=== PATIENT | female | born 1955 | race American Indian/Alaskan Native ===

== ENCOUNTER 2016-08-08 18:42 | Emergency (ER) | payer MEDICAID ==
[2016-08-08 19:21] VITALS: BP 149/98
[2016-08-08 19:35] LABS: Basophils % (Auto) 0.7 % (0.0-1.8); Eosinophils % (Auto) 3.5 % (0.0-4.3); Hemoglobin 13.9 gm/dl (10.1-14.3); Mean Corpuscular HGB Conc 32 % (30-34); Mean Corpuscular Hemoglobin 27 pg (28-32); Mean Corpuscular Volume 84 fl (79-97); Platelet Count 279 K/mm3 (140-440); Red Cell Distribution Width 13.8 % (13.2-15.2); White Blood Count 6.8 K/mm3 (4.5-11.0)
[2016-08-08 20:15] LABS: Anion Gap 17 mmol/L; BUN/Creatinine Ratio 24.28; Blood Urea Nitrogen 17 mg/dL (7-17); Calcium 9.6 mg/dL (8.4-10.2); Carbon Dioxide 27 mmol/L (22-30); Chloride 100.1 mmol/L (98-107); Glucose 93 mg/dL (65-100); Potassium 4.1 mmol/L (3.6-5.0); Sodium 140 mmol/L (137-145)
--- NOTE | 2016-08-09 09:02 | XRay Report ---
Chest 2 views: History: Shortness of breath. Findings: Normal cardiomediastinal silhouette. Trachea is midline. No consolidation, pneumothorax or pleural effusion. Impression: No acute cardiopulmonary findings.
== END 2016-08-08 21:30 | disposition left against medical advice (07) ==
LOC: ED 18:42
DX: J40 Bronchitis, not specified as acute or chronic (principal); J44.9 Chronic obstructive pulmonary disease, unspecified; R06.02 Shortness of breath; R05 Cough
CPT/HCPCS: 36415; 71020; 80048; 84484; 85025; 93005; 93010

== ENCOUNTER 2018-10-20 03:41 | Inpatient (IN) | payer MEDICAID ==
[2018-10-20] MEDS ORDERED: NACL 0.9% 1000 ML 1,000 ML IV ONE (03:45)
[2018-10-20] MEDS ORDERED: PROVENTIL IH ONE (03:45)
[2018-10-20] MEDS ORDERED: ATROVENT IH ONE (03:45)
[2018-10-20] MEDS ORDERED: MAGNESIUM SULFATE 2GM/50ML 2 GM/50 ML BAG IV ONE (03:45)
--- NOTE | 2018-10-20 03:48 | Emergency Department Report ---
ED Shortness of Breath HPI - General Chief Complaint: Dyspnea/Respdistress Stated Complaint: JERMAINE Time Seen by Provider: 10/20/18 03:44 Source: patient, EMS (ems notes not available at time of chart dictation), RN notes reviewed, old records reviewed Mode of arrival: Stretcher (verbal report received from EMS) Limitations: Physical Limitation - History of Present Illness Initial Comments: This is a 63-year-old female. I have evaluated this patient in the past. The patient has a past medical history of COPD, COPD exacerbation. The patient is brought to the hospital today by emergency medical services for presumed COPD exacerbation. The patient reports no DVT or pulmonary embolism risk factors. She describes painless cough, wheezing, shortness of breath, dry cough, no fevers or chills. She is not having pain. She was given steroids, magnesium, started on CPAP in the field. These interventions somewhat improve her symptoms, but they did not resolve them. She still having constant wheezing, cough and shortness of breath. It worsens with physical exertion, decreases with rest, and decreases with supportive care. MD Complaint: shortness of breath, cough -: Gradual Consistency: constant Improves With: oxygen, rest, bronchodilators, medication Worsens With: lying flat Known History Of: COPD - Related Data Home Medications Medication Instructions Recorded Confirmed Last Taken hydroCHLOROthiazide [HCTZ] 25 mg PO DAILY 04/12/15 05/11/15 Unknown Tiotropium [Spiriva] 18 mcg IH QDAY 05/11/15 05/11/15 Unknown Previous Rx's Medication Instructions Recorded Last Taken Type ALBUTEROL Inhaler (OR & NICU) 2 puff IH QID PRN #1 inhalation 03/24/15 Unknown Rx [ProAir HFA Inhaler] Fluticasone/Salmeterol [Advair 1 puff IH BID #1 disk.w.dev 03/24/15 Unknown Rx Diskus 250-50 mcg] Budesonide [Pulmicort Respules] 0.5 mg IH Q12HRT #60 nebu 05/14/15 Unknown Rx DOXYCYCLINE Hyclate [Vibramycin 100 mg PO BID #10 capsule 05/14/15 Unknown Rx CAP] Ipratropium/Albuterol Sulfate 1 ampul IH TIDRT #90 ampul.neb 05/14/15 Unknown Rx [DUONEB *Not for PRN Use*] Prednisone [predniSONE 10 mg 10 mg PO .TAPER #1 tab.ds.pk 05/14/15 Unknown Rx (6-Day Pack, 21 Tabs)] traMADol [Ultram 50 MG tab] 50 mg PO Q6HR PRN #20 tablet 05/14/15 Unknown Rx Ibuprofen [Motrin] 800 mg PO Q8HR PRN #20 tablet 08/12/15 Unknown Rx traMADol [Ultram 50 MG tab] 50 mg PO Q4HR PRN #20 tablet 08/12/15 Unknown Rx Allergies Allergy/AdvReac Type Severity Reaction Status Date / Time No Known Allergies Allergy Unverified 06/07/13 12:53 ED Review of Systems ROS: Stated complaint: JERMAINE Other details as noted in HPI Constitutional: malaise, weakness. denies: fever Eyes: denies: eye discharge ENT: congestion Respiratory: shortness of breath, wheezing Cardiovascular: denies: syncope Musculoskeletal: denies: back pain Skin: denies: lesions Neurological: weakness Psychiatric: anxiety ED Past Medical Hx - Past Medical History Hx Hypertension: Yes Hx Heart Attack/AMI: No Hx Congestive Heart Failure: No Hx Diabetes: No Hx Deep Vein Thrombosis: No Hx Pulmonary Embolism: No Hx Sickle Cell Disease: No Hx Asthma: Yes Hx COPD: Yes Hx Tuberculosis: No Hx HIV: No - Surgical History Hx Coronary Stent: No Hx Pacemaker: No Hx Internal Defibrillator: No - Social History Smoking Status: Current Every Day Smoker Substance Use Type: Alcohol - Medications Home Medications: Home Medications Medication Instructions Recorded Confirmed Last Taken Type ALBUTEROL Inhaler (OR & NICU) 2 puff IH QID PRN #1 inhalation 03/24/15 05/11/15 Unknown Rx [ProAir HFA Inhaler] Fluticasone/Salmeterol [Advair 1 puff IH BID #1 disk.w.dev 03/24/15 05/11/15 Unknown Rx Diskus 250-50 mcg] hydroCHLOROthiazide [HCTZ] 25 mg PO DAILY 04/12/15 05/11/15 Unknown History Tiotropium [Spiriva] 18 mcg IH QDAY 05/11/15 05/11/15 Unknown History Budesonide [Pulmicort Respules] 0.5 mg IH Q12HRT #60 nebu 05/14/15 Unknown Rx DOXYCYCLINE Hyclate [Vibramycin 100 mg PO BID #10 capsule 05/14/15 Unknown Rx CAP] Ipratropium/Albuterol Sulfate 1 ampul IH TIDRT #90 ampul.neb 05/14/15 Unknown Rx [DUONEB *Not for PRN Use*] Prednisone [predniSONE 10 mg 10 mg PO .TAPER #1 tab.ds.pk 05/14/15 Unknown Rx (6-Day Pack, 21 Tabs)] traMADol [Ultram 50 MG tab] 50 mg PO Q6HR PRN #20 tablet 05/14/15 Unknown Rx Ibuprofen [Motrin] 800 mg PO Q8HR PRN #20 tablet 08/12/15 Unknown Rx traMADol [Ultram 50 MG tab] 50 mg PO Q4HR PRN #20 tablet 08/12/15 Unknown Rx ED Physical Exam - General Limitations: No Limitations, Physical Limitation General appearance: alert, anxious, in distress - Head Head exam: Present: atraumatic, normocephalic - Eye Eye exam: Present: normal appearance, EOMI. Absent: nystagmus - ENT ENT exam: Present: normal exam, normal orophraynx, mucous membranes moist, normal external ear exam - Neck Neck exam: Present: normal inspection, full ROM. Absent: tenderness, meningismus - Respiratory Respiratory exam: Present: respiratory distress, wheezes, rhonchi - Cardiovascular Cardiovascular Exam: Present: regular rate, normal rhythm, normal heart sounds. Absent: bradycardia, tachycardia, irregular rhythm, systolic murmur, diastolic murmur, rubs, gallop - GI/Abdominal GI/Abdominal exam: Present: soft. Absent: distended, tenderness, guarding, rebound, rigid, pulsatile mass - Extremities Exam Extremities exam: Present: normal inspection, full ROM, other (2+ pulses noted in the bilateral upper, lower extremities. Compartments soft. No long bony tenderness. The pelvis is stable.). Absent: pedal edema, joint swelling, calf tenderness - Back Exam Back exam: Present: normal inspection, full ROM. Absent: tenderness, CVA tenderness (R), CVA tenderness (L), paraspinal tenderness, vertebral tenderness - Neurological Exam Neurological exam: Present: alert, other (Extraocular movements intact. Tongue midline. No facial droop. Facial sensation intact to light touch in the V1, V2, V3 distribution bilaterally. 5 and 5 strength in 4 extremities.. Sensation is intact to light touch in 4 extremities.). Absent: motor sensory deficit - Psychiatric Psychiatric exam: Present: anxious - Skin Skin exam: Present: warm, dry, intact, normal color. Absent: rash ED Course Vital Signs 10/20/18 10/20/18 10/20/18 03:42 03:46 03:57 Temperature 98.8 F Pulse Rate 110 H 111 H Respiratory 23 26 H Rate Blood Pressure Blood Pressure 161/113 [Left] O2 Sat by Pulse 95 99 99 Oximetry 10/20/18 10/20/18 10/20/18 03:58 04:00 04:09 Temperature Pulse Rate 112 H 111 H Respiratory 32 H 20 22 Rate Blood Pressure 161/113 Blood Pressure [Left] O2 Sat by Pulse 100 100 99 Oximetry 10/20/18 04:14 Temperature Pulse Rate 114 H Respiratory 20 Rate Blood Pressure Blood Pressure 152/96 [Left] O2 Sat by Pulse 100 Oximetry ED Medical Decision Making - Lab Data Result diagrams: 10/20/18 03:58 10/20/18 03:58 Vital Signs 10/20/18 10/20/18 10/20/18 03:42 03:46 03:57 Temperature 98.8 F Pulse Rate 110 H 111 H Pulse Rate [ Bilateral Throughout] Respiratory 23 26 H Rate Respiratory Rate [Bilateral Throughout] Blood Pressure Blood Pressure 161/113 [Left] O2 Sat by Pulse 95 99 99 Oximetry 10/20/18 10/20/18 10/20/18 03:58 04:00 04:09 Temperature Pulse Rate 112 H 111 H Pulse Rate [ Bilateral Throughout] Respiratory 32 H 20 22 Rate Respiratory Rate [Bilateral Throughout] Blood Pressure 161/113 Blood Pressure [Left] O2 Sat by Pulse 100 100 99 Oximetry 10/20/18 10/20/18 04:14 04:35 Temperature Pulse Rate 114 H Pulse Rate [ 106 H Bilateral Throughout] Respiratory 20 Rate Respiratory 24 Rate [Bilateral Throughout] Blood Pressure Blood Pressure 152/96 [Left] O2 Sat by Pulse 100 Oximetry Lab Results 10/20/18 10/20/18 10/20/18 Range/Units 03:58 03:58 03:58 WBC 9.3 (4.5-11.0) K/mm3 RBC 5.35 H (3.65-5.03) M/mm3 Hgb 14.9 H (10.1-14.3) gm/dl Hct 44.6 H (30.3-42.9) % MCV 83 (79-97) fl MCH 28 (28-32) pg MCHC 34 (30-34) % RDW 14.2 (13.2-15.2) % Plt Count 283 (140-440) K/mm3 Lymph % (Auto) 20.0 (13.4-35.0) % Lee % (Auto) 9.2 H (0.0-7.3) % Eos % (Auto) 1.0 (0.0-4.3) % Baso % (Auto) 0.5 (0.0-1.8) % Lymph # 1.9 (1.2-5.4) K/mm3 Lee # 0.9 H (0.0-0.8) K/mm3 Eos # 0.1 (0.0-0.4) K/mm3 Baso # 0.0 (0.0-0.1) K/mm3 Seg Neutrophils % 69.3 (40.0-70.0) % Seg Neutrophils # 6.4 (1.8-7.7) K/mm3 PT 11.9 L (12.2-14.9) Sec. INR 0.90 (0.87-1.13) Sodium 141 (137-145) mmol/L Potassium 3.7 (3.6-5.0) mmol/L Chloride 101.0 (98-107) mmol/L Carbon Dioxide 29 (22-30) mmol/L Anion Gap 15 mmol/L BUN 15 (7-17) mg/dL Creatinine 0.9 (0.7-1.2) mg/dL Estimated GFR > 60 ml/min BUN/Creatinine Ratio 17 % Glucose 142 H (65-100) mg/dL Calcium 9.0 (8.4-10.2) mg/dL Magnesium 3.70 H (1.7-2.3) mg/dL Total Creatine Kinase (30-135) units/L 10/20/ Range/Units 03:58 WBC (4.5-11.0) K/mm3 RBC (3.65-5.03) M/mm3 Hgb (10.1-14.3) gm/dl Hct (30.3-42.9) % MCV (79-97) fl MCH (28-32) pg MCHC (30-34) % RDW (13.2-15.2) % Plt Count (140-440) K/mm3 Lymph % (Auto) (13.4-35.0) % Lee % (Auto) (0.0-7.3) % Eos % (Auto) (0.0-4.3) % Baso % (Auto) (0.0-1.8) % Lymph # (1.2-5.4) K/mm3 Lee # (0.0-0.8) K/mm3 Eos # (0.0-0.4) K/mm3 Baso # (0.0-0.1) K/mm3 Seg Neutrophils % (40.0-70.0) % Seg Neutrophils # (1.8-7.7) K/mm3 PT (12.2-14.9) Sec. INR (0.87-1.13) Sodium (137-145) mmol/L Potassium (3.6-5.0) mmol/L Chloride (98-107) mmol/L Carbon Dioxide (22-30) mmol/L Anion Gap mmol/L BUN (7-17) mg/dL Creatinine (0.7-1.2) mg/dL Estimated GFR ml/min BUN/Creatinine Ratio % Glucose (65-100) mg/dL Calcium (8.4-10.2) mg/dL Magnesium (1.7-2.3) mg/dL Total Creatine Kinase 37 (30-135) units/L - EKG Data -: EKG Interpreted by Ga - EKG Data 10/20/18 04:39 Sinus tachycardia, 109 bpm, normal axis, QTC prolonged, atrial enlargement, left ventricular hypertrophy, motion artifact, abnormal EKG, normal endorsement of chest pain, not consistent with ST elevation myocardial infarction, unchanged from prior EKG from 08/08/2016. - Radiology Data Radiology results: report reviewed, image reviewed X-ray of the chest is negative for acute disease - Medical Decision Making Differential diagnosis, including but not limited to: Bronchitis, asthma, COPD exacerbation Assessment and plan: 63-year-old female with cough, wheezing, shortness of breath, endorses no pulmonary embolism or DVT risk factors, low risk by well's criteria, with probable COPD exacerbation, requiring BiPAP. She is clinically improved on BiPAP but still wheezing. Patient will be admitted to the medical service for supportive care for presumed COPD exacerbation. The Hospital physician, Dr. Billingsley has accepted the patient to the medical service. Critical Care Time: Yes Critical care time in (mins) excluding proc time.: 35 Critical care attestation.: If time is entered above; I have spent that time in minutes in the direct care of this critically ill patient, excluding procedure time. ED Disposition Clinical Impression: COPD exacerbation Disposition: OP ADMIT IP TO THIS HOSP Is pt being admited?: Yes Does the pt Need Aspirin: No Condition: Good Instructions: Chronic Bronchitis (ED)
[2018-10-20 04:19] LABS: Basophils % (Auto) 0.5 % (0.0-1.8); Eosinophils # (Auto) 0.1 K/mm3 (0.0-0.4); Hematocrit 44.6 % (30.3-42.9); Hemoglobin 14.9 gm/dl (10.1-14.3); Lymphocytes # (Auto) 1.9 K/mm3 (1.2-5.4); Mean Corpuscular HGB Conc 34 % (30-34); Mean Corpuscular Volume 83 fl (79-97); Monocytes # (Auto) 0.9 K/mm3 (0.0-0.8); Monocytes % (Auto) 9.2 % (0.0-7.3); Platelet Count 283 K/mm3 (140-440); Red Blood Count 5.35 M/mm3 (3.65-5.03); Red Cell Distribution Width 14.2 % (13.2-15.2)
--- NOTE | 2018-10-20 04:24 | XRay Report ---
CHEST 1 VIEW 10/20/2018 3:51 AM INDICATION / CLINICAL INFORMATION: Dyspnea. COMPARISON: None available. FINDINGS: SUPPORT DEVICES: None. HEART / MEDIASTINUM: No significant abnormality. LUNGS / PLEURA: No significant pulmonary or pleural abnormality. No pneumothorax. ADDITIONAL FINDINGS: No significant additional findings. IMPRESSION: No acute findings. Signer Name: Henri Lau MD Signed: 10/20/2018 4:19 AM Workstation Name: [id number]
[2018-10-20 04:29] LABS: INR 0.9 (0.87-1.13)
[2018-10-20 04:33] LABS: BUN/Creatinine Ratio 17; Blood Urea Nitrogen 15 mg/dL (7-17); Hemolysis Index 6
[2018-10-20] MEDS ORDERED: DOXYCYCLINE HYCLATE 100 MG in NACL 0.9% 250ML 250 ML IV ONE (04:35)
[2018-10-20] MEDS ORDERED: SODIUM CHLORIDE FLUSH SYRINGE 10 ML IV PRN (04:54)
[2018-10-20] MEDS ORDERED: ZOFRAN IV PRN (04:54)
--- NOTE | 2018-10-20 04:59 | History and Physical Report ---
History of Present Illness Date of examination: 10/20/18 History of present illness: 63-year-old woman with a history of hypertension, COPD comes emergency room with complaints of shortness of breath since Wednesday. She ran out of her nebulizer treatments. Also complaining of cough productive of yellow phlegm, no fever or chills. Patient given steroids, breathing treatment placed on BiPAP in the field Review of systems Constitutional: no weight loss, chills, fever Ears, eyes, nose, mouth and throat: no nasal congestion, no nasal discharge, no sinus pressure, no vision change, no red eye. Neck: No neck pain or rigidity. Cardiovascular: no palpitations, chest pain Respiratory:+cough, shortness of breath Gastrointestinal: no hematochezia, abdominal pain Genitourinary : no frequency , no hematuria Musculoskeletal: no joint swelling or muscle ache Integumentary: no rash, no pruritis Neurological: no parathesias, no focal weakness Endocrine: no cold or heat intolerance, no polyuria or polydipsia Hematologic/Lymphatic: no easy bruising, no easy bleeding, no gland swelling Allergic/Immunologic: no urticaria, no angioedema. PAST MEDICAL HISTORY:hypertension, COPD PAST SURGICAL HISTORY: None SOCIAL HISTORY: Denies alcohol, drugs, tobacco FAMILY HISTORY: Hypertension Medications and Allergies Allergies Allergy/AdvReac Type Severity Reaction Status Date / Time No Known Allergies Allergy Unverified 06/07/13 12:53 Home Medications Medication Instructions Recorded Confirmed Last Taken Type ALBUTEROL Inhaler (OR & NICU) 2 puff IH QID PRN #1 inhalation 03/24/15 05/11/15 Unknown Rx [ProAir HFA Inhaler] Fluticasone/Salmeterol [Advair 1 puff IH BID #1 disk.w.dev 03/24/15 05/11/15 Unknown Rx Diskus 250-50 mcg] hydroCHLOROthiazide [HCTZ] 25 mg PO DAILY 04/12/15 05/11/15 Unknown History Tiotropium [Spiriva] 18 mcg IH QDAY 05/11/15 05/11/15 Unknown History Budesonide [Pulmicort Respules] 0.5 mg IH Q12HRT #60 nebu 05/14/15 Unknown Rx DOXYCYCLINE Hyclate [Vibramycin 100 mg PO BID #10 capsule 05/14/15 Unknown Rx CAP] Ipratropium/Albuterol Sulfate 1 ampul IH TIDRT #90 ampul.neb 05/14/15 Unknown Rx [DUONEB *Not for PRN Use*] Prednisone [predniSONE 10 mg 10 mg PO .TAPER #1 tab.ds.pk 05/14/15 Unknown Rx (6-Day Pack, 21 Tabs)] traMADol [Ultram 50 MG tab] 50 mg PO Q6HR PRN #20 tablet 05/14/15 Unknown Rx Ibuprofen [Motrin] 800 mg PO Q8HR PRN #20 tablet 08/12/15 Unknown Rx traMADol [Ultram 50 MG tab] 50 mg PO Q4HR PRN #20 tablet 08/12/15 Unknown Rx Active Meds: Active Medications Acetaminophen (Tylenol) 650 mg PO Q4H PRN PRN Reason: Pain MILD(1-3)/Fever >100.5/MOTTA Albuterol/Ipratropium (Duoneb *Not For Prn Use*) 1 ampul IH Q6HRT KIMBERLY Enoxaparin Sodium (Lovenox) 30 mg SUB-Q QDAY KIMBERLY Doxycycline Hyclate 100 mg/ (Sodium Chloride) 250 mls @ 250 mls/hr IV ONCE ONE; Protocol Stop: 10/20/18 05:34 Last Admin: 10/20/18 04:00 Dose: 250 mls/hr Documented by: Methylprednisolone Sodium Succinate (Solu-Medrol) 125 mg IV Q6HR KIMBERLY Ondansetron HCl (Zofran) 4 mg IV Q8H PRN PRN Reason: Nausea And Vomiting Sodium Chloride (Sodium Chloride Flush Syringe 10 Ml) 10 ml IV BID KIMBERLY Sodium Chloride (Sodium Chloride Flush Syringe 10 Ml) 10 ml IV PRN PRN PRN Reason: LINE FLUSH Exam - Physical Exam Narrative exam: General Apperance: The patient lying in bed, breathing comfortable HEENT: Normocephalic, atraumatic. Pupils equally round and reactive to light, EOMI, no sclericterus or JVD or thyromegaly or nodule. , no carotid bruit, mucous membranes moist, no exudate or erythema Heart: S1-S2, regular is rhythm Lungs: Decreased air entry bilaterally, breathing comfortable Abdomen: Positive bowel sounds, soft, nontender, nondistended, no organomegaly Extremities: No edema cyanosis clubbing Skin: no rash, nodule, warm and dry Neuro: cranial nerves 2-12 intact, speech is fluent, motor/sensory intact - Constitutional Vitals: Temp Pulse Resp BP Pulse Ox 98.8 F 106 H 24 152/96 100 10/20/18 03:57 10/20/18 04:35 10/20/18 04:35 10/20/18 04:14 10/20/18 04:14 Results - Labs CBC & Chem 7: 10/20/18 03:58 10/20/18 03:58 Labs: Abnormal lab results 10/20/18 10/20/18 10/20/18 Range/Units 03:58 03:58 03:58 RBC 5.35 H (3.65-5.03) M/mm3 Hgb 14.9 H (10.1-14.3) gm/dl Hct 44.6 H (30.3-42.9) % Camp % (Auto) 9.2 H (0.0-7.3) % Camp # 0.9 H (0.0-0.8) K/mm3 PT 11.9 L (12.2-14.9) Sec. Glucose 142 H (65-100) mg/dL Magnesium 3.70 H (1.7-2.3) mg/dL - Imaging and Cardiology Chest x-ray: report reviewed Assessment and Plan Assessment Acute respiratory failure COPD exacerbation Hypertension Plan Admit to medicine Continue BiPAP Start high-dose steroids, breathing treatment, IV azithromycin Continue appropriate outpatient medications DVT prophylaxis
[2018-10-20] MEDS: SOLU-Medrol IV SCH ×4 (06:00→23:56)
[2018-10-20] MEDS ORDERED: SOLU-Medrol ONE (06:53)
[2018-10-20] MEDS ORDERED: DUONEB *Not for PRN Use IH ONE (08:28)
[2018-10-20] MEDS: DUONEB *Not for PRN Use IH SCH ×3 (08:29→20:25)
[2018-10-20] MEDS ORDERED: LOVENOX SUB-Q SCH (10:00)
[2018-10-20] MEDS ORDERED: PNEUMOVAX 23 IM ONE (10:02)
[2018-10-20] MEDS: LOVENOX SUB-Q SCH (10:07)
[2018-10-20] MEDS: ZITHROMAX 500 MG in NACL 0.9% 250ML 250 ML IV SCH (10:07)
[2018-10-20] MEDS: SODIUM CHLORIDE FLUSH SYRINGE 10 ML IV SCH ×2 (10:08→22:22)
--- NOTE | 2018-10-20 13:16 | Progress Note ---
Assessment and Plan Assessment and plan: Acute COPD exacerbation. Continue bronchodilators and nebulizer treatments. Acute hypoxemic respiratory failure. Continue O2 to maintain sats. Etiology secondary to above. BiPAP as clinically indicated. Hypertension. Continue antihypertensive medications. History Interval history: No new issues overnight. Hospitalist Physical - Constitutional Vitals: Temp Pulse Resp BP Pulse Ox 98.8 F 94 H 23 143/92 99 10/20/18 03:57 10/20/18 12:01 10/20/18 12:01 10/20/18 06:30 10/20/18 12:01 General appearance: Present: no acute distress, well-nourished - EENT Eyes: Present: PERRL, EOM intact ENT: hearing intact, clear oral mucosa, dentition normal - Neck Neck: Present: supple, normal ROM - Respiratory Respiratory effort: normal Respiratory: bilateral: CTA - Cardiovascular Rhythm: regular Heart Sounds: Present: S1 & S2. Absent: gallop, rub - Extremities Extremities: no ischemia, No edema, Full ROM - Abdominal General gastrointestinal: soft, non-tender, non-distended, normal bowel sounds - Integumentary Integumentary: Present: clear, warm, dry - Neurologic Neurologic: CNII-XII intact, moves all extremities Results - Labs CBC & Chem 7: 10/20/18 03:58 10/20/18 03:58 Labs: Laboratory Last Values WBC 9.3 K/mm3 (4.5-11.0) 10/20/18 03:58 RBC 5.35 M/mm3 (3.65-5.03) H 10/20/18 03:58 Hgb 14.9 gm/dl (10.1-14.3) H 10/20/18 03:58 Hct 44.6 % (30.3-42.9) H 10/20/18 03:58 MCV 83 fl (79-97) 10/20/18 03:58 MCH 28 pg (28-32) 10/20/18 03:58 MCHC 34 % (30-34) 10/20/18 03:58 RDW 14.2 % (13.2-15.2) 10/20/18 03:58 Plt Count 283 K/mm3 (140-440) 10/20/18 03:58 Lymph % (Auto) 20.0 % (13.4-35.0) 10/20/18 03:58 Irwin % (Auto) 9.2 % (0.0-7.3) H 10/20/18 03:58 Eos % (Auto) 1.0 % (0.0-4.3) 10/20/18 03:58 Baso % (Auto) 0.5 % (0.0-1.8) 10/20/18 03:58 Lymph # 1.9 K/mm3 (1.2-5.4) 10/20/18 03:58 Irwin # 0.9 K/mm3 (0.0-0.8) H 10/20/18 03:58 Eos # 0.1 K/mm3 (0.0-0.4) 10/20/18 03:58 Baso # 0.0 K/mm3 (0.0-0.1) 10/20/18 03:58 Seg Neutrophils % 69.3 % (40.0-70.0) 10/20/18 03:58 Seg Neutrophils # 6.4 K/mm3 (1.8-7.7) 10/20/18 03:58 PT 11.9 Sec. (12.2-14.9) L 10/20/18 03:58 INR 0.90 (0.87-1.13) 10/20/18 03:58 Sodium 141 mmol/L (137-145) 10/20/18 03:58 Potassium 3.7 mmol/L (3.6-5.0) 10/20/18 03:58 Chloride 101.0 mmol/L (98-107) 10/20/18 03:58 Carbon Dioxide 29 mmol/L (22-30) 10/20/18 03:58 15 mmol/L 10/20/18 03:58 BUN 15 mg/dL (7-17) 10/20/18 03:58 0.9 mg/dL (0.7-1.2) 10/20/18 03:58 Estimated GFR > 60 ml/min 10/20/18 03:58 17 % 10/20/18 03:58 Glucose 142 mg/dL (65-100) H 10/20/18 03:58 Calcium 9.0 mg/dL (8.4-10.2) 10/20/18 03:58 Magnesium 3.70 mg/dL (1.7-2.3) H 10/20/18 03:58 37 units/L (30-135) 10/20/18 03:58 Active Medications - Current Medications Current Medications: Generic Name Dose Route Start Last Admin Trade Name Freq PRN Reason Stop Dose Admin Acetaminophen 650 mg 10/20/18 04:54 Tylenol PO Q4H PRN Pain MILD(1-3)/Fever >100.5/MOTTA Albuterol/Ipratropium 1 ampul 10/20/18 08:00 10/20/18 08:29 Duoneb *Not For Prn Use* IH 1 ampul Q6HRT KIMBERLY Administration Enoxaparin Sodium 40 mg 10/20/18 10:00 10/20/18 10:07 Lovenox SUB-Q 40 mg QDAY@1000 KIMBERLY Administration Azithromycin 500 mg/ Sodium 250 mls @ 250 mls/hr 10/20/18 10:00 10/20/18 10:07 Chloride IV 250 mls/hr Q24HR KIMBERLY Administration Protocol Methylprednisolone Sodium Succinate 125 mg 10/20/18 06:00 10/20/18 11:50 Solu-Medrol IV 125 mg Q6HR KIMBERLY Administration Ondansetron HCl 4 mg 10/20/18 04:54 Zofran IV Q8H PRN Nausea And Vomiting Pneumococcal Polyvalent Vaccine 0.5 ml 10/21/18 12:00 Pneumovax 23 IM 10/21/18 12:01 .ONCE ONE Sodium Chloride 10 ml 10/20/18 10:00 10/20/18 10:08 Sodium Chloride Flush Syringe 10 Ml IV 10 ml BID KIMBERLY Administration Sodium Chloride 10 ml 10/20/18 04:54 Sodium Chloride Flush Syringe 10 Ml IV PRN PRN LINE FLUSH
[2018-10-20] MEDS: TYLENOL PO PRN ×2 (14:19→22:21)
[2018-10-20] MEDS: BROVANA NEBU IH SCH (20:25)
[2018-10-20] MEDS: PULMICORT IH SCH (20:25)
[2018-10-21] MEDS: DUONEB *Not for PRN Use IH SCH ×4 (02:21→20:21)
[2018-10-21] MEDS: SOLU-Medrol IV SCH ×3 (06:00→18:53)
[2018-10-21 06:38] LABS: Hematocrit 38.4 % (30.3-42.9); Hemoglobin 12.9 gm/dl (10.1-14.3); Mean Corpuscular HGB Conc 34 % (30-34); Mean Corpuscular Volume 84 fl (79-97); Platelet Count 231 K/mm3 (140-440); Red Blood Count 4.58 M/mm3 (3.65-5.03); Red Cell Distribution Width 13.8 % (13.2-15.2)
[2018-10-21 06:56] LABS: BUN/Creatinine Ratio 16; Blood Urea Nitrogen 11 mg/dL (7-17); Calcium 8.8 mg/dL (8.4-10.2); Hemolysis Index 14
[2018-10-21 08:32] LABS: Total Cells Counted 100
[2018-10-21 08:33] LABS: Basophils % (Manual) 0 % (0.0-1.8); Eosinophils % (Manual) 0 % (0.0-4.3)
[2018-10-21 08:34] LABS: Anisocytosis RARE
[2018-10-21 08:35] LABS: Platelet Estimate Consistent w Auto; Poikilocytosis Few
[2018-10-21] MEDS: BROVANA NEBU IH SCH ×2 (08:46→20:21)
[2018-10-21] MEDS: PULMICORT IH SCH ×2 (08:46→20:21)
[2018-10-21] MEDS: LOVENOX SUB-Q SCH (09:09)
[2018-10-21] MEDS: ZITHROMAX 500 MG in NACL 0.9% 250ML 250 ML IV SCH (09:10)
[2018-10-21] MEDS: SODIUM CHLORIDE FLUSH SYRINGE 10 ML IV SCH ×2 (09:10→22:04)
--- NOTE | 2018-10-21 11:43 | Progress Note ---
Assessment and Plan Assessment and plan: Acute COPD exacerbation. Continue bronchodilators and nebulizer treatments. Patient still exhibiting some conversational dyspnea. Acute hypoxemic respiratory failure. Continue O2 to maintain sats. Etiology secondary to above. BiPAP as clinically indicated. Hypertension. Continue antihypertensive medications. History Interval history: No new issues overnight. Hospitalist Physical - Constitutional Vitals: Temp Pulse Resp BP Pulse Ox 98.2 F 71 20 148/95 94 10/21/18 08:37 10/21/18 10:00 10/21/18 08:40 10/21/18 08:37 10/21/18 08:51 General appearance: Present: no acute distress, well-nourished - EENT Eyes: Present: PERRL, EOM intact ENT: hearing intact, clear oral mucosa, dentition normal - Neck Neck: Present: supple, normal ROM - Respiratory Respiratory effort: normal Respiratory: bilateral: CTA - Cardiovascular Rhythm: regular Heart Sounds: Present: S1 & S2. Absent: gallop, rub - Extremities Extremities: no ischemia, No edema, Full ROM - Abdominal General gastrointestinal: soft, non-tender, non-distended, normal bowel sounds - Integumentary Integumentary: Present: clear, warm, dry - Neurologic Neurologic: CNII-XII intact, moves all extremities Results - Labs CBC & Chem 7: 10/21/18 05:05 10/21/18 05:05 Labs: Laboratory Last Values WBC 10.5 K/mm3 (4.5-11.0) 10/21/18 05:05 RBC 4.58 M/mm3 (3.65-5.03) 10/21/18 05:05 Hgb 12.9 gm/dl (10.1-14.3) 10/21/18 05:05 Hct 38.4 % (30.3-42.9) D 10/21/18 05:05 MCV 84 fl (79-97) 10/21/18 05:05 MCH 28 pg (28-32) 10/21/18 05:05 MCHC 34 % (30-34) 10/21/18 05:05 RDW 13.8 % (13.2-15.2) 10/21/18 05:05 Plt Count 231 K/mm3 (140-440) 10/21/18 05:05 Lymph % (Auto) 20.0 % (13.4-35.0) 10/20/18 03:58 Churchill % (Auto) 9.2 % (0.0-7.3) H 10/20/18 03:58 Eos % (Auto) 1.0 % (0.0-4.3) 10/20/18 03:58 Baso % (Auto) 0.5 % (0.0-1.8) 10/20/18 03:58 Lymph # 1.9 K/mm3 (1.2-5.4) 10/20/18 03:58 Churchill # 0.9 K/mm3 (0.0-0.8) H 10/20/18 03:58 Eos # 0.1 K/mm3 (0.0-0.4) 10/20/18 03:58 Baso # 0.0 K/mm3 (0.0-0.1) 10/20/18 03:58 Add Manual Diff Complete 10/21/18 05:05 Total Counted 100 10/21/18 05:05 Seg Neutrophils % Ux Developer 10/21/18 05:05 Seg Neuts % (Manual) 88.0 % (40.0-70.0) H 10/21/18 05:05 0 % 10/21/18 05:05 9.0 % (13.4-35.0) L 10/21/18 05:05 Reactive Lymphs % (Man) 0 % 10/21/18 05:05 3.0 % (0.0-7.3) 10/21/18 05:05 0 % (0.0-4.3) 10/21/18 05:05 0 % (0.0-1.8) 10/21/18 05:05 0 % 10/21/18 05:05 0 % 10/21/18 05:05 0 % 10/21/18 05:05 0 % 10/21/18 05:05 Nucleated RBC % Not Reportable 10/21/18 05:05 Seg Neutrophils # 6.4 K/mm3 (1.8-7.7) 10/20/18 03:58 Seg Neutrophils # Man 9.2 K/mm3 (1.8-7.7) H 10/21/18 05:05 Band Neutrophils # 0.0 K/mm3 10/21/18 05:05 0.9 K/mm3 (1.2-5.4) L 10/21/18 05:05 Abs React Lymphs (Man) 0.0 K/mm3 10/21/18 05:05 0.3 K/mm3 (0.0-0.8) 10/21/18 05:05 0.0 K/mm3 (0.0-0.4) 10/21/18 05:05 0.0 K/mm3 (0.0-0.1) 10/21/18 05:05 0.0 K/mm3 10/21/18 05:05 0.0 K/mm3 10/21/18 05:05 0.0 K/mm3 10/21/18 05:05 Blast Cells # 0.0 K/mm3 10/21/18 05:05 WBC Morphology Not Reportable 10/21/18 05:05 Hypersegmented Neuts Not Reportable 10/21/18 05:05 Hyposegmented Neuts Not Reportable 10/21/18 05:05 Hypogranular Neuts Not Reportable 10/21/18 05:05 Not Reportable 10/21/18 05:05 Not Reportable 10/21/18 05:05 Not Reportable 10/21/18 05:05 Not Reportable 10/21/18 05:05 Not Reportable 10/21/18 05:05 Not Reportable 10/21/18 05:05 Consistent w auto 10/21/18 05:05 Not Reportable 10/21/18 05:05 Plt Clumps, EDTA Not Reportable 10/21/18 05:05 Not Reportable 10/21/18 05:05 Not Reportable 10/21/18 05:05 Not Reportable 10/21/18 05:05 Plt Morphology Comment Not Reportable 10/21/18 05:05 RBC Morphology Not Reportable 10/21/18 05:05 Dimorphic RBCs Not Reportable 10/21/18 05:05 Not Reportable 10/21/18 05:05 Not Reportable 10/21/18 05:05 Few 10/21/18 05:05 Rare 10/21/18 05:05 Not Reportable 10/21/18 05:05 Not Reportable 10/21/18 05:05 Not Reportable 10/21/18 05:05 Not Reportable 10/21/18 05:05 Not Reportable 10/21/18 05:05 Not Reportable 10/21/18 05:05 Not Reportable 10/21/18 05:05 Not Reportable 10/21/18 05:05 Not Reportable 10/21/18 05:05 Not Reportable 10/21/18 05:05 Not Reportable 10/21/18 05:05 Not Reportable 10/21/18 05:05 Not Reportable 10/21/18 05:05 Not Reportable 10/21/18 05:05 Not Reportable 10/21/18 05:05 Acanthocytes (Spur) Not Reportable 10/21/18 05:05 Rouleaux Not Reportable 10/21/18 05:05 Not Reportable 10/21/18 05:05 Not Reportable 10/21/18 05:05 Not Reportable 10/21/18 05:05 Not Reportable 10/21/18 05:05 Hem Pathologist Commnt No 10/21/18 05:05 PT 11.9 Sec. (12.2-14.9) L 10/20/18 03:58 INR 0.90 (0.87-1.13) 10/20/18 03:58 Sodium 143 mmol/L (137-145) 10/21/18 05:05 Potassium 4.0 mmol/L (3.6-5.0) 10/21/18 05:05 Chloride 107.8 mmol/L (98-107) H 10/21/18 05:05 Carbon Dioxide 26 mmol/L (22-30) 10/21/18 05:05 13 mmol/L 10/21/18 05:05 BUN 11 mg/dL (7-17) 10/21/18 05:05 0.7 mg/dL (0.7-1.2) 10/21/18 05:05 Estimated GFR > 60 ml/min 10/21/18 05:05 16 % 10/21/18 05:05 Glucose 193 mg/dL (65-100) H 10/21/18 05:05 Calcium 8.8 mg/dL (8.4-10.2) 10/21/18 05:05 Magnesium 3.70 mg/dL (1.7-2.3) H 10/20/18 03:58 37 units/L (30-135) 10/20/18 03:58 Active Medications - Current Medications Current Medications: Generic Name Dose Route Start Last Admin Trade Name Freq PRN Reason Stop Dose Admin Acetaminophen 650 mg 10/20/18 04:54 10/20/18 22:21 Tylenol PO 650 mg Q4H PRN Administration Pain MILD(1-3)/Fever >100.5/MOTTA Albuterol/Ipratropium 1 ampul 10/20/18 08:00 10/21/18 08:46 Duoneb *Not For Prn Use* IH 1 ampul Q6HRT KIMBERLY Administration Arformoterol Tartrate 15 mcg 10/20/18 20:00 10/21/18 08:46 Brovana Nebu IH 15 mcg Q12HRT KIMBERLY Administration Budesonide 0.5 mg 10/20/18 20:00 10/21/18 08:46 Pulmicort IH 0.5 mg Q12HRT KIMBERLY Administration Enoxaparin Sodium 40 mg 10/20/18 10:00 10/21/18 09:09 Lovenox SUB-Q 40 mg QDAY@1000 KIMBERLY Administration Azithromycin 500 mg/ Sodium 250 mls @ 250 mls/hr 10/20/18 10:00 10/21/18 10:45 Chloride IV 10/26/18 10:59 Infused Q24HR KIMBERLY Infusion Protocol Methylprednisolone Sodium Succinate 125 mg 10/20/18 06:00 10/21/18 11:29 Solu-Medrol IV 125 mg Q6HR KIMBERLY Administration Ondansetron HCl 4 mg 10/20/18 04:54 Zofran IV Q8H PRN Nausea And Vomiting Pneumococcal Polyvalent Vaccine 0.5 ml 10/21/18 12:00 10/21/18 11:29 Pneumovax 23 IM 10/21/18 12:01 0.5 ml .ONCE ONE Administration Sodium Chloride 10 ml 10/20/18 10:00 10/21/18 09:10 Sodium Chloride Flush Syringe 10 Ml IV 10 ml BID KIMBERLY Administration Sodium Chloride 10 ml 10/20/18 04:54 Sodium Chloride Flush Syringe 10 Ml IV PRN PRN LINE FLUSH
[2018-10-21] MEDS ORDERED: PNEUMOVAX 23 IM ONE (12:00)
[2018-10-22] MEDS ORDERED: APRESOLINE IV PRN
[2018-10-22] MEDS: SOLU-Medrol IV SCH ×2 (00:26→05:50)
[2018-10-22] MEDS: DUONEB *Not for PRN Use IH SCH ×3 (01:24→13:04)
[2018-10-22] MEDS: BROVANA NEBU IH SCH (07:33)
[2018-10-22] MEDS: PULMICORT IH SCH (07:33)
[2018-10-22] MEDS: ZITHROMAX 500 MG in NACL 0.9% 250ML 250 ML IV SCH (10:20)
[2018-10-22] MEDS: LOVENOX SUB-Q SCH (10:21)
[2018-10-22] MEDS: SODIUM CHLORIDE FLUSH SYRINGE 10 ML IV SCH (10:21)
--- NOTE | 2018-10-22 10:40 | Discharge Summary ---
Providers - Providers Date of Admission: 10/20/18 04:54 Date of discharge: 10/22/18 Attending physician: MISBAH BROWN Primary care physician: GURJIT ROJAS Hospitalization Reason for admission: copd exac Condition: Good Hospital course: 63-year-old woman with a history of hypertension, COPD comes emergency room with complaints of shortness of breath since Wednesday. She ran out of her nebulizer treatments. Also complaining of cough productive of yellow phlegm, no fever or chills. Patient given steroids, breathing treatment placed on BiPAP in the field. The patient was admitted with diagnosis of acute hypoxic respiratory failure secondary to COPD exacerbation. Patient received IV systemic steroids, bronchodilators and nebulizer treatments. Patient had slow but significant improvement throughout hospitalization and has returned back to her baseline respiratory status and will be discharged home. Dedicated discharge time 32 minutes. Disposition: DC-01 TO HOME OR SELFCARE Time spent for discharge: 32 - Discharge Diagnoses (1) Acute respiratory failure with hypoxia Status: Acute (2) COPD exacerbation Status: Acute (3) Hypertension Status: Chronic Qualifiers: Hypertension type: essential hypertension Qualified Code(s): I10 - Essential (primary) hypertension Core Measure Documentation - Palliative Care Palliative Care/ Comfort Measures: Not Applicable - Core Measures Any of the following diagnoses?: none Exam - Constitutional Vitals: Temp Pulse Resp BP Pulse Ox 98.2 F 89 18 160/75 96 10/22/18 07:30 10/22/18 07:33 10/22/18 07:33 10/22/18 07:30 10/22/18 07:33 General appearance: Present: no acute distress, well-nourished - EENT Eyes: Present: PERRL ENT: hearing intact, clear oral mucosa - Neck Neck: Present: supple, normal ROM - Respiratory Respiratory effort: normal Respiratory: bilateral: CTA - Cardiovascular Heart Sounds: Present: S1 & S2. Absent: rub, click - Extremities Extremities: pulses symmetrical, No edema Peripheral Pulses: within normal limits - Abdominal General gastrointestinal: Present: soft, non-tender, non-distended, normal bowel sounds Female genitourinary: Present: normal - Integumentary Integumentary: Present: clear, warm, dry - Musculoskeletal Musculoskeletal: gait normal, strength equal bilaterally - Psychiatric Psychiatric: appropriate mood/affect, intact judgment & insight - Neurologic Neurologic: CNII-XII intact, moves all extremities Plan Activity: advance as tolerated Weight Bearing Status: Weight Bear as Tolerated Diet: regular Follow up with: CAROLANN HERCULES MD [Referring] - 3-5 Days Prescriptions: Fluticasone/Salmeterol [Advair Diskus 250-50 mcg] 1 puff IH BID #1 disk.w.dev Ipratropium/Albuterol Sulfate [DUONEB *Not for PRN Use*] 1 ampul IH TIDRT #90 ampul.neb hydroCHLOROthiazide [HCTZ] 25 mg PO DAILY #30 capsule Prednisone [predniSONE 10 mg (6-Day Pack, 21 Tabs)] 10 mg PO .TAPER #1 tab.ds.pk ALBUTEROL Inhaler (OR & NICU) [ProAir HFA Inhaler] 2 puff IH QID PRN #1 inhalation PRN Reason: Shortness Of Breath Budesonide [Pulmicort Respules] 0.5 mg IH Q12HRT #60 nebu Tiotropium [Spiriva] 18 mcg IH QDAY #30 cap
[2018-10-22 11:35] VITALS: BP 193/103
== END 2018-10-22 14:05 | disposition home or self-care (01) | DRG 189 ==
LOC: ED 03:41 → 4A 04:54
PROVIDERS: ADMIT Internal Medicine; ATTEND Hospitalist
PROC: 5A09357 Assistance with Respiratory Ventilation, Less than 24 Consecutive Hours, Continuous Positive Airway Pressure (ICD-10-PCS; principal; 2018-10-20)
PROC: 3E0234Z Introduction of Serum, Toxoid and Vaccine into Muscle, Percutaneous Approach (ICD-10-PCS; 2018-10-20)
DX: J96.01 Acute respiratory failure with hypoxia (principal); J44.1 Chronic obstructive pulmonary disease with (acute) exacerbation; I10 Essential (primary) hypertension; F41.9 Anxiety disorder, unspecified; F17.200 Nicotine dependence, unspecified, uncomplicated; Z23 Encounter for immunization; Z82.49 Family history of ischemic heart disease and other diseases of the circulatory system; Z79.899 Other long term (current) drug therapy; Z72.89 Other problems related to lifestyle
CPT/HCPCS: 36415; 71045; 80048; 82550; 83735; 85007; 85025; 85610; 90732; 93005; 93010; 94640; 94644; 94760; 96365; 96366; 96368; 99406; G0378; J0360; J0456; J1650; J2930; J3475; J7030; J7050

== ENCOUNTER 2020-07-01 21:09 | Emergency (ER) | payer MEDICAID ==
[2020-07-01] MEDS ORDERED: MAGNESIUM SULFATE 2 GM/50 ML BAG IV ONE (21:58)
--- NOTE | 2020-07-01 21:58 | Emergency Department Report ---
HPI - General Time Seen by Provider: 07/01/20 21:40 - HPI HPI: This is a 64-year-old female presents to the emergency department via EMS from home with complaint of shortness of breath, coughing, wheezing. Overall this has been going on for the past 3 weeks but has progressively worsened over the past 4 to 5 days. The patient says that she went to [facility] for the same symptoms last , 5 days ago, but was not admitted at that time. She has a history of COPD for which she is oxygen dependent at home on 3 L via nasal cannula. The patient had a oxygen saturation of 91% on EMS arrival. She was given DuoNeb breathing treatments and a dose of Solu-Medrol which increased her oxygen saturation. The patient is a tobacco smoker. She denies any chest pain, fever, nausea, vomiting, lower extremity swelling. She follows with a Dr. Curry for primary care. No recent travel or sick contacts at home. ED Past Medical Hx - Past Medical History Hx Hypertension: Yes Hx CVA: No Hx Heart Attack/AMI: No Hx Congestive Heart Failure: No Hx Diabetes: No Hx Deep Vein Thrombosis: No Hx Pulmonary Embolism: No Hx GERD: No Hx Liver Disease: No Hx Renal Disease: No Hx Sickle Cell Disease: No Hx Arthritis: No Hx Headaches / Migraines: No Hx Seizures: No Hx Kidney Stones: No Hx Psychiatric Treatment: No Hx Asthma: Yes Hx COPD: Yes Hx Tuberculosis: No Hx Dementia: No Hx HIV: No - Surgical History Hx Coronary Stent: No Hx Open Heart Surgery: No Hx Pacemaker: No Hx Internal Defibrillator: No Hx Cholecystectomy: No Hx Appendectomy: No Hx Breast Surgery: No - Social History Smoking Status: Current Some Day Smoker - Medications Home Medications: Home Medications Medication Instructions Recorded Confirmed Last Taken Type Budesonide [Pulmicort Respules] 0.5 mg IH Q12HRT #60 nebu 10/22/18 03/23/19 Unknown Rx Tiotropium [Spiriva] 18 mcg IH QDAY #30 cap 10/22/18 03/23/19 Unknown Rx Loratadine 10 mg PO DAILY 03/23/19 03/23/19 Unknown History Montelukast Sodium 10 mg PO DAILY 03/23/19 03/23/19 Unknown History Pantoprazole 40 mg PO HS 03/23/19 03/23/19 Unknown History Potassium Chloride 10 meq PO DAILY 03/23/19 03/23/19 Unknown History hydroCHLOROthiazide [HCTZ] 12.5 mg PO DAILY 03/23/19 03/23/19 Unknown History Prednisone [predniSONE 10 mg 10 mg PO .TAPER #1 tab.ds.pk 03/28/19 Unknown Rx (6-Day Pack, 21 Tabs)] ALBUTEROL NEB's [Proventil 0.083% 2.5 mg IH TID PRN #1 box 07/02/20 Unknown Rx NEBS] Albuterol Mdi (or & Nicu Only) 2 puff IH QID PRN #1 inhalation 07/02/20 Unknown Rx [ProAir HFA Inhaler] ED Review of Systems ROS: Stated complaint: DIFF BREATHING Other details as noted in HPI Comment: All other systems reviewed and negative Constitutional: denies: chills, fever Eyes: denies: eye pain, vision change ENT: denies: ear pain, throat pain Respiratory: cough, shortness of breath, wheezing Cardiovascular: denies: palpitations, edema Gastrointestinal: denies: abdominal pain, vomiting Genitourinary: denies: dysuria, discharge Musculoskeletal: denies: back pain, arthralgia Skin: denies: rash, lesions Neurological: denies: headache, weakness Physical Exam - Physical Exam Physical Exam: GENERAL: The patient is well-developed well-nourished. HENT: Normocephalic. Atraumatic. Patient has moist mucous membranes. EYES: Extraocular motions are intact. NECK: Supple. Trachea is midline. CHEST/LUNGS: Mild to moderate wheezing throughout the chest. There is some tachypnea. No cough heard during examination. HEART/CARDIOVASCULAR: Regular. There is mild tachycardia. There is no murmur. ABDOMEN: Abdomen is soft, nontender. Patient has normal bowel sounds. SKIN: Skin is warm and dry. NEURO: The patient is awake, alert, and oriented. The patient is cooperative. The patient has no focal neurologic deficits. Normal speech. MUSCULOSKELETAL: There is no tenderness or deformity. There is no limitation range of motion. ED Medical Decision Making - Lab Data Result diagrams: 07/01/20 21:52 07/01/20 21:52 Lab Results 07/01/20 07/01/20 07/01/20 Range/Units 21:52 21:52 21:52 WBC 11.3 H (4.5-11.0) K/mm3 RBC 5.00 (3.65-5.03) M/mm3 Hgb 14.3 (10.1-14.3) gm/dl Hct 43.3 H (30.3-42.9) % MCV 87 (79-97) fl MCH 29 (28-32) pg MCHC 33 (30-34) % RDW 15.3 H (13.2-15.2) % Plt Count 296 (140-440) K/mm3 Lymph % (Auto) 13.8 (13.4-35.0) % [place] % (Auto) 6.4 (0.0-7.3) % Eos % (Auto) 1.7 (0.0-4.3) % Baso % (Auto) 0.5 (0.0-1.8) % Lymph # (Auto) 1.6 (1.2-5.4) K/mm3 [place] # (Auto) 0.7 (0.0-0.8) K/mm3 Eos # (Auto) 0.2 (0.0-0.4) K/mm3 Baso # (Auto) 0.1 (0.0-0.1) K/mm3 Seg Neutrophils % 77.6 H (40.0-70.0) % Seg Neutrophils # 8.8 H (1.8-7.7) K/mm3 PT 12.4 (12.2-14.9) Sec. INR 0.94 (0.87-1.13) APTT 24.3 (24.2-36.6) Sec. D-Dimer 484.57 H (0-234) ng/mlDDU Sodium 140 (137-145) mmol/L Potassium 3.8 (3.6-5.0) mmol/L Chloride 102.0 (98-107) mmol/L Carbon Dioxide 26 (22-30) mmol/L Anion Gap 16 mmol/L BUN 14 (7-17) mg/dL Creatinine 0.8 (0.6-1.2) mg/dL Estimated GFR > 60 ml/min BUN/Creatinine Ratio 18 % Glucose 126 H (65-100) mg/dL Calcium 9.7 (8.4-10.2) mg/dL Total Bilirubin 0.40 (0.1-1.2) mg/dL AST 38 (5-40) units/L ALT 19 (7-56) units/L Alkaline Phosphatase 99 (35-129) units/L Troponin T < 0.010 (0.00-0.029) ng/mL Total Protein 6.9 (6.3-8.2) g/dL Albumin 4.5 (3.9-5) g/dL Albumin/Globulin Ratio 1.9 % - EKG Data -: EKG Interpreted by Me EKG shows normal: sinus rhythm, axis, intervals, QRS complexes, ST-T waves ( Nonspecific ST-T waves) Rate: tachycardia (113 bpm) - EKG Data When compared to previous EKG there are: no significant change Interpretation: unchanged when compared t (03/18/19) - Radiology Data Radiology results: report reviewed, image reviewed interpreted by me: Chest x-ray shows hyperinflation of the lungs with flattening of the diaphragms. No pneumonia or pleural effusion seen. No widening to the mediastinum. No obvious osseous abnormalities. CTA CHEST WITH CONTRAST INDICATION / CLINICAL INFORMATION: SOB, elevated dimer. TECHNIQUE: Axial CT images were obtained through the chest after injection of 100 cc of Omnipaque 300 IV contrast. 3 plane MIP and/or 3D reconstructions were produced. All CT scans at this location are performed using CT dose reduction for ALARA by means of automated exposure control. COMPARISON: None available. FINDINGS: PULMONARY ARTERIES: No pulmonary emboli. THORACIC AORTA: Mild ath erosclerotic calcification without acute abnormality. HEART: No significant abnormality. CORONARY ARTERY CALCIFICATION: None. MEDIASTINUM / JONO: No significant abnormality. PLEURA: No pleural effusion. No pneumothorax. LUNGS: There is a 6 mm nodule in the right lung apex. There is mild bronchiectasis in the lower lobes. There is mild bullous disease in the upper lung zones. ADDITIONAL FINDINGS: None. UPPER ABDOMEN: No acute findings. SKELETAL STRUCTURES: No significant osseous abnormality. IMPRESSION: 1. No CT evidence for pulmonary embolism. 2. Single incidental pulmonary nodule(s) in the right upper lobe measuring 6 mm with solid characteristics. Recommendation according to Fleischner Society 2017 Guidelines: Low Risk Patient: CT at 6-12 months, then consider CT at 18-24 months; High Risk Patient: CT at 6-12 months, then CT at 18-24 months - Medical Decision Making This patient presents to the emergency department with some shortness of breath, wheezing, coughing that has been going on overall for about 3 weeks but has worsened over the past 4 to 5 days. On examination she has moderate bronchospasm with some tachypnea. Patient already received Solu-Medrol in route. She was given a extended breathing treatment with both albuterol and i pratropium, as well as IV magnesium. Upon reevaluation the patient is feeling improved and appears clinically improved. She no longer appears tachypneic. There is some tachycardia most likely secondary to the beta agonists. No hypoxia. Chest x-ray appears consistent with COPD/emphysema with hyper ventilation of the lungs, flattening of the diaphragms, but no obvious pneumonia, pleural effusio ns, no pneumothorax. The patient's labs were mostly unremarkable including CBC, metabolic panel and a negative troponin, but the patient did have an elevated endocervical D-dimer level. For this reason the patient had a CT angiography of the chest that did not show any pulmonary embolism, dissection, or any other acute process and shows an incidental finding of a single pulmonary nodule. Patient was reevaluated multiple times over multiple hours and is improved. She will be discharged home to follow-up with her primary care physician. She has enough steroids at home and will be given a prescription refill of her albuterol inhaler and nebulizer treatments. She will return to the emergency department with any worsening of her symptoms or with any acute distress. Critical Care Time: No Critical care attestation.: If time is entered above; I have spent that time in minutes in the direct care of this critically ill patient, excluding procedure time. ED Disposition Clinical Impression: COPD exacerbation, Pulmonary nodule Hypertension Qualifiers: Hypertension type: essential hypertension Qualified Code(s): I10 - Essential (primary) hypertension Disposition: - TO HOME OR SELFCARE Is pt being admited?: No Condition: Stable Instructions: Chronic Obstructive Pulmonary Disease Exacerbation, Hypertension, Adult, Chronic Obstructive Pulmonary Disease (ED), Hypertension (ED) Additional Instructions: Please follow-up with your primary care physician in the next few days. Try to stay away from foods that are high in salt and caffeinated products. Keep a blood pressure log. Take all medications as prescribed. Return to the emergency department with any worsening of your symptoms, new or concerning symptoms not addressed during this current emergency department visit, or with any acute distress. Please try and quit smoking. Prescriptions: Albuterol Mdi (or & Nicu Only) [ProAir HFA Inhaler] 2 puff IH QID PRN #1 inhalation PRN Reason: Shortness Of Breath ALBUTEROL NEB's [Proventil 0.083% NEBS] 2.5 mg IH TID PRN #1 box PRN Reason: Wheezing Referrals: PRIMARY CARE, [Primary Care Provider] - 2-3 Days Time of Disposition: 01:01
[2020-07-01] MEDS ORDERED: ALBUTEROL 2.5 MG/3 ML NEBU IH ONE ×2 (21:59→22:07)
[2020-07-01] MEDS ORDERED: IPRATROPIUM 0.02% NEBU 2.5 ML IH ONE ×2 (21:59→22:07)
--- NOTE | 2020-07-01 22:20 | XRay Report ---
CHEST 1 VIEW 07/01/2020 9:43 PM INDICATION / CLINICAL INFORMATION: SOB. COMPARISON: 03/23/2019. FINDINGS: SUPPORT DEVICES: None. HEART / MEDIASTINUM: Stable. LUNGS / PLEURA: No significant pulmonary or pleural abnormality. No pneumothorax. ADDITIONAL FINDINGS: No significant additional findings. IMPRESSION: No acute cardiopulmonary abnormality. No significant change from 03/23/2019. Signer Name: Eddie Webster MD Signed: 07/01/2020 10:16 PM Workstation Name: [id number]
[2020-07-01 22:22] LABS: Basophils # (Auto) 0.1 K/mm3 (0.0-0.1); Basophils % (Auto) 0.5 % (0.0-1.8); Eosinophils # (Auto) 0.2 K/mm3 (0.0-0.4); Eosinophils % (Auto) 1.7 % (0.0-4.3); Hematocrit 43.3 % (30.3-42.9); Hemoglobin 14.3 gm/dl (10.1-14.3); Lymphocytes # (Auto) 1.6 K/mm3 (1.2-5.4); Lymphocytes % (Auto) 13.8 % (13.4-35.0); Mean Corpuscular HGB Conc 33 % (30-34); Mean Corpuscular Volume 87 fl (79-97); Monocytes # (Auto) 0.7 K/mm3 (0.0-0.8); Monocytes % (Auto) 6.4 % (0.0-7.3); Platelet Count 296 K/mm3 (140-440); Red Cell Distribution Width 15.3 % (13.2-15.2)
[2020-07-01 22:26] LABS: Alanine Aminotransferase 19 units/L (7-56); Albumin 4.5 g/dL (3.9-5); BUN/Creatinine Ratio 18; Blood Urea Nitrogen 14 mg/dL (7-17); Calcium 9.7 mg/dL (8.4-10.2); Hemolysis Index 2
[2020-07-01 22:39] LABS: INR 0.94 (0.87-1.13)
[2020-07-01 22:40] LABS: Partial Thromboplastin Time 24.3 Sec. (24.2-36.6)
[2020-07-01] MEDS ORDERED: hydrALAZINE 20 MG/1 ML INJ IV ONE (22:42)
--- NOTE | 2020-07-02 00:23 | Cat Scan Report ---
CTA CHEST WITH CONTRAST INDICATION / CLINICAL INFORMATION: SOB, elevated dimer. TECHNIQUE: Axial CT images were obtained through the chest after injection of 100 cc of Omnipaque 300 IV contrast. 3 plane MIP and/or 3D reconstructions were produced. All CT scans at this location are performed using CT dose reduction for ALARA by means of automated exposure control. COMPARISON: None available. FINDINGS: PULMONARY ARTERIES: No pulmonary emboli. THORACIC AORTA: Mild atherosclerotic calcification without acute abnormality. HEART: No significant abnormality. CORONARY ARTERY CALCIFICATION: None. MEDIASTINUM / JONO: No significant abnormality. PLEURA: No pleural effusion. No pneumothorax. LUNGS: There is a 6 mm nodule in the right lung apex. There is mild bronchiectasis in the lower lobes . There is mild bullous disease in the upper lung zones. ADDITIONAL FINDINGS: None. UPPER ABDOMEN: No acute findings. SKELETAL STRUCTURES: No significant osseous abnormality. IMPRESSION: 1. No CT evidence for pulmonary embolism. 2. Single incidental pulmonary nodule(s) in the right upper lobe measuring 6 mm with solid characteri stics. Recommendation according to Fleischner Society 2017 Guidelines: Low Risk Patient: CT at 6-12 m [facility], then consider CT at 18-24 months; High Risk Patient: CT at 6-12 months, then CT at 18-24 month s Signer Name: Michele Parisi MD Signed: 07/02/2020 12:19 AM Workstation Name: [id number]
[2020-07-02] MEDS ORDERED: SODIUM CHLORIDE 0.9% 500 ML 500 ML IV ONE (00:36)
[2020-07-02 01:38] VITALS: BP 128/98
--- NOTE | 2020-07-02 10:38 | Electrocardiograph Report ---
[facility] Test Date: 2020-07-02 Test Time: 01:06:18 Pat Name: NASIR HOLDEN Department: Room: Gender: F Pocket Stitcher: CORTNEY : 1955 Requested By: COURTNEY TORRES Order Number: [id number] Reading MD: Wayne Foster Measurements Intervals Irwin Rate: 113 P: 86 MA: 141 QRS: 16 QRSD: 73 T: 75 QT: 364 QTc: 499 Interpretive Statements Sinus tachycardia Biatrial enlargement Minimal ST depression, diffuse leads No previous ECG available for comparison Electronically Signed On 07-02-2020 10:38:14 EDT by Wayne Foster
== END 2020-07-02 02:04 | disposition home or self-care (01) ==
LOC: ED 21:09
DX: J44.1 Chronic obstructive pulmonary disease with (acute) exacerbation (principal); R91.1 Solitary pulmonary nodule; I10 Essential (primary) hypertension; F17.200 Nicotine dependence, unspecified, uncomplicated; Z79.899 Other long term (current) drug therapy
CPT/HCPCS: 36415; 71045; 71275; 80053; 84484; 85025; 85379; 85610; 85730; 93005; 94640; 96365; 99285; J0360; J3475; J7040; Q9967; 94644

== ENCOUNTER 2020-07-04 18:57 | Inpatient (IN) | payer MEDICAID ==
[2020-07-04] MEDS ORDERED: ALBUTEROL 2.5 MG/3 ML NEBU IH ONE (19:43)
[2020-07-04] MEDS ORDERED: IPRATROPIUM 0.02% NEBU 2.5 ML IH ONE (19:43)
[2020-07-04] MEDS ORDERED: MAGNESIUM SULFATE 2 GM/50 ML BAG IV ONE (19:43)
[2020-07-04] MEDS ORDERED: ACETAMINOPHEN 325 MG TAB PO ONE (19:44)
[2020-07-04] MEDS ORDERED: amLODIPine 5 MG TAB PO ONE (19:44)
--- NOTE | 2020-07-04 19:45 | Emergency Department Report ---
ED General Adult HPI - General Chief complaint: Dyspnea/Respdistress Stated complaint: DIFFICULT BREATHING PUI?: No Time Seen by Provider: 07/04/20 19:29 Source: patient, EMS ( EMS documentation not available at time of chart dictation ), RN notes reviewed, old records reviewed Mode of arrival: Stretcher Limitations: Physical Limitation - History of Present Illness Initial comments: The patient was evaluated in the emergency department for symptoms described in the history of present illness. He/she was evaluated in the context of the global COVID-19 pandemic, which necessitated consideration that the patient might be at risk for infection with the virus that causes COVID-19. Institutional protocols and algorithms that pertain to the evaluation of patients at risk for COVID-19 are in a state of rapid change based on information released by regulatory bodies including the CDC and federal and state organizations. These policies and algorithms were followed during the patient's care in the emergency department. Please note that these policies, procedures and recommendations changed on a rapid basis. This is a 64-year-old female. Her past medical history includes COPD, chronic respiratory failure on home oxygen. She also has a history of hypertension. 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 She does not currently have a engineering illustrator, and she is waiting on her primary care doctor to refer her to a new engineering illustrator. She was seen in this department a few days ago for presumed COPD exacerbation. She was treated aggressively, had a CT scan of the chest which was negative for acute findings. She was discharged. The patient comes back today with a complaint of persistent shortness of breath, cough, wheezing and chest tightness. This is similar to prior COPD exacerbations. EMS gave nebulizer in the field, as well as steroids. Patient reports that she feels very dyspneic. She has a mild headache. She has not had any head trauma. She denies loss of taste or smell. She denies abdominal pain. She states she is not taking any blood pressure medication at this time, "because my primary care doctor took me off of it." The patient denies posterior leg pain or leg swelling -: Gradual, days(s) Location: head, chest Radiation: non-radiation Quality: aching Consistency: constant Improves with: medication, rest Worsens with: movement - Related Data Home Medications Medication Instructions Recorded Confirmed Last Taken Loratadine 10 mg PO DAILY 03/23/19 03/23/19 Unknown Montelukast Sodium 10 mg PO DAILY 03/23/19 03/23/19 Unknown Pantoprazole 40 mg PO HS 03/23/19 03/23/19 Unknown Potassium Chloride 10 meq PO DAILY 03/23/19 03/23/19 Unknown hydroCHLOROthiazide [HCTZ] 12.5 mg PO DAILY 03/23/19 03/23/19 Unknown Previous Rx's Medication Instructions Recorded Last Taken Type Budesonide [Pulmicort Respules] 0.5 mg IH Q12HRT #60 nebu 10/22/18 Unknown Rx Tiotropium [Spiriva] 18 mcg IH QDAY #30 cap 10/22/18 Unknown Rx Prednisone [predniSONE 10 mg 10 mg PO .TAPER #1 tab.ds.pk 03/28/19 Unknown Rx (6-Day Pack, 21 Tabs)] ALBUTEROL NEB's [Proventil 0.083% 2.5 mg IH TID PRN #1 box 07/02/20 Unknown Rx NEBS] Albuterol Mdi (or & Nicu Only) 2 puff IH QID PRN #1 inhalation 07/02/20 Unknown Rx [ProAir HFA Inhaler] Allergies Allergy/AdvReac Type Severity Reaction Status Date / Time No Known Allergies Allergy Unverified 06/07/13 12:53 ED Review of Systems ROS: Stated complaint: DIFFICULT BREATHING Other details as noted in HPI Constitutional: malaise, weakness. denies: fever Eyes: denies: eye discharge Respiratory: cough, shortness of breath, SOB with exertion, SOB at rest, wheezing Cardiovascular: chest pain Gastrointestinal: denies: abdominal pain Genitourinary: denies: dysuria Musculoskeletal: denies: back pain Neurological: weakness Psychiatric: anxiety Hematological/Lymphatic: denies: easy bleeding ED Past Medical Hx - Past Medical History Hx Hypertension: Yes Hx CVA: No Hx Heart Attack/AMI: No Hx Congestive Heart Failure: No Hx Diabetes: No Hx Deep Vein Thrombosis: No Hx Pulmonary Embolism: No Hx GERD: No Hx Liver Disease: No Hx Renal Disease: No Hx Sickle Cell Disease: No Hx Arthritis: No Hx Headaches / Migraines: No Hx Seizures: No Hx Kidney Stones: No Hx Psychiatric Treatment: No Hx Asthma: Yes Hx COPD: Yes Hx Tuberculosis: No Hx Dementia: No Hx HIV: No - Surgical History Hx Coronary Stent: No Hx Open Heart Surgery: No Hx Pacemaker: No Hx Internal Defibrillator: No Hx Cholecystectomy: No Hx Appendectomy: No Hx Breast Surgery: No - Social History Smoking Status: Former Smoker - Medications Home Medications: Home Medications Medication Instructions Recorded Confirmed Last Taken Type Budesonide [Pulmicort Respules] 0.5 mg IH Q12HRT #60 nebu 10/22/18 03/23/19 Unknown Rx Tiotropium [Spiriva] 18 mcg IH QDAY #30 cap 10/22/18 03/23/19 Unknown Rx Loratadine 10 mg PO DAILY 03/23/19 03/23/19 Unknown History Montelukast Sodium 10 mg PO DAILY 03/23/19 03/23/19 Unknown History Pantoprazole 40 mg PO HS 03/23/19 03/23/19 Unknown History Potassium Chloride 10 meq PO DAILY 03/23/19 03/23/19 Unknown History hydroCHLOROthiazide [HCTZ] 12.5 mg PO DAILY 03/23/19 03/23/19 Unknown History Prednisone [predniSONE 10 mg 10 mg PO .TAPER #1 tab.ds.pk 03/28/19 Unknown Rx (6-Day Pack, 21 Tabs)] ALBUTEROL NEB's [Proventil 0.083% 2.5 mg IH TID PRN #1 box 07/02/20 Unknown Rx NEBS] Albuterol Mdi (or & Nicu Only) 2 puff IH QID PRN #1 inhalation 07/02/20 Unknown Rx [ProAir HFA Inhaler] ED Physical Exam - General Limitations: Physical Limitation General appearance: alert, anxious, in distress - Head Head exam: Present: atraumatic, normocephalic - Eye Eye exam: Present: normal appearance, EOMI. Absent: nystagmus - ENT ENT exam: Present: normal exam, normal orophraynx, mucous membranes moist, normal external ear exam - Neck Neck exam: Present: normal inspection, full ROM. Absent: tenderness, meningismus - Respiratory Respiratory exam: Present: respiratory distress, accessory muscle use. Absent: wheezes, rhonchi, stridor - Cardiovascular Cardiovascular Exam: Present: normal rhythm, tachycardia, normal heart sounds. Absent: bradycardia, irregular rhythm, systolic murmur, diastolic murmur, rubs, gallop - GI/Abdominal GI/Abdominal exam: Present: soft. Absent: distended, tenderness, guarding, rebound, rigid, pulsatile mass - Extremities Exam Extremities exam: Present: normal inspection, full ROM, other (2+ pulses noted in the bilateral upper and lower extremities. There is no palpable cord. negative Homans sign. Muscular compartments are soft. The pelvis is stable.). Absent: pedal edema, calf tenderness - Back Exam Back exam: Present: normal inspection. Absent: tenderness, CVA tenderness (R), CVA tenderness (L), paraspinal tenderness, vertebral tenderness - Neurological Exam Neurological exam: Present: alert, other (No facial droop. Tongue midline. Extraocular movements intact bilaterally. Facial sensation intact to light touch in V1, V2, V3 distribution bilaterally. 5 and a 5 strength in 4 extremities. Sensation intact to light touch in 4 extremities.). Absent: motor sensory deficit - Psychiatric Psychiatric exam: Present: anxious - Skin Skin exam: Present: warm, dry, intact, normal color. Absent: rash ED Course Vital Signs 07/04/20 07/04/20 07/04/20 19:23 19:44 20:00 Temperature 97.9 F Pulse Rate 115 H 120 H Pulse Rate [ Bilateral] Respiratory 24 24 20 Rate Respiratory Rate [Bilateral ] Blood Pressure 230/115 O2 Sat by Pulse 95 94 Oximetry 07/04/20 07/04/20 07/04/20 20:28 20:30 21:00 Temperature Pulse Rate 106 H 107 H Pulse Rate [ 102 H Bilateral] Respiratory 23 22 Rate Respiratory 24 Rate [Bilateral ] Blood Pressure 171/118 171/118 O2 Sat by Pulse 99 99 Oximetry 07/04/20 07/04/20 07/04/20 21:10 21:20 21:30 Temperature Pulse Rate 111 H 119 H 122 H Pulse Rate [ Bilateral] Respiratory 25 H 30 H 31 H Rate Respiratory Rate [Bilateral ] Blood Pressure 171/118 171/118 171/118 O2 Sat by Pulse 99 99 99 Oximetry 07/04/20 07/04/20 07/04/20 21:40 21:50 22:00 Temperature Pulse Rate 123 H 123 H 120 H Pulse Rate [ Bilateral] Respiratory 26 H 27 H 23 Rate Respiratory Rate [Bilateral ] Blood Pressure 171/118 171/118 171/118 O2 Sat by Pulse 98 99 98 Oximetry 07/04/20 07/04/20 07/04/20 22:10 22:20 22:30 Temperature Pulse Rate 125 H 128 H 135 H Pulse Rate [ Bilateral] Respiratory 24 30 H 36 H Rate Respiratory Rate [Bilateral ] Blood Pressure 171/118 158/98 158/98 O2 Sat by Pulse 99 99 93 Oximetry 07/04/20 07/04/20 07/04/20 22:40 22:50 23:00 Temperature Pulse Rate 135 H 135 H 132 H Pulse Rate [ Bilateral] Respiratory 24 22 21 Rate Respiratory Rate [Bilateral ] Blood Pressure 162/108 174/117 174/117 O2 Sat by Pulse 91 91 94 Oximetry 07/04/20 07/04/20 23:10 23:20 Temperature Pulse Rate 128 H 125 H Pulse Rate [ Bilateral] Respiratory 20 23 Rate Respiratory Rate [Bilateral ] Blood Pressure 157/104 168/100 O2 Sat by Pulse 96 97 Oximetry - Reevaluation(s) Reevaluation #1: 07/04/20 21:08 Differential diagnosis, including but not limited to: Pneumonia, acute coronary syndrome, COPD exacerbation Assessment and plan: 64-year-old female, who is tachypneic, tachycardic, in moderate respiratory distress, requiring albuterol, Atrovent, already given steroids, receiving magnesium, arterial blood gas demonstrates acute on chronic hypoxemic respiratory failure. Patient was recently ruled out for pulmonary embolism. Patient has failed outpatient therapy, she endorses compliance with outpatient therapy. Meets criteria for admission and hospitalization. Has chronic hypertension, we will administer antihypertensive therapy. Patient requesting to be admitted, and she meets criteria for hospitalization and admission. We will discuss with the hospital physician to arrange admission. Reevaluation #2: 07/04/20 21:10 Blood pressure is improved Reevaluation #3: 07/04/20 21:20 Dr Presley to admit to [facility] ED Medical Decision Making - Lab Data Result diagrams: 07/04/20 19:47 07/04/20 19:47 Vital Signs 07/04/20 07/04/20 07/04/20 19:23 19:44 20:28 Temperature 97.9 F Pulse Rate 115 H Pulse Rate [ 102 H Bilateral] Respiratory 24 24 Rate Respiratory 24 Rate [Bilateral ] Blood Pressure 230/115 O2 Sat by Pulse 95 Oximetry Lab Results 07/04/20 07/04/20 07/04/20 Range/Units 19:47 19:47 19:47 WBC 14.5 H (4.5-11.0) K/mm3 RBC 4.95 (3.65-5.03) M/mm3 Hgb 14.3 (10.1-14.3) gm/dl Hct 42.5 (30.3-42.9) % MCV 86 (79-97) fl MCH 29 (28-32) pg MCHC 34 (30-34) % RDW 15.1 (13.2-15.2) % Plt Count 286 (140-440) K/mm3 Lymph % (Auto) 7.4 L (13.4-35.0) % [place] % (Auto) 2.9 (0.0-7.3) % Eos % (Auto) 1.5 (0.0-4.3) % Baso % (Auto) 0.2 (0.0-1.8) % Lymph # (Auto) 1.1 L (1.2-5.4) K/mm3 [place] # (Auto) 0.4 (0.0-0.8) K/mm3 Eos # (Auto) 0.2 (0.0-0.4) K/mm3 Baso # (Auto) 0.0 (0.0-0.1) K/mm3 Seg Neutrophils % 88.0 H (40.0-70.0) % Seg Neutrophils # 12.8 H (1.8-7.7) K/mm3 PT 12.2 (12.2-14.9) Sec. INR 0.92 (0.87-1.13) ABG pH (7.350-7.450) pH Units ABG pCO2 mm Hg ABG pO2 (80.0-90.0) mm Hg ABG HCO3 (20.0-26.0) mmol/L ABG O2 Saturation (95.0-99.0) % ABG O2 Content (0.0-44) ABG Base Excess (-2.0-3.0) mmol/L ABG Hemoglobin (12.0-16.0) gm/dl ABG Carboxyhemoglobin (0.0-5.0) % ABG Methemoglobin (0.0-1.5) % Oxyhemoglobin (95.0-99.0) % FiO2 % Sodium 139 (137-145) mmol/L Potassium 4.0 (3.6-5.0) mmol/L Chloride 104.8 (98-107) mmol/L Carbon Dioxide 22 (22-30) mmol/L Anion Gap 16 mmol/L BUN 13 (7-17) mg/dL Creatinine 0.8 (0.6-1.2) mg/dL Estimated GFR > 60 ml/min BUN/Creatinine Ratio 16 % Glucose 108 H (65-100) mg/dL Calcium 8.9 (8.4-10.2) mg/dL Magnesium (1.7-2.3) mg/dL Total Creatine Kinase (30-135) units/L Troponin T 0.017 (0.00-0.029) ng/mL 07/04/20 07/04/20 Range/Units 19:47 20:20 WBC (4.5-11.0) K/mm3 RBC (3.65-5.03) M/mm3 Hgb (10.1-14.3) gm/dl Hct (30.3-42.9) % MCV (79-97) fl MCH (28-32) pg MCHC (30-34) % RDW (13.2-15.2) % Plt Count (140-440) K/mm3 Lymph % (Auto) (13.4-35.0) % [place] % (Auto) (0.0-7.3) % Eos % (Auto) (0.0-4.3) % Baso % (Auto) (0.0-1.8) % Lymph # (Auto) (1.2-5.4) K/mm3 [place] # (Auto) (0.0-0.8) K/mm3 Eos # (Auto) (0.0-0.4) K/mm3 Baso # (Auto) (0.0-0.1) K/mm3 Seg Neutrophils % (40.0-70.0) % Seg Neutrophils # (1.8-7.7) K/mm3 PT (12.2-14.9) Sec. INR (0.87-1.13) ABG pH 7.384 (7.350-7.450) pH Units ABG pCO2 40.9 mm Hg ABG pO2 61.2 L (80.0-90.0) mm Hg ABG HCO3 23.9 (20.0-26.0) mmol/L ABG O2 Saturation 93.2 L (95.0-99.0) % ABG O2 Content 19.1 (0.0-44) ABG Base Excess -1.1 (-2.0-3.0) mmol/L ABG Hemoglobin 14.0 (12.0-16.0) gm/dl ABG Carboxyhemoglobin 1.2 (0.0-5.0) % ABG Methemoglobin 0.4 (0.0-1.5) % Oxyhemoglobin 91.7 L (95.0-99.0) % FiO2 32 % Sodium (137-145) mmol/L Potassium (3.6-5.0) mmol/L Chloride (98-107) mmol/L Carbon Dioxide (22-30) mmol/L Anion Gap mmol/L BUN (7-17) mg/dL Creatinine (0.6-1.2) mg/dL Estimated GFR ml/min BUN/Creatinine Ratio % Glucose (65-100) mg/dL Calcium (8.4-10.2) mg/dL Magnesium 2.20 (1.7-2.3) mg/dL Total Creatine Kinase 21 L (30-135) units/L Troponin T (0.00-0.029) ng/mL - EKG Data -: EKG Interpreted by Ok EKG shows normal: sinus rhythm Rate: tachycardia - EKG Data When compared to previous EKG there are: no significant change 07/04/20 21:05 EKG interpreted at 19: 55 Is unchanged from prior EKG from July 02, 2020 Sinus rhythm, tachycardia, 115 bpm. Normal axis, QTC is prolonged, motion artifact, atrial enlargement. This EKG is not a STEMI. This EKG is abnormal. - Radiology Data Radiology results: report reviewed, image reviewed CHEST 1 VIEW 07/04/2020 6:58 PM INDICATION / CLINICAL INFORMATION: Dyspnea. COMPARISON: 07/01/2020 FINDINGS: SUPPORT DEVICES: None. HEART / MEDIASTINUM: No significant abnormality. LUNGS / PLEURA: Chronic interstitial changes noted. No pneumothorax. ADDITIONAL FINDINGS: No significant additional findings. IMPRESSION: 1. No acute findings. Signer Name: Kolton Mckeon MD Signed: 07/04/2020 7:11 PM Workstation Name: [id number] CTA CHEST WITH CONTRAST INDICATION / CLINICAL INFORMATION: SOB, elevated dimer. TECHNIQUE: Axial CT images were obtained through the chest after injection of 100 cc of Omnipaque 300 IV contrast. 3 plane MIP and/or 3D reconstructions were produced. All CT scans at this location are performed using CT dose reduction for ALARA by means of automated exposure control. COMPARISON: None available. FINDINGS: PULMONARY ARTERIES: No pulmonary emboli. THORACIC AORTA: Mild atherosclerotic calcification without acute abnormality. HEART: No significant abnormality. CORONARY ARTERY CALCIFICATION: None. MEDIASTINUM / JONO: No significant abnormality. PLEURA: No pleural effusion. No pneumothorax. LUNGS: There is a 6 mm nodule in the right lung apex. There is mild bronchiectasis in the lower lobes. There is mild bullous disease in the upper lung zones. ADDITIONAL FINDINGS: None. UPPER ABDOMEN: No acute findings. SKELETAL STRUCTURES: No significant osseous abnormality. IMPRESSION: 1. No CT evidence for pulmonary embolism. 2. Single incidental pulmonary nodule(s) in the right upper lobe measuring 6 mm with solid characteristics. Recommendation according to Fleischner Society 2017 Guidelines: Low Risk Patient: CT at 6-12 months, then consider CT at 18-24 months; High Risk Patient: CT at 6-12 months, then CT at 18-24 months Signer Name: Michele Parisi MD Signed: 07/01/2020 11:19 PM Workstation Name: [id number] Critical Care Time: Yes Critical care time in (mins) excluding proc time.: 35 Critical care attestation.: If time is entered above; I have spent that time in minutes in the direct care of this critically ill patient, excluding procedure time. ED Disposition Clinical Impression: COPD exacerbation, Acute respiratory failure with hypoxia, Hypertension, Acute chest pain Disposition: OP ADMIT IP TO THIS HOSP Is pt being admited?: Yes Does the pt Need Aspirin: Yes Condition: Fair Heart Score - HEART Score History: Slightly suspicious EKG: Non-specific Age: 45-65 Risk factors: 1-2 risk factors Troponin: < normal limit HEART Score: 3 - EKG Read Time Time EKG Completed: 19:55 EKG Read Time: 19:55 - Critical Actions Critical Actions: 0-3 pts:0.9-1.7%risk of adverse cardiac event.Candidate for discharge
[2020-07-04 19:58] LABS: Basophils % (Auto) 0.2 % (0.0-1.8); Eosinophils # (Auto) 0.2 K/mm3 (0.0-0.4); Eosinophils % (Auto) 1.5 % (0.0-4.3); Hematocrit 42.5 % (30.3-42.9); Hemoglobin 14.3 gm/dl (10.1-14.3); Lymphocytes # (Auto) 1.1 K/mm3 (1.2-5.4); Lymphocytes % (Auto) 7.4 % (13.4-35.0); Mean Corpuscular HGB Conc 34 % (30-34); Mean Corpuscular Volume 86 fl (79-97); Monocytes # (Auto) 0.4 K/mm3 (0.0-0.8); Monocytes % (Auto) 2.9 % (0.0-7.3); Platelet Count 286 K/mm3 (140-440); Red Blood Count 4.95 M/mm3 (3.65-5.03); Red Cell Distribution Width 15.1 % (13.2-15.2)
[2020-07-04 20:08] LABS: INR 0.92 (0.87-1.13)
--- NOTE | 2020-07-04 20:15 | XRay Report ---
CHEST 1 VIEW 07/04/2020 6:58 PM INDICATION / CLINICAL INFORMATION: Dyspnea. COMPARISON: 07/01/2020 FINDINGS: SUPPORT DEVICES: None. HEART / MEDIASTINUM: No significant abnormality. LUNGS / PLEURA: Chronic interstitial changes noted. No pneumothorax. ADDITIONAL FINDINGS: No significant additional findings. IMPRESSION: 1. No acute findings. Signer Name: Kolton Mckeon MD Signed: 07/04/2020 8:11 PM Workstation Name: [id number]
[2020-07-04 20:19] LABS: BUN/Creatinine Ratio 16; Blood Urea Nitrogen 13 mg/dL (7-17); Calcium 8.9 mg/dL (8.4-10.2); Hemolysis Index 13
[2020-07-04 20:43] LABS: ABG Base Excess -1.1 mmol/L (-2.0-3.0); ABG HCO3 23.9 mmol/L (20.0-26.0); ABG PCO2 40.9 mm Hg; ABG PH 7.384 pH Units (7.350-7.450); ABG PO2 61.2 mm Hg (80.0-90.0)
[2020-07-04 20:46] LABS: ABG Methemoglobin 0.4 % (0.0-1.5); ABG Oxygen Saturation 93.2 % (95.0-99.0)
[2020-07-04] MEDS ORDERED: ASPIRIN 81 MG TAB CHEW PO ONE (21:10)
[2020-07-04] MEDS ORDERED: ALBUTEROL 8.5 GM MDI INHALATION IH PRN (21:31)
[2020-07-04] MEDS ORDERED: ALBUTEROL 2.5 MG/3 ML NEBU IH PRN ×2 (21:31→21:41)
--- NOTE | 2020-07-04 21:40 | History and Physical Report ---
History of Present Illness Date of examination: 07/04/20 Date of admission: 07/04/20 Chief complaint: Shortness of breath Respiratory distress History of present illness: 65 years old female with history of hypertension, COPD, chronic respiratory failure on home oxygen was brought to the emergency room because of shortness of breath at home and wheezing and chest tightness. Patient feels dyspneic. patient was given nebulizer in the field as well as steroid. Still patient complain of shortness of breath and coughing. Patient denies any pain fever chills or abdominal pain In the ER patient is found to have acute respiratory failure/COPD exacerbation. ABG shows pH is 7.384 PCO2 40.9 PO2 61.2 bicarb 23.9 O2 sat 93.2 She states she is not taking any blood pressure medication at this time, "because my primary care doctor took me off of it." Past History Past Medical History: COPD, hypertension Medications and Allergies Allergies Allergy/AdvReac Type Severity Reaction Status Date / Time No Known Allergies Allergy Unverified 06/07/13 12:53 Home Medications Medication Instructions Recorded Confirmed Last Taken Type Budesonide [Pulmicort Respules] 0.5 mg IH Q12HRT #60 nebu 10/22/18 03/23/19 Unknown Rx Tiotropium [Spiriva] 18 mcg IH QDAY #30 cap 10/22/18 03/23/19 Unknown Rx Loratadine 10 mg PO DAILY 03/23/19 03/23/19 Unknown History Montelukast Sodium 10 mg PO DAILY 03/23/19 03/23/19 Unknown History Pantoprazole 40 mg PO HS 03/23/19 03/23/19 Unknown History Potassium Chloride 10 meq PO DAILY 03/23/19 03/23/19 Unknown History hydroCHLOROthiazide [HCTZ] 12.5 mg PO DAILY 03/23/19 03/23/19 Unknown History Prednisone [predniSONE 10 mg 10 mg PO .TAPER #1 tab.ds.pk 03/28/19 Unknown Rx (6-Day Pack, 21 Tabs)] ALBUTEROL NEB's [Proventil 0.083% 2.5 mg IH TID PRN #1 box 07/02/20 Unknown Rx NEBS] Albuterol Mdi (or & Nicu Only) 2 puff IH QID PRN #1 inhalation 07/02/20 Unknown Rx [ProAir HFA Inhaler] Active Meds: Active Medications Albuterol (Albuterol 8.5 Gm Mdi Inhalation) 2 puff IH QID PRN PRN Reason: Shortness Of Breath Albuterol (Albuterol 2.5 Mg/3 Ml Nebu) 2.5 mg IH TID PRN PRN Reason: Wheezing Albuterol/Ipratropium (Ipratropium/Albuterol Sulfate 3 Ml Ampul.Neb) 1 ampul [facility] Q6HRT [facility] Azithromycin (Azithromycin 250 Mg Tab) 250 mg PO QDAY [facility]; Protocol Budesonide (Budesonide 0.5 Mg/2 Ml Nebu) 0.5 mg IH Q12HRT [facility] Hydrochlorothiazide (Hydrochlorothiazide 12.5 Mg Cap) 12.5 mg PO DAILY [facility] Levofloxacin/Dextrose (Levaquin 500mg/100ml) 500 mg in 100 mls @ 100 mls/hr IV ONCE ONE; Protocol Stop: 07/04/20 22:00 Last Admin: 07/04/20 21:31 Dose: 100 mls/hr Documented by: Methylprednisolone Sodium Succinate (Methylprednisolone Sod Succinate 40 Mg/1 Ml Inj) 40 mg IV Q6HR [facility] Miscellaneous Medication (Montelukast Sodium) 10 mg PO DAILY [facility] Miscellaneous Medication (Pantoprazole) 40 mg PO HS [facility] Tiotropium [place] (Tiotropium 18 Mcg Cap Inhalation) puff IH QDAY [facility] Review of Systems Respiratory: cough, cough with sputum, shortness of breath, dyspnea on exertion, wheezing Exam - Constitutional Vitals: Temp Pulse Resp BP Pulse Ox 97.9 F 107 H 22 171/118 99 07/04/20 19:23 07/04/20 21:00 07/04/20 21:00 07/04/20 21:00 07/04/20 21:00 General appearance: Present: no acute distress, well-nourished - EENT Eyes: Present: PERRL ENT: hearing intact, clear oral mucosa - Neck Neck: Present: supple, normal ROM - Respiratory Respiratory effort: labored Respiratory: bilateral: wheezing - Cardiovascular Heart Sounds: Present: S1 & S2. Absent: rub, click - Extremities Extremities: pulses symmetrical, No edema Peripheral Pulses: within normal limits - Abdominal General gastrointestinal: Present: soft, non-tender, non-distended, normal bowel sounds Female genitourinary: Present: normal - Integumentary Integumentary: Present: clear, warm, dry - Musculoskeletal Musculoskeletal: gait normal, strength equal bilaterally - Psychiatric Psychiatric: appropriate mood/affect, intact judgment & insight - Neurologic Neurologic: CNII-XII intact, moves all extremities HEART Score - HEART Score EKG: Non-specific Age: 45-65 Risk factors: 1-2 risk factors Troponin: Troponin T 0.017 ng/mL (0.00-0.029) 07/04/20 19:47 Troponin: < normal limit - Critical Actions Critical Actions: 0-3 pts:0.9-1.7%risk of adverse cardiac event.Candidate for discharge Results - Labs CBC & Chem 7: 07/04/20 19:47 07/04/20 19:47 Labs: Laboratory Last Values WBC 14.5 K/mm3 (4.5-11.0) H 07/04/20 19:47 RBC 4.95 M/mm3 (3.65-5.03) 07/04/20 19:47 Hgb 14.3 gm/dl (10.1-14.3) 07/04/20 19:47 Hct 42.5 % (30.3-42.9) 07/04/20 19:47 MCV 86 fl (79-97) 07/04/20 19:47 MCH 29 pg (28-32) 07/04/20 19:47 MCHC 34 % (30-34) 07/04/20 19:47 RDW 15.1 % (13.2-15.2) 07/04/20 19:47 Plt Count 286 K/mm3 (140-440) 07/04/20 19:47 Lymph % (Auto) 7.4 % (13.4-35.0) L 07/04/20 19:47 [place] % (Auto) 2.9 % (0.0-7.3) 07/04/20 19:47 Eos % (Auto) 1.5 % (0.0-4.3) 07/04/20 19:47 Baso % (Auto) 0.2 % (0.0-1.8) 07/04/20 19:47 Lymph # (Auto) 1.1 K/mm3 (1.2-5.4) L 07/04/20 19:47 [place] # (Auto) 0.4 K/mm3 (0.0-0.8) 07/04/20 19:47 Eos # (Auto) 0.2 K/mm3 (0.0-0.4) 07/04/20 19:47 Baso # (Auto) 0.0 K/mm3 (0.0-0.1) 07/04/20 19:47 Seg Neutrophils % 88.0 % (40.0-70.0) H 07/04/20 19:47 Seg Neutrophils # 12.8 K/mm3 (1.8-7.7) H 07/04/20 19:47 PT 12.2 Sec. (12.2-14.9) 07/04/20 19:47 INR 0.92 (0.87-1.13) 07/04/20 19:47 ABG pH 7.384 pH Units (7.350-7.450) 07/04/20 20:20 ABG pCO2 40.9 mm Hg 07/04/20 20:20 ABG pO2 61.2 mm Hg (80.0-90.0) L 07/04/20 20:20 ABG HCO3 23.9 mmol/L (20.0-26.0) 07/04/20 20:20 ABG O2 Saturation 93.2 % (95.0-99.0) L 07/04/20 20:20 ABG O2 Content 19.1 (0.0-44) 07/04/20 20:20 ABG Base Excess -1.1 mmol/L (-2.0-3.0) 07/04/20 20:20 ABG Hemoglobin 14.0 gm/dl (12.0-16.0) 07/04/20 20:20 ABG Carboxyhemoglobin 1.2 % (0.0-5.0) 07/04/20 20:20 ABG Methemoglobin 0.4 % (0.0-1.5) 07/04/20 20:20 Oxyhemoglobin 91.7 % (95.0-99.0) L 07/04/20 20:20 FiO2 32 % 07/04/20 20:20 Sodium 139 mmol/L (137-145) 07/04/20 19:47 Potassium 4.0 mmol/L (3.6-5.0) 07/04/20 19:47 Chloride 104.8 mmol/L (98-107) 07/04/20 19:47 Carbon Dioxide 22 mmol/L (22-30) 07/04/20 19:47 Anion Gap 16 mmol/L 07/04/20 19:47 BUN 13 mg/dL (7-17) 07/04/20 19:47 Creatinine 0.8 mg/dL (0.6-1.2) 07/04/20 19:47 Estimated GFR > 60 ml/min 07/04/20 19:47 BUN/Creatinine Ratio 16 % 07/04/20 19:47 Glucose 108 mg/dL (65-100) H 07/04/20 19:47 Calcium 8.9 mg/dL (8.4-10.2) 07/04/20 19:47 Magnesium 2.20 mg/dL (1.7-2.3) 07/04/20 19:47 Total Creatine Kinase 21 units/L (30-135) L 07/04/20 19:47 Troponin T 0.017 ng/mL (0.00-0.029) 07/04/20 19:47 - Imaging and Cardiology Chest x-ray: image reviewed Assessment and Plan VTE prophylaxis?: Chemical Plan of care discussed with patient/family: Yes - Patient Problems (1) Acute respiratory failure with hypoxia Current Visit: Yes Status: Acute Plan to address problem: Admit the patient to the medical telemetry. Oxygen per nasal cannula 3 L/min. DuoNeb by nebulizer every 4 hours as needed. Solu-Medrol 40 mg IV every 6 hours as needed. Singular 10 mg p.o. daily. We do the blood cultures sputum culture Please consult pulmonary if needed. Recheck CBC BMP in the morning. (2) COPD exacerbation Current Visit: Yes Status: Acute Plan to address problem: Oxygen per nasal cannula 3 L/min. DuoNeb by nebulizer every 4 hours as ne eded. Solu-Medrol 40 mg IV every 6 hours as needed. Singular 10 mg p.o. daily. We do the blood cultures sputum culture Please consult pulmonary if needed. Recheck CBC BMP in the morning. (3) Hypertension Current Visit: Yes Status: Chronic Qualifiers: Plan to address problem: Hydrochlorothiazide 12.5 mg p.o. daily. Amlodipine 5 mg p.o. daily. We also put the patient on hydralazine 10 mg IV every 6 hours as needed. We will monitor the blood pressure closely (4) DVT prophylaxis Current Visit: No Status: Acute Plan to address problem: Heparin 5000 subcu every 8 hours for DVT prophylaxis. Protonix 40 mg p.o. daily for GI prophylaxis. Patient is a full code
[2020-07-04] MEDS ORDERED: hydrALAZINE 20 MG/1 ML INJ IV PRN (21:45)
[2020-07-04] MEDS ORDERED: PANTOPRAZOLE 40 MG TAB PO SCH (22:00)
[2020-07-04] MEDS ORDERED: NON-FORMULARY EACH (Pantoprazole 40 MG) PO SCH (22:00)
[2020-07-04] MEDS: HEPARIN 5,000 UNIT/1 ML VIAL SUB-Q SCH (23:09)
[2020-07-05] MEDS: methylPREDNISolone Sod Succinate 40 MG/1 ML INJ IV SCH ×4 (00:37→19:17)
[2020-07-05] MEDS: IPRATROPIUM/ALBUTEROL SULFATE 3 ML AMPUL.NEB IH SCH ×4 (02:07→19:12)
[2020-07-05] MEDS: HEPARIN 5,000 UNIT/1 ML VIAL SUB-Q SCH ×3 (05:24→21:27)
[2020-07-05] MEDS: BUDESONIDE 0.5 MG/2 ML NEBU IH SCH ×2 (07:35→19:12)
[2020-07-05] MEDS ORDERED: NON-FORMULARY EACH (Montelukast Sodium 10 MG) PO SCH (10:00)
[2020-07-05] MEDS ORDERED: TIOTROPIUM 18 MCG CAP INHALATION IH SCH (10:00)
[2020-07-05] MEDS: PANTOPRAZOLE 40 MG TAB PO SCH (11:07)
--- NOTE | 2020-07-05 11:31 | Electrocardiograph Report ---
[facility] Test Date: 2020-07-04 Test Time: 19:55:29 Pat Name: NASIR HOLDEN Department: Room: A374 1 Gender: F Guest Experience Manager: : 1955 Requested By: ZARA DANIELSON Order Number: [id number] Reading MD: Ashish Anne Measurements Intervals Filer Rate: 115 P: 83 NV: 157 QRS: 57 QRSD: 75 T: 67 QT: 345 QTc: 478 Interpretive Statements Sinus tachycardia Biatrial enlargement Left ventricular hypertrophy ST depression, consider ischemia, lateral lds Compared to ECG 07/02/2020 01:06:18 Left ventricular hypertrophy now present Possible ischemia now present ST (T wave) deviation still present Electronically Signed On 07-05-2020 11:31:08 EDT by Ashish Anne
[2020-07-05] MEDS: AZITHROMYCIN 250 MG TAB PO SCH (11:52)
[2020-07-05] MEDS: MONTELUKAST 10 MG TAB PO SCH (11:52)
[2020-07-05] MEDS: hydroCHLOROthiazide 12.5 MG CAP PO SCH (11:53)
--- NOTE | 2020-07-05 17:17 | Progress Note ---
Assessment and Plan Assessment and plan: Assessement: 64yo female who presents with COPD exacerbation (1) Acute respiratory failure with hypoxia Current Visit: Yes Status: Acute Plan to address problem: Supplemental O2, 3L home breathing treatments PRN (2) COPD exacerbation Current Visit: Yes Status: Acute Plan to address problem: Oxygen per nasal cannula 3 L/min. DuoNeb by nebulizer every 4 hours as needed. Solu-Medrol 40 mg IV every 6 hours as needed. Singular 10 mg p.o. daily. Azithromycin (3) Hypertension Current Visit: Yes Status: Chronic Qualifiers: Plan to address problem: Hydrochlorothiazide 12.5 mg p.o. daily. Amlodipine 5 mg p.o. daily. hydralazine 10 mg IV every 6 hours as needed. (4) DVT prophylaxis Current Visit: No Status: Acute Plan to address problem: Heparin 5000 subcu every 8 hours for DVT prophylaxis. Protonix 40 mg p.o. daily for GI prophylaxis. Patient is a full code DISPOSITION: continue treatment for COPD exacerbation. Working with CM to make sure pt has oxygen at home, plan for DC on Wednesday History Interval history: 07/05: pt with SOB, pt needs oxygen at home. no n/v Hospitalist Physical - Physical exam Narrative exam: General appearance: Present: thin, no acute distress, well-nourished EENT: PERRL, EOM intact, hearing intact, clear oral mucosa, dentition poor Neck: Present: supple, normal ROM Respiratory: bilateral: NC O2, CTA, negative: rales, rhonchi, wheezing Cardiovascular: Rhythm: regular Heart Sounds: Present: S1 & S2. Absent: gallop, rub Extremities: no ischemia, No edema, normal temperature, normal color, Full ROM Abdominal: soft, non-tender, non-distended, normal bowel sounds Integumentary: Present: clear, warm, dry Psychiatric: appropriate mood/affect, intact judgment & insight Neurologic: CNII-XII intact, moves all extremities - Constitutional Vitals: Temp Pulse Resp BP Pulse Ox 98.9 F 101 H 18 126/83 96 07/05/20 05:06 07/05/20 13:18 07/05/20 13:18 07/05/20 05:06 07/05/20 07:35 General appearance: Present: no acute distress, well-nourished HEART Score - HEART Score EKG: Non-specific Age: 45-65 Risk factors: 1-2 risk factors Troponin: Troponin T 0.014 ng/mL (0.00-0.029) 07/04/20 21:19 Troponin: < normal limit - Critical Actions Critical Actions: 0-3 pts:0.9-1.7%risk of adverse cardiac event.Candidate for discharge Results - Labs CBC & Chem 7: 07/04/20 19:47 07/04/20 19:47 Labs: Laboratory Last Values WBC 14.5 K/mm3 (4.5-11.0) H 07/04/20 19:47 RBC 4.95 M/mm3 (3.65-5.03) 07/04/20 19:47 Hgb 14.3 gm/dl (10.1-14.3) 07/04/20 19:47 Hct 42.5 % (30.3-42.9) 07/04/20 19:47 MCV 86 fl (79-97) 07/04/20 19:47 MCH 29 pg (28-32) 07/04/20 19:47 MCHC 34 % (30-34) 07/04/20 19:47 RDW 15.1 % (13.2-15.2) 07/04/20 19:47 Plt Count 286 K/mm3 (140-440) 07/04/20 19:47 Lymph % (Auto) 7.4 % (13.4-35.0) L 07/04/20 19:47 [place] % (Auto) 2.9 % (0.0-7.3) 07/04/20 19:47 Eos % (Auto) 1.5 % (0.0-4.3) 07/04/20 19:47 Baso % (Auto) 0.2 % (0.0-1.8) 07/04/20 19:47 Lymph # (Auto) 1.1 K/mm3 (1.2-5.4) L 07/04/20 19:47 [place] # (Auto) 0.4 K/mm3 (0.0-0.8) 07/04/20 19:47 Eos # (Auto) 0.2 K/mm3 (0.0-0.4) 07/04/20 19:47 Baso # (Auto) 0.0 K/mm3 (0.0-0.1) 07/04/20 19:47 Seg Neutrophils % 88.0 % (40.0-70.0) H 07/04/20 19:47 Seg Neutrophils # 12.8 K/mm3 (1.8-7.7) H 07/04/20 19:47 PT 12.2 Sec. (12.2-14.9) 07/04/20 19:47 INR 0.92 (0.87-1.13) 07/04/20 19:47 ABG pH 7.384 pH Units (7.350-7.450) 07/04/20 20:20 ABG pCO2 40.9 mm Hg 07/04/20 20:20 ABG pO2 61.2 mm Hg (80.0-90.0) L 07/04/20 20:20 ABG HCO3 23.9 mmol/L (20.0-26.0) 07/04/20 20:20 ABG O2 Saturation 93.2 % (95.0-99.0) L 07/04/20 20:20 ABG O2 Content 19.1 (0.0-44) 07/04/20 20:20 ABG Base Excess -1.1 mmol/L (-2.0-3.0) 07/04/20 20:20 ABG Hemoglobin 14.0 gm/dl (12.0-16.0) 07/04/20 20:20 ABG Carboxyhemoglobin 1.2 % (0.0-5.0) 07/04/20 20:20 ABG Methemoglobin 0.4 % (0.0-1.5) 07/04/20 20:20 Oxyhemoglobin 91.7 % (95.0-99.0) L 07/04/20 20:20 FiO2 32 % 07/04/20 20:20 Sodium 139 mmol/L (137-145) 07/04/20 19:47 Potassium 4.0 mmol/L (3.6-5.0) 07/04/20 19:47 Chloride 104.8 mmol/L (98-107) 07/04/20 19:47 Carbon Dioxide 22 mmol/L (22-30) 07/04/20 19:47 Anion Gap 16 mmol/L 07/04/20 19:47 BUN 13 mg/dL (7-17) 07/04/20 19:47 Creatinine 0.8 mg/dL (0.6-1.2) 07/04/20 19:47 Estimated GFR > 60 ml/min 07/04/20 19:47 BUN/Creatinine Ratio 16 % 07/04/20 19:47 Glucose 108 mg/dL (65-100) H 07/04/20 19:47 Lactic Acid 0.70 mmol/L (0.7-2.0) 07/04/20 21:19 Calcium 8.9 mg/dL (8.4-10.2) 07/04/20 19:47 Magnesium 2.20 mg/dL (1.7-2.3) 07/04/20 19:47 Total Creatine Kinase 21 units/L (30-135) L 07/04/20 19:47 Troponin T 0.014 ng/mL (0.00-0.029) 07/04/20 21:19 Microbiology: Microbiology 07/05/20 Unknown Peripheral/Venous Blood Culture - Preliminary Culture in Progress 07/05/20 Unknown Peripheral/Venous Blood Culture - Preliminary Culture in Progress Hoyt/IV: Voiding Method Incontinent Active Medications - Current Medications Current Medications: Generic Name Dose Route Start Last Admin Trade Name Freq PRN Reason Stop Dose Admin Albuterol 2.5 mg 07/04/20 21:41 Albuterol 2.5 Mg/3 Ml Nebu IH Q4HRT PRN Shortness Of Breath Albuterol/Ipratropium 1 ampul 07/05/20 02:00 07/05/20 13:18 Ipratropium/Albuterol Sulfate 3 Ml Ampul.Neb IH 1 ampul Q6HRT KIMBERLY Administration Azithromycin 250 mg 07/05/20 10:00 07/05/20 11:52 Azithromycin 250 Mg Tab PO 07/09/20 10:01 250 mg QDAY KIMBERLY Administration Protocol Budesonide 0.5 mg 07/05/20 08:00 07/05/20 07:35 Budesonide 0.5 Mg/2 Ml Nebu IH 0.5 mg Q12HRT KIMBERLY Administration Heparin Sodium (Porcine) 5,000 unit 07/04/20 22:00 07/05/20 16:19 Heparin 5,000 Unit/1 Ml Vial SUB-Q 5,000 unit Q8HR KIMBERLY Administration Hydralazine HCl 10 mg 07/04/20 21:45 07/05/20 00:38 Hydralazine 20 Mg/1 Ml Inj IV 10 mg Q6H PRN Administration htn Hydrochlorothiazide 12.5 mg 07/05/20 10:00 07/05/20 11:53 Hydrochlorothiazide 12.5 Mg Cap PO 12.5 mg DAILY KIMBERLY Administration Methylprednisolone Sodium Succinate 40 mg 07/05/20 00:00 07/05/20 11:52 Methylprednisolone Sod Succinate 40 Mg/1 Ml Inj IV 40 mg Q6HR KIMBERLY Administration Montelukast Sodium 10 mg 07/05/20 10:00 07/05/20 11:52 Montelukast 10 Mg Tab PO 10 mg DAILY KIMBERLY Administration Pantoprazole Sodium 40 mg 07/05/20 07:30 07/05/20 11:07 Pantoprazole 40 Mg Tab PO 40 mg QDAC KIMBERLY Administration Nutrition/Malnutrition Assess - Dietary Evaluation Nutrition/Malnutrition Findings: Nutrition Notes Start: 07/05/20 10:29 Freq: Status: Active Protocol: Document 07/05/20 10:29 (Rec: 07/05/20 10:36 [email or web address]) Nutrition Notes Need for Assessment generated from: Low BMI Initial or Follow up Assessment Current Diagnosis COPD,Hypertension,Respiratory Failure Current Diet No diet Labs/Tests Reviewed Pertinent Medications Reviewed Height 5 ft 1 in Weight 42.2 kg [place] Body Weight (kg) 47.72 BMI 17.6 Intake Prior to Admission Fair Weight Status Underweight Subjective/Other Information Screen for low BMI. Pt reports wt loss some time ago but unsure how much. She says it is very hard for her to gain weight. She states she eats a lot of food but it doesn't help. Pt open to ONS but scared it will cause diarrhea- will follow. Pt has no teeth and would like cynthia bañuelos MD verbally okay'ed to order. RN brought pt meal tray. GI Symptoms None Difficulty In Chewing Minimum of two criteria Yes Body Fat Depletion Mild depletion (non-severe) Muscle Mass Mild Depletion (non-severe) #1 Nutrition Diagnosis Malnutrition Etiology chronic disease As Evidenced by Signs and Symptoms pt with muscle and fat loss Is patient on ventilator? No Is Patient Ambulatory and/or Out of Bed No REE-([facility]-confined to bed) 1108.692 Kcal/Kg value to use for calculation 34 Approximate Energy Requirements Using 1435 kcal/Kg Calculation Used for Recommendations Kcal/kg Additional Notes Protein: 51-63g (1.2-1.5 g/kg) Fluid: 1 ml/kcal Nutrition Intervention Change Diet Order: Mechanical soft when able Add Supplement/Snack (indicate name/kcal Ensure [place] BID /protein ) Provides kCal: 700 Provides Protein (gm) 40 Goal #1 Meet at least 75% of protein and energy needs via PO and ONS intakes Anticipated Discharge Needs: [facility] soft Follow-Up By: 07/09/20 Additional Comments FU for intakes and ONS tolerance
[2020-07-05] MEDS: ACETAMINOPHEN 325 MG TAB PO PRN (22:41)
[2020-07-06] MEDS: methylPREDNISolone Sod Succinate 40 MG/1 ML INJ IV SCH ×2 (01:17→05:19)
[2020-07-06] MEDS: IPRATROPIUM/ALBUTEROL SULFATE 3 ML AMPUL.NEB IH SCH ×4 (02:19→19:03)
[2020-07-06 05:09] LABS: Hematocrit 37.7 % (30.3-42.9); Hemoglobin 12.4 gm/dl (10.1-14.3); Mean Corpuscular HGB Conc 33 % (30-34); Mean Corpuscular Volume 87 fl (79-97); Platelet Count 306 K/mm3 (140-440); Red Blood Count 4.36 M/mm3 (3.65-5.03); Red Cell Distribution Width 15.1 % (13.2-15.2)
[2020-07-06] MEDS: HEPARIN 5,000 UNIT/1 ML VIAL SUB-Q SCH ×3 (05:21→22:07)
[2020-07-06] MEDS: BUDESONIDE 0.5 MG/2 ML NEBU IH SCH ×2 (08:12→19:03)
[2020-07-06] MEDS: PANTOPRAZOLE 40 MG TAB PO SCH (08:19)
[2020-07-06] MEDS: AZITHROMYCIN 250 MG TAB PO SCH (09:54)
[2020-07-06] MEDS: predniSONE 20 MG TAB PO SCH ×2 (09:54→22:10)
[2020-07-06] MEDS: hydroCHLOROthiazide 12.5 MG CAP PO SCH (09:54)
[2020-07-06] MEDS: MONTELUKAST 10 MG TAB PO SCH (09:54)
--- NOTE | 2020-07-06 12:35 | Progress Note ---
Assessment and Plan Assessment and plan: Assessement: 64yo female who presents with COPD exacerbation (1) Acute respiratory failure with hypoxia Current Visit: Yes Status: Acute Plan to address problem: Supplemental O2, 3L home breathing treatments PRN CM working on getting O2 for patient (2) COPD exacerbation Current Visit: Yes Status: Acute Plan to address problem: Oxygen per nasal cannula 3 L/min. DuoNeb by nebulizer every 4 hours as needed. Singular 10 mg p.o. daily. Prednisone 40 mg BID daily Azithromycin ABX (3) Hypertension Current Visit: Yes Status: Chronic Qualifiers: Plan to address problem: Hydrochlorothiazide 12.5 mg p.o. daily. Amlodipine 5 mg p.o. daily. hydralazine 10 mg IV every 6 hours as needed. (4) DVT prophylaxis Current Visit: No Status: Acute Plan to address problem: Heparin 5000 subcu every 8 hours for DVT prophylaxis. Protonix 40 mg p.o. daily for GI prophylaxis. Patient is a full code DISPOSITION: continue treatment for COPD exacerbation. Working with CM to make sure pt has oxygen at home, plan for DC on Wednesday History Interval history: 07/05: pt with SOB, pt needs oxygen at home. no n/v 07/06 pt w/o complaint, breathing improving, no cp Hospitalist Physical - Physical exam Narrative exam: General appearance: Present: thin, no acute distress, well-nourished EENT: PERRL, EOM intact, hearing intact, clear oral mucosa, dentition poor Neck: Present: supple, normal ROM Respiratory: bilateral: NC O2, CTA, negative: rales, rhonchi, wheezing Cardiovascular: Rhythm: regular Heart Sounds: Present: S1 & S2. Absent: gallop, rub Extremities: no ischemia, No edema, normal temperature, normal color, Full ROM Abdominal: soft, non-tender, non-distended, normal bowel sounds Integumentary: Present: clear, warm, dry Psychiatric: appropriate mood/affect, intact judgment & insight Neurologic: CNII-XII intact, moves all extremities - Constitutional Vitals: Temp Pulse Resp BP Pulse Ox 98.6 F 105 H 20 117/75 97 07/05/20 20:35 07/06/20 08:39 07/06/20 08:39 07/05/20 20:37 07/06/20 08:40 General appearance: Present: no acute distress, well-nourished HEART Score - HEART Score EKG: Non-specific Age: 45-65 Risk factors: 1-2 risk factors Troponin: Troponin T 0.014 ng/mL (0.00-0.029) 07/04/20 21:19 Troponin: < normal limit - Critical Actions Critical Actions: 0-3 pts:0.9-1.7%risk of adverse cardiac event.Candidate for discharge Results - Labs CBC & Chem 7: 07/06/20 04:22 07/04/20 19:47 Labs: Laboratory Last Values WBC 12.0 K/mm3 (4.5-11.0) H 07/06/20 04:22 RBC 4.36 M/mm3 (3.65-5.03) 07/06/20 04:22 Hgb 12.4 gm/dl (10.1-14.3) 07/06/20 04:22 Hct 37.7 % (30.3-42.9) 07/06/20 04:22 MCV 87 fl (79-97) 07/06/20 04:22 MCH 29 pg (28-32) 07/06/20 04:22 MCHC 33 % (30-34) 07/06/20 04:22 RDW 15.1 % (13.2-15.2) 07/06/20 04:22 Plt Count 306 K/mm3 (140-440) 07/06/20 04:22 Lymph % (Auto) 7.4 % (13.4-35.0) L 07/04/20 19:47 [place] % (Auto) 2.9 % (0.0-7.3) 07/04/20 19:47 Eos % (Auto) 1.5 % (0.0-4.3) 07/04/20 19:47 Baso % (Auto) 0.2 % (0.0-1.8) 07/04/20 19:47 Lymph # (Auto) 1.1 K/mm3 (1.2-5.4) L 07/04/20 19:47 [place] # (Auto) 0.4 K/mm3 (0.0-0.8) 07/04/20 19:47 Eos # (Auto) 0.2 K/mm3 (0.0-0.4) 07/04/20 19:47 Baso # (Auto) 0.0 K/mm3 (0.0-0.1) 07/04/20 19:47 Seg Neutrophils % 88.0 % (40.0-70.0) H 07/04/20 19:47 Seg Neutrophils # 12.8 K/mm3 (1.8-7.7) H 07/04/20 19:47 PT 12.2 Sec. (12.2-14.9) 07/04/20 19:47 INR 0.92 (0.87-1.13) 07/04/20 19:47 ABG pH 7.384 pH Units (7.350-7.450) 07/04/20 20:20 ABG pCO2 40.9 mm Hg 07/04/20 20:20 ABG pO2 61.2 mm Hg (80.0-90.0) L 07/04/20 20:20 ABG HCO3 23.9 mmol/L (20.0-26.0) 07/04/20 20:20 ABG O2 Saturation 93.2 % (95.0-99.0) L 07/04/20 20:20 ABG O2 Content 19.1 (0.0-44) 07/04/20 20:20 ABG Base Excess -1.1 mmol/L (-2.0-3.0) 07/04/20 20:20 ABG Hemoglobin 14.0 gm/dl (12.0-16.0) 07/04/20 20:20 ABG Carboxyhemoglobin 1.2 % (0.0-5.0) 07/04/20 20:20 ABG Methemoglobin 0.4 % (0.0-1.5) 07/04/20 20:20 Oxyhemoglobin 91.7 % (95.0-99.0) L 07/04/20 20:20 FiO2 32 % 07/04/20 20:20 Sodium 139 mmol/L (137-145) 07/04/20 19:47 Potassium 4.0 mmol/L (3.6-5.0) 07/04/20 19:47 Chloride 104.8 mmol/L (98-107) 07/04/20 19:47 Carbon Dioxide 22 mmol/L (22-30) 07/04/20 19:47 Anion Gap 16 mmol/L 07/04/20 19:47 BUN 13 mg/dL (7-17) 07/04/20 19:47 Creatinine 0.8 mg/dL (0.6-1.2) 07/04/20 19:47 Estimated GFR > 60 ml/min 07/04/20 19:47 BUN/Creatinine Ratio 16 % 07/04/20 19:47 Glucose 108 mg/dL (65-100) H 07/04/20 19:47 Lactic Acid 0.70 mmol/L (0.7-2.0) 07/04/20 21:19 Calcium 8.9 mg/dL (8.4-10.2) 07/04/20 19:47 Magnesium 2.20 mg/dL (1.7-2.3) 07/04/20 19:47 Total Creatine Kinase 21 units/L (30-135) L 07/04/20 19:47 Troponin T 0.014 ng/mL (0.00-0.029) 07/04/20 21:19 Microbiology: Microbiology 07/05/20 Unknown Peripheral/Venous Blood Culture - Preliminary NO GROWTH AFTER 24 HOURS 07/05/20 Unknown Peripheral/Venous Blood Culture - Preliminary NO GROWTH AFTER 24 HOURS Hoyt/IV: Voiding Method Toilet Active Medications - Current Medications Current Medications: Generic Name Dose Route Start Last Admin Trade Name Freq PRN Reason Stop Dose Admin Acetaminophen 650 mg 07/05/20 22:23 07/05/20 22:41 Acetaminophen 325 Mg Tab PO 650 mg Q4H PRN Administration Pain, Mild (1-3) Albuterol 2.5 mg 07/04/20 21:41 Albuterol 2.5 Mg/3 Ml Nebu IH Q4HRT PRN Shortness Of Breath Albuterol/Ipratropium 1 ampul 07/05/20 02:00 07/06/20 08:12 Ipratropium/Albuterol Sulfate 3 Ml Ampul.Neb IH 1 ampul Q6HRT KIMBERLY Administration Azithromycin 250 mg 07/05/20 10:00 07/06/20 09:54 Azithromycin 250 Mg Tab PO 07/09/20 10:01 250 mg QDAY KIMBERLY Administration Protocol Budesonide 0.5 mg 07/05/20 08:00 07/06/20 08:12 Budesonide 0.5 Mg/2 Ml Nebu IH 0.5 mg Q12HRT KIMBERLY Administration Heparin Sodium (Porcine) 5,000 unit 07/04/20 22:00 07/06/20 05:21 Heparin 5,000 Unit/1 Ml Vial SUB-Q 5,000 unit Q8HR KIMBERLY Administration Hydralazine HCl 10 mg 07/04/20 21:45 07/05/20 00:38 Hydralazine 20 Mg/1 Ml Inj IV 10 mg Q6H PRN Administration htn Hydrochlorothiazide 12.5 mg 07/05/20 10:00 07/06/20 09:54 Hydrochlorothiazide 12.5 Mg Cap PO 12.5 mg DAILY KIMBERLY Administration Montelukast Sodium 10 mg 07/05/20 10:00 07/06/20 09:54 Montelukast 10 Mg Tab PO 10 mg DAILY KIMBERLY Administration Pantoprazole Sodium 40 mg 07/05/20 07:30 07/06/20 08:19 Pantoprazole 40 Mg Tab PO 40 mg QDAC KIMBERLY Administration Prednisone 40 mg 07/06/20 10:00 07/06/20 09:54 Prednisone 20 Mg Tab PO 40 mg BID KIMBERLY Administration Nutrition/Malnutrition Assess - Dietary Evaluation Nutrition/Malnutrition Findings: Nutrition Notes Start: 07/05/20 10:29 Freq: Status: Active Protocol: Document 07/05/20 10:29 (Rec: 07/05/20 10:36 [email or web address]) Nutrition Notes Need for Assessment generated from: Low BMI Initial or Follow up Assessment Current Diagnosis COPD,Hypertension,Respiratory Failure Current Diet No diet Labs/Tests Reviewed Pertinent Medications Reviewed Height 5 ft 1 in Weight 42.2 kg [place] Body Weight (kg) 47.72 BMI 17.6 Intake Prior to Admission Fair Weight Status Underweight Subjective/Other Information Screen for low BMI. Pt reports wt loss some time ago but unsure how much. She says it is very hard for her to gain weight. She states she eats a lot of food but it doesn't help. Pt open to ONS but scared it will cause diarrhea- will follow. Pt has no teeth and would like cynthia bañuelos MD verbally okay'ed to order. RN brought pt meal tray. GI Symptoms None Difficulty In Chewing Minimum of two criteria Yes Body Fat Depletion Mild depletion (non-severe) Muscle Mass Mild Depletion (non-severe) #1 Nutrition Diagnosis Malnutrition Etiology chronic disease As Evidenced by Signs and Symptoms pt with muscle and fat loss Is patient on ventilator? No Is Patient Ambulatory and/or Out of Bed No REE-([facility]-confined to bed) 1108.692 Kcal/Kg value to use for calculation 34 Approximate Energy Requirements Using 1435 kcal/Kg Calculation Used for Recommendations Kcal/kg Additional Notes Protein: 51-63g (1.2-1.5 g/kg) Fluid: 1 ml/kcal Nutrition Intervention Change Diet Order: Mechanical soft when able Add Supplement/Snack (indicate name/kcal Ensure [place] BID /protein ) Provides kCal: 700 Provides Protein (gm) 40 Goal #1 Meet at least 75% of protein and energy needs via PO and ONS intakes Anticipated Discharge Needs: [facility] soft Follow-Up By: 07/09/20 Additional Comments FU for intakes and ONS tolerance
[2020-07-06] MEDS: ACETAMINOPHEN 325 MG TAB PO PRN (20:32)
[2020-07-07] MEDS: IPRATROPIUM/ALBUTEROL SULFATE 3 ML AMPUL.NEB IH SCH ×4 (01:35→19:17)
[2020-07-07] MEDS: HEPARIN 5,000 UNIT/1 ML VIAL SUB-Q SCH ×3 (06:08→21:36)
[2020-07-07] MEDS: BUDESONIDE 0.5 MG/2 ML NEBU IH SCH ×2 (08:24→19:18)
[2020-07-07] MEDS: predniSONE 20 MG TAB PO SCH ×2 (11:06→21:36)
[2020-07-07] MEDS: hydroCHLOROthiazide 12.5 MG CAP PO SCH (11:06)
[2020-07-07] MEDS: MONTELUKAST 10 MG TAB PO SCH (11:07)
[2020-07-07] MEDS: PANTOPRAZOLE 40 MG TAB PO SCH (11:07)
[2020-07-07] MEDS: AZITHROMYCIN 250 MG TAB PO SCH (11:07)
--- NOTE | 2020-07-07 15:04 | Progress Note ---
Assessment and Plan Assessment and plan: Assessement: 64yo female who presents with COPD exacerbation (1) Acute respiratory failure with hypoxia Current Visit: Yes Status: Acute Plan to address problem: Supplemental O2, 3L home breathing treatments PRN CM working on getting O2 for patient (2) COPD exacerbation Current Visit: Yes Status: Acute Plan to address problem: Oxygen per nasal cannula 3 L/min. DuoNeb by nebulizer every 4 hours as needed. Singular 10 mg p.o. daily. Prednisone 40 mg BID daily Azithromycin ABX (3) Hypertension Current Visit: Yes Status: Chronic Qualifiers: Plan to address problem: Hydrochlorothiazide 12.5 mg p.o. daily. Amlodipine 5 mg p.o. daily. hydralazine 10 mg IV every 6 hours as needed. (4) DVT prophylaxis Current Visit: No Status: Acute Plan to address problem: Heparin 5000 subcu every 8 hours for DVT prophylaxis. Protonix 40 mg p.o. daily for GI prophylaxis. Patient is a full code DISPOSITION: continue treatment for COPD exacerbation. Working with CM to make sure pt has oxygen at home, plan for DC on Wednesday History Interval history: 07/05: pt with SOB, pt needs oxygen at home. no n/v 07/06 pt w/o complaint, breathing improving, no cp 07/07 no complaints, breathing improved, needs home O2 Hospitalist Physical - Physical exam Narrative exam: General appearance: Present: thin, no acute distress, well-nourished EENT: PERRL, EOM intact, hearing intact, clear oral mucosa, dentition poor Neck: Present: supple, normal ROM Respiratory: bilateral: NC O2, CTA, negative: rales, rhonchi, wheezing Cardiovascular: Rhythm: regular Heart Sounds: Present: S1 & S2. Absent: gallop, rub Extremities: no ischemia, No edema, normal temperature, normal color, Full ROM Abdominal: soft, non-tender, non-distended, normal bowel sounds Integumentary: Present: clear, warm, dry Psychiatric: appropriate mood/affect, intact judgment & insight Neurologic: CNII-XII intact, moves all extremities - Constitutional Vitals: Temp Pulse Resp BP Pulse Ox 97.5 F L 91 H 20 121/78 96 07/07/20 04:46 07/07/20 14:18 07/07/20 14:18 07/07/20 04:46 07/07/20 08:24 General appearance: Present: no acute distress, well-nourished HEART Score - HEART Score EKG: Non-specific Age: 45-65 Risk factors: 1-2 risk factors Troponin: Troponin T 0.014 ng/mL (0.00-0.029) 07/04/20 21:19 Troponin: < normal limit - Critical Actions Critical Actions: 0-3 pts:0.9-1.7%risk of adverse cardiac event.Candidate for discharge Results - Labs CBC & Chem 7: 07/06/20 04:22 07/04/20 19:47 Labs: Laboratory Last Values WBC 12.0 K/mm3 (4.5-11.0) H 07/06/20 04:22 RBC 4.36 M/mm3 (3.65-5.03) 07/06/20 04:22 Hgb 12.4 gm/dl (10.1-14.3) 07/06/20 04:22 Hct 37.7 % (30.3-42.9) 07/06/20 04:22 MCV 87 fl (79-97) 07/06/20 04:22 MCH 29 pg (28-32) 07/06/20 04:22 MCHC 33 % (30-34) 07/06/20 04:22 RDW 15.1 % (13.2-15.2) 07/06/20 04:22 Plt Count 306 K/mm3 (140-440) 07/06/20 04:22 Lymph % (Auto) 7.4 % (13.4-35.0) L 07/04/20 19:47 [place] % (Auto) 2.9 % (0.0-7.3) 07/04/20 19:47 Eos % (Auto) 1.5 % (0.0-4.3) 07/04/20 19:47 Baso % (Auto) 0.2 % (0.0-1.8) 07/04/20 19:47 Lymph # (Auto) 1.1 K/mm3 (1.2-5.4) L 07/04/20 19:47 [place] # (Auto) 0.4 K/mm3 (0.0-0.8) 07/04/20 19:47 Eos # (Auto) 0.2 K/mm3 (0.0-0.4) 07/04/20 19:47 Baso # (Auto) 0.0 K/mm3 (0.0-0.1) 07/04/20 19:47 Seg Neutrophils % 88.0 % (40.0-70.0) H 07/04/20 19:47 Seg Neutrophils # 12.8 K/mm3 (1.8-7.7) H 07/04/20 19:47 PT 12.2 Sec. (12.2-14.9) 07/04/20 19:47 INR 0.92 (0.87-1.13) 07/04/20 19:47 ABG pH 7.384 pH Units (7.350-7.450) 07/04/20 20:20 ABG pCO2 40.9 mm Hg 07/04/20 20:20 ABG pO2 61.2 mm Hg (80.0-90.0) L 07/04/20 20:20 ABG HCO3 23.9 mmol/L (20.0-26.0) 07/04/20 20:20 ABG O2 Saturation 93.2 % (95.0-99.0) L 07/04/20 20:20 ABG O2 Content 19.1 (0.0-44) 07/04/20 20:20 ABG Base Excess -1.1 mmol/L (-2.0-3.0) 07/04/20 20:20 ABG Hemoglobin 14.0 gm/dl (12.0-16.0) 07/04/20 20:20 ABG Carboxyhemoglobin 1.2 % (0.0-5.0) 07/04/20 20:20 ABG Methemoglobin 0.4 % (0.0-1.5) 07/04/20 20:20 Oxyhemoglobin 91.7 % (95.0-99.0) L 07/04/20 20:20 FiO2 32 % 07/04/20 20:20 Sodium 139 mmol/L (137-145) 07/04/20 19:47 Potassium 4.0 mmol/L (3.6-5.0) 07/04/20 19:47 Chloride 104.8 mmol/L (98-107) 07/04/20 19:47 Carbon Dioxide 22 mmol/L (22-30) 07/04/20 19:47 Anion Gap 16 mmol/L 07/04/20 19:47 BUN 13 mg/dL (7-17) 07/04/20 19:47 Creatinine 0.8 mg/dL (0.6-1.2) 07/04/20 19:47 Estimated GFR > 60 ml/min 07/04/20 19:47 BUN/Creatinine Ratio 16 % 07/04/20 19:47 Glucose 108 mg/dL (65-100) H 07/04/20 19:47 Lactic Acid 0.70 mmol/L (0.7-2.0) 07/04/20 21:19 Calcium 8.9 mg/dL (8.4-10.2) 07/04/20 19:47 Magnesium 2.20 mg/dL (1.7-2.3) 07/04/20 19:47 Total Creatine Kinase 21 units/L (30-135) L 07/04/20 19:47 Troponin T 0.014 ng/mL (0.00-0.029) 07/04/20 21:19 Microbiology: Microbiology 07/05/20 Unknown Peripheral/Venous Blood Culture - Preliminary NO GROWTH AFTER 48 HOURS 07/05/20 Unknown Peripheral/Venous Blood Culture - Preliminary NO GROWTH AFTER 48 HOURS Hoyt/IV: Voiding Method Toilet Active Medications - Current Medications Current Medications: Generic Name Dose Route Start Last Admin Trade Name Freq PRN Reason Stop Dose Admin Acetaminophen 650 mg 07/05/20 22:23 07/06/20 20:32 Acetaminophen 325 Mg Tab PO 650 mg Q4H PRN Administration Pain, Mild (1-3) Albuterol 2.5 mg 07/04/20 21:41 Albuterol 2.5 Mg/3 Ml Nebu IH Q4HRT PRN Shortness Of Breath Albuterol/Ipratropium 1 ampul 07/05/20 02:00 07/07/20 14:07 Ipratropium/Albuterol Sulfate 3 Ml Ampul.Neb IH 1 ampul Q6HRT KIMBERLY Administration Azithromycin 250 mg 07/05/20 10:00 07/07/20 11:07 Azithromycin 250 Mg Tab PO 07/09/20 10:01 250 mg QDAY KIMBERLY Administration Protocol Budesonide 0.5 mg 07/05/20 08:00 07/07/20 08:24 Budesonide 0.5 Mg/2 Ml Nebu IH 0.5 mg Q12HRT KIMBERLY Administration Heparin Sodium (Porcine) 5,000 unit 07/04/20 22:00 07/07/20 14:33 Heparin 5,000 Unit/1 Ml Vial SUB-Q 5,000 unit Q8HR KIMBERLY Administration Hydralazine HCl 10 mg 07/04/20 21:45 07/05/20 00:38 Hydralazine 20 Mg/1 Ml Inj IV 10 mg Q6H PRN Administration htn Hydrochlorothiazide 12.5 mg 07/05/20 10:00 07/07/20 11:06 Hydrochlorothiazide 12.5 Mg Cap PO 12.5 mg DAILY KIMBERLY Administration Montelukast Sodium 10 mg 07/05/20 10:00 07/07/20 11:07 Montelukast 10 Mg Tab PO 10 mg DAILY KIMBERLY Administration Pantoprazole Sodium 40 mg 07/05/20 07:30 07/07/20 11:07 Pantoprazole 40 Mg Tab PO 40 mg QDAC KIMBERLY Administration Prednisone 40 mg 07/06/20 10:00 07/07/20 11:06 Prednisone 20 Mg Tab PO 40 mg BID KIMBERLY Administration Nutrition/Malnutrition Assess - Dietary Evaluation Nutrition/Malnutrition Findings: Nutrition Notes Start: 07/05/20 10:29 Freq: Status: Active Protocol: Document 07/05/20 10:29 (Rec: 07/05/20 10:36 [id number]) Nutrition Notes Need for Assessment generated from: Low BMI Initial or Follow up Assessment Current Diagnosis COPD,Hypertension,Respiratory Failure Current Diet No diet Labs/Tests Reviewed Pertinent Medications Reviewed Height 5 ft 1 in Weight 42.2 kg [place] Body Weight (kg) 47.72 BMI 17.6 Intake Prior to Admission Fair Weight Status Underweight Subjective/Other Information Screen for low BMI. Pt reports wt loss some time ago but unsure how much. She says it is very hard for her to gain weight. She states she eats a lot of food but it doesn't help. Pt open to ONS but scared it will cause diarrhea- will follow. Pt has no teeth and would like cynthia bañuelos MD verbally okay'ed to order. RN brought pt meal tray. GI Symptoms None Difficulty In Chewing Minimum of two criteria Yes Body Fat Depletion Mild depletion (non-severe) Muscle Mass Mild Depletion (non-severe) #1 Nutrition Diagnosis Malnutrition Etiology chronic disease As Evidenced by Signs and Symptoms pt with muscle and fat loss Is patient on ventilator? No Is Patient Ambulatory and/or Out of Bed No REE-([facility]-confined to bed) 1108.692 Kcal/Kg value to use for calculation 34 Approximate Energy Requirements Using 1435 kcal/Kg Calculation Used for Recommendations Kcal/kg Additional Notes Protein: 51-63g (1.2-1.5 g/kg) Fluid: 1 ml/kcal Nutrition Intervention Change Diet Order: Mechanical soft when able Add Supplement/Snack (indicate name/kcal Ensure [place] BID /protein ) Provides kCal: 700 Provides Protein (gm) 40 Goal #1 Meet at least 75% of protein and energy needs via PO and ONS intakes Anticipated Discharge Needs: [facility] edda Follow-Up By: 07/09/20 Additional Comments FU for intakes and ONS tolerance
[2020-07-08] MEDS: IPRATROPIUM/ALBUTEROL SULFATE 3 ML AMPUL.NEB IH SCH ×2 (03:28→07:37)
[2020-07-08] MEDS: HEPARIN 5,000 UNIT/1 ML VIAL SUB-Q SCH ×2 (06:29→13:19)
[2020-07-08] MEDS: BUDESONIDE 0.5 MG/2 ML NEBU IH SCH (07:37)
--- NOTE | 2020-07-08 10:45 | Discharge Summary ---
Providers - Providers Date of Admission: 07/05/20 16:23 Date of discharge: 07/08/20 Attending physician: PAWEL DUBON MD Primary care physician: [employer] Hospitalization Reason for admission: COPD exacerbation Condition: Stable Hospital course: Assessment and plan: Assessement: 64yo female who presents with COPD exacerbation (1) Acute respiratory failure with hypoxia Current Visit: Yes Status: Acute Plan to address problem: Supplemental O2, 3L home breathing treatments PRN CM working on getting O2 for patient (2) COPD exacerbation Current Visit: Yes Status: Acute Plan to address problem: Oxygen per nasal cannula 3 L/min. DuoNeb by nebulizer every 4 hours as needed. Singular 10 mg p.o. daily. Continue prednisone 40mg daily with taper Continue azithromycin (3) Hypertension Current Visit: Yes Status: Chronic Qualifiers: Plan to address problem: Hydrochlorothiazide 12.5 mg p.o. daily. Amlodipine 5 mg p.o. daily. hydralazine 10 mg IV every 6 hours as needed. 07/05: pt with SOB, pt needs oxygen at home. no n/v 07/06 pt w/o complaint, breathing improving, no cp 07/07 no complaints, breathing improved, needs home O2 07/08 pt stable for DC. CM working with O2 company to make sure pt has O2 at home Disposition: DC-01 TO HOME OR SELFCARE Final Discharge Diagnosis (Prints w/discharge instructions): Acute respiratory failure with hypoxia. COPD exacerbation. Hypertension Time spent for discharge: >35 min Core Measure Documentation - Palliative Care Palliative Care/ Comfort Measures: Not Applicable - Core Measures Any of the following diagnoses?: none, history only Exam - Physical Exam Narrative exam: General appearance: Present: thin, no acute distress, well-nourished EENT: PERRL, EOM intact, hearing intact, clear oral mucosa, dentition poor Neck: Present: supple, normal ROM Respiratory: bilateral: NC O2, CTA, negative: rales, rhonchi, wheezing Cardiovascular: Rhythm: regular Heart Sounds: Present: S1 & S2. Absent: gallop, rub Extremities: no ischemia, No edema, normal temperature, normal color, Full ROM Abdominal: soft, non-tender, non-distended, normal bowel sounds Integumentary: Present: clear, warm, dry Psychiatric: appropriate mood/affect, intact judgment & insight Neurologic: CNII-XII intact, moves all extremities - Constitutional Vitals: Temp Pulse Resp BP Pulse Ox 98.8 F 91 H 18 123/88 99 07/08/20 06:23 07/08/20 07:37 07/08/20 07:37 07/08/20 06:23 07/08/20 07:36 Plan Activity: no restrictions Diet: low salt Durable Medical Equipment Needed Upon Discharge: Oxygen Follow up with: PRIMARY CARE, [Primary Care Provider] - 3-5 Days Prescriptions: predniSONE [Deltasone] 40 mg PO QDAY 3 Days #6 tab predniSONE [Deltasone] 20 mg PO QDAY 3 Days #3 tab predniSONE 10 mg PO QDAY 3 Days #3 tab Azithromycin [Zithromax TAB] 250 mg PO QDAY 7 Days #7 tablet
[2020-07-08] MEDS: MONTELUKAST 10 MG TAB PO SCH (11:46)
[2020-07-08] MEDS: predniSONE 20 MG TAB PO SCH (11:46)
[2020-07-08] MEDS: PANTOPRAZOLE 40 MG TAB PO SCH (11:46)
[2020-07-08] MEDS: AZITHROMYCIN 250 MG TAB PO SCH (11:46)
[2020-07-08] MEDS: hydroCHLOROthiazide 12.5 MG CAP PO SCH (11:46)
[2020-07-08 13:12] VITALS: BP 127/79
== END 2020-07-08 14:01 | disposition home or self-care (01) | DRG 189 ==
LOC: ED 18:57 → 3A 21:20 → OBSVTOIN 07-05 16:23
PROVIDERS: ADMIT Hospitalist; ATTEND Family Medicine
PROC: 5A09357 Assistance with Respiratory Ventilation, Less than 24 Consecutive Hours, Continuous Positive Airway Pressure (ICD-10-PCS; principal; 2020-07-05)
DX: J96.21 Acute and chronic respiratory failure with hypoxia (principal); J44.1 Chronic obstructive pulmonary disease with (acute) exacerbation; I10 Essential (primary) hypertension; Z79.899 Other long term (current) drug therapy; Z79.52 Long term (current) use of systemic steroids; Z87.891 Personal history of nicotine dependence
CPT/HCPCS: 36415; 71045; 71275; 80048; 80053; 82140; 82550; 82803; 83735; 84484; 85025; 85027; 85379; 85610; 85730; 87040; 93005; 94640; 94644; 94660; 96365; 96375; G0378; J0360; J1644; J1956; J2920; J3475; J7040; J7512; Q9967

== ENCOUNTER 2020-08-10 22:22 | Inpatient (IN) | payer MEDICAID ==
[2020-08-10] MEDS ORDERED: IPRATROPIUM 0.02% NEBU 2.5 ML IH ONE (22:27)
[2020-08-10] MEDS ORDERED: ALBUTEROL 2.5 MG/3 ML NEBU IH ONE (22:27)
--- NOTE | 2020-08-10 22:33 | Emergency Department Report ---
ED Shortness of Breath HPI - General Stated Complaint: JERMAINE Time Seen by Provider: 08/10/20 22:27 Source: patient, EMS - History of Present Illness Initial Comments: Patient is 64 years old female with history of COPD and hypertension. Patient brought to the emergency room via EMS from home for evaluation of shortness of breath for the last 2 days associated with wheezing. Patient stated that she has been using her albuterol with no improvement. Patient is on oxygen at home 3 L/min. Patient received albuterol, Atrovent, Solu-Medrol and magnesium sulfate by EMS with some improvement. Patient denied any fever or chills. No chest pain. MD Complaint: shortness of breath, cough -: days(s) Consistency: constant Known History Of: COPD Context: recent URI Associated Symptoms: denies other symptoms, cough - Related Data Home Medications Medication Instructions Recorded Confirmed Last Taken Loratadine 10 mg PO DAILY 03/23/19 03/23/19 Unknown Montelukast Sodium 10 mg PO DAILY 03/23/19 03/23/19 Unknown Pantoprazole 40 mg PO HS 03/23/19 03/23/19 Unknown Potassium Chloride 10 meq PO DAILY 03/23/19 03/23/19 Unknown hydroCHLOROthiazide [HCTZ] 12.5 mg PO DAILY 03/23/19 03/23/19 Unknown Previous Rx's Medication Instructions Recorded Last Taken Type Budesonide [Pulmicort Respules] 0.5 mg IH Q12HRT #60 nebu 10/22/18 Unknown Rx Tiotropium [Spiriva] 18 mcg IH QDAY #30 cap 10/22/18 Unknown Rx ALBUTEROL NEB's [Proventil 0.083% 2.5 mg IH TID PRN #1 box 07/02/20 Unknown Rx NEBS] Albuterol Mdi (or & Nicu Only) 2 puff IH QID PRN #1 inhalation 07/02/20 Unknown Rx [ProAir HFA Inhaler] Azithromycin [Zithromax TAB] 250 mg PO QDAY 7 Days #7 tablet 07/08/20 Unknown Rx predniSONE 10 mg PO QDAY 3 Days #3 tab 07/08/20 Unknown Rx predniSONE [Deltasone] 20 mg PO QDAY 3 Days #3 tab 07/08/20 Unknown Rx predniSONE [Deltasone] 40 mg PO QDAY 3 Days #6 tab 07/08/20 Unknown Rx Allergies Allergy/AdvReac Type Severity Reaction Status Date / Time No Known Allergies Allergy Unverified 06/07/13 12:53 ED Review of Systems ROS: Stated complaint: JERMAINE Other details as noted in HPI Comment: All other systems reviewed and negative Constitutional: denies: chills, fever Respiratory: cough, shortness of breath, SOB with exertion, wheezing Cardiovascular: denies: chest pain, palpitations Gastrointestinal: denies: abdominal pain, nausea, vomiting Musculoskeletal: denies: back pain Neurological: denies: headache, weakness ED Past Medical Hx - Past Medical History Hx Hypertension: Yes Hx CVA: No Hx Heart Attack/AMI: No Hx Congestive Heart Failure: No Hx Diabetes: No Hx Deep Vein Thrombosis: No Hx Pulmonary Embolism: No Hx GERD: No Hx Liver Disease: No Hx Renal Disease: No Hx Sickle Cell Disease: No Hx Arthritis: No Hx Headaches / Migraines: No Hx Seizures: No Hx Kidney Stones: No Hx Psychiatric Treatment: No Hx Asthma: Yes Hx COPD: Yes Hx Tuberculosis: No Hx Dementia: No Hx HIV: No - Surgical History Hx Coronary Stent: No Hx Open Heart Surgery: No Hx Pacemaker: No Hx Internal Defibrillator: No Hx Cholecystectomy: No Hx Appendectomy: No Hx Breast Surgery: No - Social History Smoking Status: Former Smoker - Medications Home Medications: Home Medications Medication Instructions Recorded Confirmed Last Taken Type Budesonide [Pulmicort Respules] 0.5 mg IH Q12HRT #60 nebu 10/22/18 03/23/19 Unknown Rx Tiotropium [Spiriva] 18 mcg IH QDAY #30 cap 10/22/18 03/23/19 Unknown Rx Loratadine 10 mg PO DAILY 03/23/19 03/23/19 Unknown History Montelukast Sodium 10 mg PO DAILY 03/23/19 03/23/19 Unknown History Pantoprazole 40 mg PO HS 03/23/19 03/23/19 Unknown History Potassium Chloride 10 meq PO DAILY 03/23/19 03/23/19 Unknown History hydroCHLOROthiazide [HCTZ] 12.5 mg PO DAILY 03/23/19 03/23/19 Unknown History ALBUTEROL NEB's [Proventil 0.083% 2.5 mg IH TID PRN #1 box 07/02/20 Unknown Rx NEBS] Albuterol Mdi (or & Nicu Only) 2 puff IH QID PRN #1 inhalation 07/02/20 Unknown Rx [ProAir HFA Inhaler] Azithromycin [Zithromax TAB] 250 mg PO QDAY 7 Days #7 tablet 07/08/20 Unknown Rx predniSONE 10 mg PO QDAY 3 Days #3 tab 07/08/20 Unknown Rx predniSONE [Deltasone] 20 mg PO QDAY 3 Days #3 tab 07/08/20 Unknown Rx predniSONE [Deltasone] 40 mg PO QDAY 3 Days #6 tab 07/08/20 Unknown Rx ED Physical Exam - General General appearance: alert, in distress - Head Head exam: Present: atraumatic, normocephalic, normal inspection - Eye Eye exam: Present: normal appearance, PERRL - ENT ENT exam: Present: normal exam, normal orophraynx, mucous membranes moist - Neck Neck exam: Present: normal inspection, full ROM. Absent: tenderness, meningismus - Respiratory Respiratory exam: Present: respiratory distress, wheezes, rales, rhonchi, decreased breath sounds, prolonged expiratory. Absent: stridor, accessory muscle use - Cardiovascular Cardiovascular Exam: Present: regular rate, normal rhythm, normal heart sounds - GI/Abdominal GI/Abdominal exam: Present: soft, normal bowel sounds. Absent: distended, tenderness, guarding, rebound, rigid, organomegaly, mass, bruit, pulsatile mass, hernia - Extremities Exam Extremities exam: Present: normal inspection, normal capillary refill. Absent: full ROM, calf tenderness - Back Exam Back exam: Present: normal inspection, full ROM. Absent: CVA tenderness (R), CVA tenderness (L) - Neurological Exam Neurological exam: Present: alert, oriented X3, CN II-XII intact - Psychiatric Psychiatric exam: Present: normal mood - Skin Skin exam: Present: warm, intact, normal color ED Course Vital Signs 08/10/20 08/10/20 08/10/20 22:35 22:42 22:44 Temperature 97.6 F Pulse Rate 111 H 112 H 115 H Pulse Rate [ Bilateral Throughout] Respiratory 28 H 30 H 28 H Rate Respiratory Rate [Bilateral Throughout] Blood Pressure Blood Pressure 180/113 [Left] O2 Sat by Pulse 100 100 100 Oximetry 08/10/20 08/10/20 08/10/20 22:45 23:00 23:18 Temperature Pulse Rate 112 H 105 H 100 H Pulse Rate [ Bilateral Throughout] Respiratory 29 H 22 20 Rate Respiratory Rate [Bilateral Throughout] Blood Pressure Blood Pressure 167/102 [Left] O2 Sat by Pulse 99 100 100 Oximetry 08/10/20 08/10/20 08/10/20 23:30 23:45 23:48 Temperature Pulse Rate 104 H 102 H Pulse Rate [ 110 H Bilateral Throughout] Respiratory 20 Rate Respiratory 24 Rate [Bilateral Throughout] Blood Pressure 134/102 Blood Pressure [Left] O2 Sat by Pulse 100 100 Oximetry ED Medical Decision Making - Lab Data Result diagrams: 08/10/20 22:47 08/10/20 22:47 - EKG Data -: EKG Interpreted by Nv EKG shows normal: sinus rhythm Rate: tachycardia - EKG Data Interpretation: no acute changes - Radiology Data Radiology results: report reviewed - Medical Decision Making Patient is 64 years old female with history of COPD and hypertension. Patient brought to the emergency room via EMS from home for evaluation of shortness of breath for the last 2 days associated with wheezing. Patient stated that she has been using her albuterol with no improvement. Patient is on oxygen at home 3 L/min. Patient received albuterol, Atrovent, Solu-Medrol and magnesium sulfate by EMS with some improvement. Patient denied any fever or chills. No chest pain. Patient received albuterol and Atrovent in the ER. Patient started on BiPAP. Chest x-ray is unremarkable. Labs are unremarkable. Discussed patient with Dr. Platt, he agreed to admit the patient to medical service for further management. Critical Care Time: Yes Critical care time in (mins) excluding proc time.: 30 Critical care attestation.: If time is entered above; I have spent that time in minutes in the direct care of this critically ill patient, excluding procedure time. ED Disposition Clinical Impression: Acute and chronic respiratory failure, Acute exacerbation of COPD with asthma Disposition: OP ADMIT IP TO THIS HOSP Is pt being admited?: Yes Condition: Stable Instructions: Asthma (ED)
--- NOTE | 2020-08-10 23:14 | XRay Report ---
CHEST 1 VIEW 08/10/2020 10:47 PM INDICATION / CLINICAL INFORMATION: Dyspnea. COMPARISON: One view of the chest from 07/04/2020. FINDINGS: SUPPORT DEVICES: None. HEART / MEDIASTINUM: No significant abnormality. LUNGS / PLEURA: No acute pulmonary abnormality. Chronic parenchymal changes are again noted bilateral ly. No significant pleural effusion. No pneumothorax. ADDITIONAL FINDINGS: No significant additional findings. IMPRESSION: 1. No acute abnormality of the chest. Signer Name: Henri Lau MD Signed: 08/10/2020 11:09 PM Workstation Name: [id number]
[2020-08-11 00:02] LABS: Basophils % (Auto) 0.3 % (0.0-1.8); Eosinophils # (Auto) 0.2 K/mm3 (0.0-0.4); Eosinophils % (Auto) 2.7 % (0.0-4.3); Hematocrit 43.5 % (30.3-42.9); Hemoglobin 14.3 gm/dl (10.1-14.3); Lymphocytes # (Auto) 2.3 K/mm3 (1.2-5.4); Lymphocytes % (Auto) 27.2 % (13.4-35.0); Mean Corpuscular HGB Conc 33 % (30-34); Mean Corpuscular Volume 87 fl (79-97); Monocytes # (Auto) 0.6 K/mm3 (0.0-0.8); Monocytes % (Auto) 6.9 % (0.0-7.3); Platelet Count 271 K/mm3 (140-440); Red Cell Distribution Width 13.8 % (13.2-15.2)
[2020-08-11 00:11] LABS: INR 0.95 (0.87-1.13)
[2020-08-11 00:21] LABS: BUN/Creatinine Ratio 19; Blood Urea Nitrogen 15 mg/dL (7-17); Calcium 9.2 mg/dL (8.4-10.2); Hemolysis Index 31
[2020-08-11 00:25] LABS: Alanine Aminotransferase 17 units/L (7-56); Albumin 4.5 g/dL (3.9-5); Bilirubin,Direct < 0.2 mg/dL (0-0.2)
[2020-08-11] MEDS ORDERED: ACETAMINOPHEN 325 MG TAB PO PRN (02:31)
[2020-08-11] MEDS ORDERED: MAGNESIUM HYDROXIDE (MOM) ORAL LIQD UDC PO PRN (02:31)
[2020-08-11] MEDS ORDERED: MORPHINE 2 MG/1 ML INJ IV PRN (02:31)
[2020-08-11] MEDS ORDERED: ONDANSETRON 4 MG/2 ML INJ IV PRN (02:31)
--- NOTE | 2020-08-11 02:43 | History and Physical Report ---
History of Present Illness Date of examination: 08/11/20 Date of admission: 08/11/20 00:27 Chief complaint: Shortness of breath History of present illness: 64-year-old female with known history of COPD and hypertension brought into the emergency room today for evaluation of shortness of breath which has been ongoing for the past 2 days. Patient has been using her nebulizer treatment without any significant improvement and she also indicates she has been wheezin g. Patient is on oxygen at home 3 L. She received nebulizing treatment with DuoNeb, magnesium sulfate and Solu-Medrol via EMS with some improvement. She denies any fever or chills, no chest pain, no nausea vomiting, no abdominal pain, no headache or dizziness, no diaphoresis. She has had some mild cough which is nonproductive. Patient denies any sick contacts and no recent travel. Denies any contact with anyone with COVID-19. Upon arrival in the emergency room she was quite tachycardic, tachypneic and hypoxic and subsequently placed on BiPAP. Work-up in the emergency room today chest x-ray did not reveal any acute abnormality. Patient admitted with COPD exacerbation. Past History Past Medical History: COPD Past Surgical History: No surgical history Social history: smoking (Current daily smoker) Family history: no significant family history Medications and Allergies Allergies Allergy/AdvReac Type Severity Reaction Status Date / Time No Known Allergies Allergy Unverified 06/07/13 12:53 Home Medications Medication Instructions Recorded Confirmed Last Taken Type Budesonide [Pulmicort Respules] 0.5 mg IH Q12HRT #60 nebu 10/22/18 03/23/19 Unknown Rx Tiotropium [Spiriva] 18 mcg IH QDAY #30 cap 10/22/18 03/23/19 Unknown Rx Loratadine 10 mg PO DAILY 03/23/19 03/23/19 Unknown History Montelukast Sodium 10 mg PO DAILY 03/23/19 03/23/19 Unknown History Pantoprazole 40 mg PO HS 03/23/19 03/23/19 Unknown History Potassium Chloride 10 meq PO DAILY 03/23/19 03/23/19 Unknown History hydroCHLOROthiazide [HCTZ] 12.5 mg PO DAILY 03/23/19 03/23/19 Unknown History ALBUTEROL NEB's [Proventil 0.083% 2.5 mg IH TID PRN #1 box 04/06/21 Unknown Rx NEBS] Albuterol Mdi (or & Nicu Only) 2 puff IH QID PRN #1 inhalation 07/02/20 Unknown Rx [ProAir HFA Inhaler] Azithromycin [Zithromax TAB] 250 mg PO QDAY 7 Days #7 tablet 07/08/20 Unknown Rx predniSONE 10 mg PO QDAY 3 Days #3 tab 07/08/20 Unknown Rx predniSONE [Deltasone] 20 mg PO QDAY 3 Days #3 tab 07/08/20 Unknown Rx predniSONE [Deltasone] 40 mg PO QDAY 3 Days #6 tab 07/08/20 Unknown Rx Active Meds: Active Medications Acetaminophen (Acetaminophen 325 Mg Tab) 650 mg PO Q4H PRN PRN Reason: Pain MILD(1-3)/Fever >100.5/MOTTA Albuterol/Ipratropium (Ipratropium/Albuterol Sulfate 3 Ml Ampul.Neb) 1 ampul IH Q4HRT [facility] Magnesium Hydroxide (Magnesium Hydroxide (Mom) Oral Liqd Udc) 30 ml PO Q4H PRN PRN Reason: Constipation Methylprednisolone Sodium Succinate (Methylprednisolone Sod Succinate 40 Mg/1 Ml Inj) 40 mg IV Q8HR [facility] Morphine Sulfate (Morphine 2 Mg/1 Ml Inj) 2 mg IV Q4H PRN PRN Reason: Pain, Moderate (4-6) Ondansetron HCl (Ondansetron 4 Mg/2 Ml Inj) 4 mg IV Q8H PRN PRN Reason: Nausea And Vomiting Sodium Chloride (Sodium Chloride 0.9% 10 Ml Flush Syringe) 10 ml IV BID [facility] Sodium Chloride (Sodium Chloride 0.9% 10 Ml Flush Syringe) 10 ml IV PRN PRN PRN Reason: LINE FLUSH Review of Systems Constitutional: no fever, no chills Ears, nose, mouth and throat: no nasal congestion, no sore throat Cardiovascular: no chest pain, no orthopnea, no palpitations Respiratory: cough, shortness of breath, wheezing, no cough with sputum Gastrointestinal: no abdominal pain, no nausea, no vomiting, no diarrhea, no constipation Genitourinary Female: no pelvic pain, no flank pain, no dysuria, no hematuria Musculoskeletal: no neck pain, no low back pain Integumentary: no rash, no pruritis Neurological: no headaches, no confusion Psychiatric: no anxiety, no depression Endocrine: no polyphagia, no excessive thirst, no polyuria, no nocturia Exam - Constitutional Vitals: Temp Pulse Resp BP Pulse Ox 97.6 F 115 H 21 141/91 100 08/10/20 22:35 08/11/20 01:00 08/11/20 02:14 08/11/20 01:00 08/11/20 02:14 General appearance: Present: mild distress, well-nourished - EENT Eyes: Present: PERRL, EOM intact. Absent: scleral icterus ENT: hearing intact, clear oral mucosa, dentition normal - Neck Neck: Present: supple, normal ROM - Respiratory Respiratory effort: normal Respiratory: bilateral: wheezing - Cardiovascular Rhythm: regular Heart Sounds: Present: S1 & S2. Absent: gallop, systolic murmur, diastolic murmur, rub, click - Extremities Extremities: no ischemia, pulses intact, pulses symmetrical, No edema, normal temperature, normal color, Full ROM Peripheral Pulses: within normal limits - Abdominal General gastrointestinal: Present: soft, non-tender, non-distended, normal bowel sounds. Absent: mass - Integumentary Integumentary: Present: clear, warm, dry, normal turgor. Absent: rash - Musculoskeletal Musculoskeletal: strength equal bilaterally - Psychiatric Psychiatric: appropriate mood/affect, intact judgment & insight, memory intact, cooperative - Neurologic Neurologic: CNII-XII intact, moves all extremities HEART Score - HEART Score Troponin: Troponin T < 0.010 ng/mL (0.00-0.029) 08/10/20 22:47 Results - Labs CBC & Chem 7: 08/10/20 22:47 08/10/20 22:47 Labs: Abnormal lab results 08/10/20 08/10/20 Range/Units 22:47 22:47 Hct 43.5 H (30.3-42.9) % Glucose 102 H (65-100) mg/dL Assessment and Plan - Patient Problems (1) COPD exacerbation Current Visit: No Status: Acute Plan to address problem: Patient placed on nebulizing treatments and IV steroid. Consult placed to seed potato arranger for further evaluation and recommendation. (2) Acute respiratory failure with hypoxia Current Visit: No Status: Acute Plan to address problem: Possibly secondary to the COPD exacerbation. Currently on BiPAP. We will keep O2 saturation greater or equal to 94%. (3) DVT prophylaxis Current Visit: No Status: Acute Plan to address problem: Patient placed on subcutaneous heparin. (4) Full code status Current Visit: Yes Status: Acute Plan to address problem: Patient is a full code.
[2020-08-11] MEDS: IPRATROPIUM/ALBUTEROL SULFATE 3 ML AMPUL.NEB IH SCH ×3 (04:48→13:10)
[2020-08-11] MEDS: methylPREDNISolone Sod Succinate 40 MG/1 ML INJ IV SCH ×3 (05:11→21:21)
--- NOTE | 2020-08-11 10:53 | Event Note ---
Date: 08/11/20 Patient seen and examined today continues on BiPAP still with increased work of breathing. If no improvement in the next few hours may need to move to the IMCU for closer monitoring. She is able to carry out full conversation despite the BiPAP.
[2020-08-11] MEDS: HEPARIN 5,000 UNIT/1 ML VIAL SUB-Q SCH ×2 (13:56→21:21)
--- NOTE | 2020-08-11 15:53 | Consultation ---
History of Present Illness Consult date: 08/11/20 Requesting physician: JEFF CHENG Reason for consult: COPD History of present illness: PULMONARY/CCM CONSULT NOTE (Full dictation # [id number]) Please see dictated notes for full details Past History Past Medical History: COPD Past Surgical History: No surgical history Social history: smoking (Current daily smoker) Family history: no significant family history Medications and Allergies Allergies Allergy/AdvReac Type Severity Reaction Status Date / Time No Known Allergies Allergy Unverified 06/07/13 12:53 Home Medications Medication Instructions Recorded Confirmed Last Taken Type Budesonide [Pulmicort Respules] 0.5 mg IH Q12HRT #60 nebu 10/22/18 03/23/19 Unknown Rx Tiotropium [Spiriva] 18 mcg IH QDAY #30 cap 10/22/18 03/23/19 Unknown Rx Loratadine 10 mg PO DAILY 03/23/19 03/23/19 Unknown History Montelukast Sodium 10 mg PO DAILY 03/23/19 03/23/19 Unknown History Pantoprazole 40 mg PO HS 03/23/19 03/23/19 Unknown History Potassium Chloride 10 meq PO DAILY 03/23/19 03/23/19 Unknown History hydroCHLOROthiazide [HCTZ] 12.5 mg PO DAILY 03/23/19 03/23/19 Unknown History ALBUTEROL NEB's [Proventil 0.083% 2.5 mg IH TID PRN #1 box 07/02/20 Unknown Rx NEBS] Albuterol Mdi (or & Nicu Only) 2 puff IH QID PRN #1 inhalation 07/02/20 Unknown Rx [ProAir HFA Inhaler] Azithromycin [Zithromax TAB] 250 mg PO QDAY 7 Days #7 tablet 07/08/20 Unknown Rx predniSONE 10 mg PO QDAY 3 Days #3 tab 07/08/20 Unknown Rx predniSONE [Deltasone] 20 mg PO QDAY 3 Days #3 tab 07/08/20 Unknown Rx predniSONE [Deltasone] 40 mg PO QDAY 3 Days #6 tab 07/08/20 Unknown Rx Active Meds: Active Medications Acetaminophen (Acetaminophen 325 Mg Tab) 650 mg PO Q4H PRN PRN Reason: Pain MILD(1-3)/Fever >100.5/MOTTA Albuterol/Ipratropium (Ipratropium/Albuterol Sulfate 3 Ml Ampul.Neb) 1 ampul IH Q4HRT [facility] Last Admin: 08/11/20 13:10 Dose: 1 ampul Documented by: Heparin Sodium (Porcine) (Heparin 5,000 Unit/1 Ml Vial) 5,000 unit SUB-Q Q8HR [facility] Last Admin: 08/11/20 13:56 Dose: 5,000 unit Documented by: Magnesium Hydroxide (Magnesium Hydroxide (Mom) Oral Liqd Udc) 30 ml PO Q4H PRN PRN Reason: Constipation Methylprednisolone Sodium Succinate (Methylprednisolone Sod Succinate 40 Mg/1 Ml Inj) 40 mg IV Q8HR [facility] Last Admin: 08/11/20 13:58 Dose: 40 mg Documented by: Morphine Sulfate (Morphine 2 Mg/1 Ml Inj) 2 mg IV Q4H PRN PRN Reason: Pain, Moderate (4-6) Ondansetron HCl (Ondansetron 4 Mg/2 Ml Inj) 4 mg IV Q8H PRN PRN Reason: Nausea And Vomiting Sodium Chloride (Sodium Chloride 0.9% 10 Ml Flush Syringe) 10 ml IV BID [facility] Last Admin: 08/11/20 09:19 Dose: 10 ml Documented by: Sodium Chloride (Sodium Chloride 0.9% 10 Ml Flush Syringe) 10 ml IV PRN PRN PRN Reason: LINE FLUSH Physical Examination Vital signs: Vital Signs Temp Pulse Resp BP Pulse Ox 97.6 F 111 H 28 H 180/113 100 08/10/20 22:35 08/10/20 22:35 08/10/20 22:35 08/10/20 22:35 08/10/20 22:35 Results - Laboratory Findings CBC and BMP: 08/10/20 22:47 08/10/20 22:47 PT/INR, D-dimer PT 12.6 Sec. (12.2-14.9) 08/10/20 22:47 INR 0.95 (0.87-1.13) 08/10/20 22:47 Abnormal lab findings: Abnormal Labs 08/10/20 08/10/20 22:47 22:47 Hct 43.5 H Glucose 102 H
[2020-08-11] MEDS ORDERED: IPRATROPIUM/ALBUTEROL SULFATE 3 ML AMPUL.NEB IH PRN (15:54)
[2020-08-11] MEDS: ARFORMOTEROL 15 MCG/2 ML NEBU IH SCH (20:57)
[2020-08-11] MEDS: BUDESONIDE 0.5 MG/2 ML NEBU IH SCH (20:57)
[2020-08-11] MEDS: FAMOTIDINE 20 MG TAB PO SCH (21:21)
--- NOTE | 2020-08-12 00:21 | Consultation ---
DATE OF CONSULTATION: 08/11/2020 CONSULTING PHYSICIAN: Dr. Rene. REASON FOR CONSULTATION: Acute COPD exacerbation. CHIEF HISTORY OF PRESENT ILLNESS: As follows. HISTORY OF PRESENT ILLNESS: The patient is a 64-year-old female with a known history of home oxygen dependent COPD, according to her, she is on 3 liters nasal cannula at home. She was brought into the emergency room yesterday for evaluation of shortness of breath, has been going on for about a couple of days. She did have MDI at home, she was using without any improvement. However, she admits to running out of her other medications for COPD, which included long-acting bronchodilators as well as inhaled corticosteroids. En route she received treatment to the ER with DuoNeb, magnesium sulfate, Solu-Medrol. She had some improvement; however, in the emergency room, she was still in significant respiratory distress and was placed on bilevel positive airway pressure ventilation therapy with improvement in her symptoms. We are asked to see her. When I stopped by to see her, she was sitting up in bed and telling me she felt so much better, remained on supplemental oxygen. She denied any chest pain. She denied any cough or expectoration in particular denied any hemoptysis prior to coming. She denies any new-onset leg pain or swelling, either unilaterally or bilaterally or any suggestion of deep venous thrombosis. She also denied any chest pains or palpitations prior to coming here. She admits to about a 20+ pack year tobacco smoking history, still smokes about a third pack to half a pack per day; however, denies illicit drug use or abuse. She denied any sick contacts and in particular denied contact with anyone with known COVID-19 infection. She lives as much of the history of presentation as I have. PAST MEDICAL HISTORY: Home oxygen dependent. PAST SURGICAL HISTORY: Denies. MEDICATIONS: She was on at the time I stopped by to see her, according to the medication administration record included the following: Tylenol 650 mg p.o. q.4 hours p.r.n. mild pain or fevers, DuoNeb nebulizer treatments nebulized q.4h., heparin 5000 units subQ q.8 hours, Solu-Medrol 40 mg IV q. 8 hours, morphine sulfate 2 mg IV q.4 hours p.r.n. moderate pain, Zofran 4 mg IV q.8 hours p.r.n. nausea and vomiting. ALLERGIES: No known drug allergies. DIET: Cachectic lady, denies acute weight loss or gain in the preceding few weeks to months. SOCIAL HISTORY: Lives in the community. A 20+ pack year tobacco smoking history. Denies alcohol or illicit drug use or abuse. FAMILY HISTORY: Otherwise, noncontributory. REVIEW OF SYSTEMS: No loss of consciousness. No new onset seizures. No new onset focal weakness. Denies gross hematochezia or melena. Denies gross hematuria or dysuria. No hematemesis, no hemoptysis. A complete 13-system review of system was obtained. Again, denies polydipsia, polyuria. Denies heat or cold intolerance. Pertinent positives and/or negatives as in body of history above, otherwise they are noncontributory. PHYSICAL EXAMINATION: VITAL SIGNS: At presentation in the emergency room; afebrile, temperature 97.6 degrees Fahrenheit, pulse of 111, respiratory rate of 28, blood pressure 180/113, O2 sats 100% inspired oxygen concentration at that time was not recorded. When I stopped by to see her O2 sats were 97% that was on, I believe 4 liters nasal cannula. GENERAL: She is an elderly looking, chronically ill looking female. Normocephalic, atraumatic, talking to me in mostly full sentences, but with mildly increased respiratory effort at rest. HEENT: Anicteric, No conjunctival erythema. Oropharynx is moist. Partially edentulous. Mallampati 2. Oropharynx; no gross jugular venous distention, no thyromegaly. Grossly, there were no palpable lymph nodes in the supraclavicular or submandibular lymph node chains. LUNGS: Auscultation of both lung cortes significant for diminished bilateral air movement, prolonged expiratory phase, faint right lower lobe inspiratory crackles. No wheezing. HEART: Sounds 1 and 2 are heard at the time of my evaluation, regular rate and rhythm without overt rubs or murmurs. ABDOMEN: Soft, full, bowel sounds are positive, nontender, no palpable hepatosplenomegaly. EXTREMITIES: Without overt digital clubbing or cyanosis. No pedal edema. Pedal pulses are 2+ bilaterally. NEUROLOGIC: Pupils are equal, round, about 4 mm, reactive to light. Extraocular muscle movements are intact. She moves all 4 extremities spontaneously. Mood was Normal. Affect was appropriate. She had intact judgment and insight. SKIN: Poor turgor; however, without overt cellulitis or rash in the areas examined. Please see the wound care nurses' notes for full description of her skin. LABORATORY DATA: White count 8300, hemoglobin 14.3, hematocrit 43.5, platelet count 271. No manual differential. INR within normal limits. Serum sodium 143, potassium 3.9, chloride 102, bicarbonate 29, BUN 15, creatinine 0.8, glucose 102. Lactic acid within normal limits. Liver function test within normal limits. Troponin within normal limits. No blood cultures for my review. Chest x-ray has been reviewed and adjusted essentially shows evidence of hyperinflation without any acute abnormality. ASSESSMENT: 1. Acute on chronic hypoxemic respiratory failure. 2. Acute chronic obstructive pulmonary disease exacerbation. 3. Tobacco use disorder. 4. Adult failure to thrive. PLAN: I do agree with current therapies. I will add long acting bronchodilators as well as inhaled corticosteroids and changing the short-acting treatments to p.r.n. essentially. Oxygen will be weaned to keep sats greater than or equal to about 90%. I will follow her clinically off antibiotic therapy. I do feel that noncompliance/running out of her medications as the cause of his decompensation. I will taper the systemic steroids to q.12h. at the same dose 40 mg IV. No significant clinical suspicion for venous thromboembolic disorder in this lady. I have encouraged her to quit tobacco. I have again offered assistance with adjuncts to help her to cease smoking. She is not ready to discuss that at this time, but she promises to consider it. Thank you very much for the consult. We will follow along and make further recommendations as picture progresses/becomes clearer. TID: [id number] RECEIPT: [id number] BOSSMAN DUNCAN
[2020-08-12] MEDS: ALBUTEROL 2.5 MG/3 ML NEBU IH PRN ×2 (01:20→15:30)
[2020-08-12] MEDS: methylPREDNISolone Sod Succinate 40 MG/1 ML INJ IV SCH ×3 (06:18→21:59)
[2020-08-12 06:19] LABS: Basophils % (Auto) 0.1 % (0.0-1.8); Hematocrit 34.4 % (30.3-42.9); Hemoglobin 11.4 gm/dl (10.1-14.3); Lymphocytes # (Auto) 0.8 K/mm3 (1.2-5.4); Lymphocytes % (Auto) 12.2 % (13.4-35.0); Mean Corpuscular HGB Conc 33 % (30-34); Mean Corpuscular Volume 86 fl (79-97); Monocytes # (Auto) 0.5 K/mm3 (0.0-0.8); Monocytes % (Auto) 7.1 % (0.0-7.3); Platelet Count 243 K/mm3 (140-440); Red Blood Count 4.02 M/mm3 (3.65-5.03); Red Cell Distribution Width 13.7 % (13.2-15.2)
[2020-08-12] MEDS: HEPARIN 5,000 UNIT/1 ML VIAL SUB-Q SCH ×3 (06:19→21:59)
[2020-08-12 06:29] LABS: INR 1.02 (0.87-1.13)
[2020-08-12 06:38] LABS: BUN/Creatinine Ratio 27; Blood Urea Nitrogen 19 mg/dL (7-17); Calcium 8.7 mg/dL (8.4-10.2); Hemolysis Index 4
[2020-08-12] MEDS: ARFORMOTEROL 15 MCG/2 ML NEBU IH SCH ×2 (08:03→20:31)
[2020-08-12] MEDS: BUDESONIDE 0.5 MG/2 ML NEBU IH SCH ×2 (08:03→20:31)
--- NOTE | 2020-08-12 11:34 | Progress Note ---
Assessment and Plan Assessment and plan: 64-year-old female with known history of COPD and hypertension brought into the emergency room today for evaluation of shortness of breath which has been ongoing for the past 2 days. Patient has been using her nebulizer treatment without any significant improvement and she also indicates she has been wh eezing. Patient is on oxygen at home 3 L. She received nebulizing treatment with DuoNeb, magnesium sulfate and Solu-Medrol via EMS with some improvement. She denies any fever or chills, no chest pain, no nausea vomiting, no abdominal pain, no headache or dizziness, no diaphoresis. She has had some mild cough which is nonproductive. Patient denies any sick contacts and no recent travel. Denies any contact with anyone with COVID-19. Upon arrival in the emergency room she was quite tachycardic, tachypneic and hypoxic and subsequently placed on BiPAP. Work-up in the emergency room today chest x-ray did not reveal any acute abnormality. Patient admitted with COPD exacerbation. Acute hypoxic respiratory failure COPD exacerbation Tobacco use disorder Adult failure to thrive severe protein calorie malnutrition Non compliance Plan Continue supportive care Wean oxygen as tolerating Tobacco use counselling for 35 mins Regional Business Manager Consult Pulmonary input noted and continue management with steroids, nebs Discussed in IDT rounds with Case management History Interval history: Patient seen and examined this morning down to 4 L still with exertional dyspnea raspy breath. No chest pain. Hospitalist Physical - Physical exam Narrative exam: VITAL SIGNS: Reviewed. GENERAL: The patient appears chronically ill, cachectic, Vital signs as documented. HEAD: No signs of head trauma. EYES: Pupils are equal. Extraocular motions intact. EARS: Hearing grossly intact. MOUTH: Oropharynx is normal. NECK: No adenopathy, no JVD. CHEST: Chest with diminished breath sounds bilaterally with rhonchi bilaterally at the bases. CARDIAC: Regular rate and rhythm. S1 and S2, without murmurs, gallops, or rubs. VASCULAR: No Edema. Peripheral pulses normal and equal in all extremities. ABDOMEN: Soft, non tender and non distended. No rebound or guarding, and no masses palpated. Bowel Sounds normal. MUSCULOSKELETAL: Good range of motion of all major joints. Extremities without clubbing, cyanosis or edema. NEUROLOGIC EXAM: Alert and oriented x 3 No focal sensory or strength deficits. Speech normal. Follows commands. PSYCHIATRIC: Mood normal. SKIN: detail exam as documented in skin assessment - Constitutional Vitals: Temp Pulse Resp BP Pulse Ox 98.7 F 102 H 20 139/83 92 08/12/20 08:21 08/12/20 08:21 08/12/20 08:21 08/12/20 08:21 08/12/20 08:21 General appearance: Present: mild distress, well-nourished HEART Score - HEART Score Troponin: Troponin T < 0.010 ng/mL (0.00-0.029) 08/10/20 22:47 Results - Labs CBC & Chem 7: 08/12/20 06:01 08/12/20 06:01 Labs: Laboratory Last Values WBC 6.9 K/mm3 (4.5-11.0) 08/12/20 06:01 RBC 4.02 M/mm3 (3.65-5.03) 08/12/20 06:01 Hgb 11.4 gm/dl (10.1-14.3) 08/12/20 06:01 Hct 34.4 % (30.3-42.9) D 08/12/20 06:01 MCV 86 fl (79-97) 08/12/20 06:01 MCH 28 pg (28-32) 08/12/20 06:01 MCHC 33 % (30-34) 08/12/20 06:01 RDW 13.7 % (13.2-15.2) 08/12/20 06:01 Plt Count 243 K/mm3 (140-440) 08/12/20 06:01 Lymph % (Auto) 12.2 % (13.4-35.0) L 08/12/20 06:01 Letcher % (Auto) 7.1 % (0.0-7.3) 08/12/20 06:01 Eos % (Auto) 0.0 % (0.0-4.3) 08/12/20 06:01 Baso % (Auto) 0.1 % (0.0-1.8) 08/12/20 06:01 Lymph # (Auto) 0.8 K/mm3 (1.2-5.4) L 08/12/20 06:01 Letcher # (Auto) 0.5 K/mm3 (0.0-0.8) 08/12/20 06:01 Eos # (Auto) 0.0 K/mm3 (0.0-0.4) 08/12/20 06:01 Baso # (Auto) 0.0 K/mm3 (0.0-0.1) 08/12/20 06:01 Seg Neutrophils % 80.6 % (40.0-70.0) H 08/12/20 06:01 Seg Neutrophils # 5.6 K/mm3 (1.8-7.7) 08/12/20 06:01 PT 13.3 Sec. (12.2-14.9) 08/12/20 06:01 INR 1.02 (0.87-1.13) 08/12/20 06:01 APTT 26.0 Sec. (24.2-36.6) 08/10/20 22:47 Sodium 139 mmol/L (137-145) 08/12/20 06:01 Potassium 4.3 mmol/L (3.6-5.0) 08/12/20 06:01 Chloride 102.2 mmol/L (98-107) 08/12/20 06:01 Carbon Dioxide 28 mmol/L (22-30) 08/12/20 06:01 Anion Gap 13 mmol/L 08/12/20 06:01 BUN 19 mg/dL (7-17) H 08/12/20 06:01 Creatinine 0.7 mg/dL (0.6-1.2) 08/12/20 06:01 Estimated GFR > 60 ml/min 08/12/20 06:01 BUN/Creatinine Ratio 27 % 08/12/20 06:01 Glucose 108 mg/dL (65-100) H 08/12/20 06:01 Lactic Acid 1.20 mmol/L (0.7-2.0) 08/10/20 22:47 Calcium 8.7 mg/dL (8.4-10.2) 08/12/20 06:01 Total Bilirubin 0.40 mg/dL (0.1-1.2) 08/10/20 22:47 Direct Bilirubin < 0.2 mg/dL (0-0.2) 08/10/20 22:47 Indirect Bilirubin 0.2 mg/dL 08/10/20 22:47 AST 25 units/L (5-40) 08/10/20 22:47 ALT 17 units/L (7-56) 08/10/20 22:47 Alkaline Phosphatase 90 units/L (35-129) 08/10/20 22:47 Troponin T < 0.010 ng/mL (0.00-0.029) 08/10/20 22:47 NT-Pro-B Natriuret Pep 94.21 pg/mL (0-900) 08/10/20 22:47 Total Protein 6.5 g/dL (6.3-8.2) 08/10/20 22:47 Albumin 4.5 g/dL (3.9-5) 08/10/20 22:47 Albumin/Globulin Ratio 2.3 % 08/10/20 22:47 Hoyt/IV: Voiding Method Toilet Active Medications - Current Medications Current Medications: Generic Name Dose Route Start Last Admin Trade Name Freq PRN Reason Stop Dose Admin Acetaminophen 650 mg 08/11/20 02:31 Acetaminophen 325 Mg Tab PO Q4H PRN Pain MILD(1-3)/Fever >100.5/MOTTA Albuterol 2.5 mg 08/11/20 15:58 08/12/20 01:20 Albuterol 2.5 Mg/3 Ml Nebu IH 2.5 mg Q4H PRN Administration Shortness Of Breath Arformoterol Tartrate 15 mcg 08/11/20 20:00 08/12/20 08:03 Arformoterol 15 Mcg/2 Ml Nebu IH 15 mcg Q12HRT KIMBERLY Administration Budesonide 0.5 mg 08/11/20 20:00 08/12/20 08:03 Budesonide 0.5 Mg/2 Ml Nebu IH 0.5 mg Q12HRT KIMBERLY Administration Famotidine 20 mg 08/11/20 22:00 08/11/20 21:21 Famotidine 20 Mg Tab PO 20 mg QHS KIMBERLY Administration Heparin Sodium (Porcine) 5,000 unit 08/11/20 14:00 08/12/20 06:19 Heparin 5,000 Unit/1 Ml Vial SUB-Q 5,000 unit Q8HR KIMBERLY Administration Magnesium Hydroxide 30 ml 08/11/20 02:31 Magnesium Hydroxide (Mom) Oral Liqd Udc PO Q4H PRN Constipation Methylprednisolone Sodium Succinate 40 mg 08/11/20 06:00 08/12/20 06:18 Methylprednisolone Sod Succinate 40 Mg/1 Ml Inj IV 40 mg Q8HR KIMBERLY Administration Morphine Sulfate 2 mg 08/11/20 02:31 Morphine 2 Mg/1 Ml Inj IV Q4H PRN Pain, Moderate (4-6) Ondansetron HCl 4 mg 08/11/20 02:31 Ondansetron 4 Mg/2 Ml Inj IV Q8H PRN Nausea And Vomiting Sodium Chloride 10 ml 08/11/20 10:00 08/11/20 21:21 Sodium Chloride 0.9% 10 Ml Flush Syringe IV 10 ml BID KIMBERLY Administration Sodium Chloride 10 ml 08/11/20 02:31 Sodium Chloride 0.9% 10 Ml Flush Syringe IV PRN PRN LINE FLUSH
--- NOTE | 2020-08-12 16:28 | Progress Note ---
Assessment and Plan 64-year-old female with known history of COPD and hypertension brought into the emergency room for evaluation of shortness of breath which has been ongoing for the past 2 days. Patient has been using her nebulizer treatment without any si gnificant improvement and she also indicates she has been wheezing. Patient is on oxygen at home 3 L. She received nebulizing treatment with DuoNeb, magnesium sulfate and Solu-Medrol via EMS with some improvement. She denies any fever or chills, no chest pain, no nausea vomiting, no abdominal pain, no headache or dizziness, no diaphoresis. She has had some mild cough which is nonproductive. Patient denies any sick contacts and no recent travel. Denies any contact with anyone with COVID-19. Upon arrival in the emergency room she was quite tachycardic, tachypneic and hypoxic and subsequently placed on BiPAP. Patient admitted for COPD exacerbation. Patient is alert and awake and anxious. Patient resting on 4L O2. O2 saturation running 99%. BiPAP 14/8, rate 20, FiO2 40% STANDBY in room. Patient is afebrile and has no leukocytosis. Chest x-ray done on 08/10/20 shows no acute abnormality of the chest. Patient is on solumedrol, s/c heparin, famotidine, albuterol aerosol treatment. - Patient Problems (1) Acute and chronic respiratory failure Current Visit: Yes Status: Acute Plan to address problem: O2 4L via nasal cannula. Continue brovana and budenoside q12 hours. Albuterol aerosol treatments q6 hours PRN for SOB. Continue IV solumedrol. Continue s/c heparin. Continue famotidine. (2) Acute exacerbation of COPD with asthma Current Visit: Yes Status: Acute Plan to address problem: O2 4L via nasal cannula. Continue brovana and budenoside q12 hours. Albuterol aerosol treatments q6 hours PRN for SOB. Continue IV solumedrol. Continue s/c heparin. Continue famotidine. PFT's as outpatient. ABG's on room air. (3) ISAC (acute kidney injury) Current Visit: No Status: Acute Plan to address problem: Management as per nephrology. (4) Acute chest pain Current Visit: No Status: Acute Plan to address problem: Management as per primary care. (5) Hypertension Current Visit: No Status: Chronic Qualifiers: Plan to address problem: Management as per primary care. Subjective Date of service: 08/12/20 Interval history: 64-year-old female with known history of COPD and hypertension brought into the emergency room for evaluation of shortness of breath which has been ongoing for the past 2 days. Patient has been using her nebulizer treatment without any significant improvement and she also indicates she has been wheezing. Patient is on oxygen at home 3 L. She received nebulizing treatment with DuoNeb, magnesium sulfate and Solu-Medrol via EMS with some improvement. She denies any fever or chills, no chest pain, no nausea vomiting, no abdominal pain, no headache or dizziness, no diaphoresis. She has had some mild cough which is nonproductive. Patient denies any sick contacts and no recent travel. Denies any contact with anyone with COVID-19. Upon arrival in the emergency room she was quite tachycardic, tachypneic and hypoxic and subsequently placed on BiPAP. Patient admitted for COPD exacerbation. Patient is alert and awake and anxious. Patient resting on 4L O2. O2 saturation running 99%. BiPAP 14/8, rate 20, FiO2 40% STANDBY in room. Patient is afebrile and has no leukocytosis. Chest x-ray done on 08/10/20 shows no acute abnormality of the chest. Patient is on solumedrol, s/c heparin, famotidine, albuterol aerosol treatment. Objective Vital Signs - 12hr 08/12/20 08/12/20 08/12/20 03:25 07:45 08:00 Temperature 98.0 F Pulse Rate 100 H 98 H Pulse Rate [ Bilateral Throughout] Respiratory 20 20 Rate Respiratory Rate [Bilateral Throughout] Blood Pressure 123/72 O2 Sat by Pulse 100 98 Oximetry 08/12/20 08/12/20 08/12/20 08:02 08:03 08:21 Temperature 98.7 F Pulse Rate 102 H Pulse Rate [ 96 H Bilateral Throughout] Respiratory 20 Rate Respiratory 18 Rate [Bilateral Throughout] Blood Pressure 41/14 139/83 O2 Sat by Pulse 96 92 Oximetry 08/12/20 11:09 Temperature 97.9 F Pulse Rate 90 Pulse Rate [ Bilateral Throughout] Respiratory 20 Rate Respiratory Rate [Bilateral Throughout] Blood Pressure 121/76 O2 Sat by Pulse 99 Oximetry Constitutional: no acute distress, alert, other (anxious) Eyes: non-icteric ENT: oropharynx moist Neck: supple Effort: normal Ascultation: Bilateral: other (prolonged expiratory phase) Cardiovascular: regular rate and rhythm Gastrointestinal: normoactive bowel sounds, non-distended Integumentary: normal Extremities: no cyanosis Neurologic: normal mental status, non-focal exam Psychiatric: mood appropriate, affect normal, anxious CBC and BMP: 08/12/20 06:01 08/12/20 06:01 ABG, PT/INR, D-dimer: PT/INR, D-dimer PT 13.3 Sec. (12.2-14.9) 08/12/20 06:01 INR 1.02 (0.87-1.13) 08/12/20 06:01 Abnormal lab findings: Abnormal Labs 08/10/20 08/10/20 08/12/20 22:47 22:47 06:01 Hct 43.5 H Lymph % (Auto) 12.2 L Lymph # (Auto) 0.8 L Seg Neutrophils % 80.6 H BUN Glucose 102 H 08/12/20 06:01 Hct Lymph % (Auto) Lymph # (Auto) Seg Neutrophils % BUN 19 H Glucose 108 H Chest x-ray: report reviewed, image reviewed Additional Studies: CHEST 1 VIEW 08/10/2020 10:47 PM INDICATION / CLINICAL INFORMATION: Dyspnea. COMPARISON: One view of the chest from 07/04/2020. FINDINGS: SUPPORT DEVICES: None. HEART / MEDIASTINUM: No significant abnormality. LUNGS / PLEURA: No acute pulmonary abnormality. Chronic parenchymal changes are again noted bilaterally. No significant pleural effusion. No pneumothorax. ADDITIONAL FINDINGS: No significant additional findings. IMPRESSION: 1. No acute abnormality of the chest.
[2020-08-12] MEDS: FAMOTIDINE 20 MG TAB PO SCH (21:59)
[2020-08-13] MEDS: methylPREDNISolone Sod Succinate 40 MG/1 ML INJ IV SCH (06:27)
[2020-08-13] MEDS: HEPARIN 5,000 UNIT/1 ML VIAL SUB-Q SCH ×3 (06:27→21:47)
[2020-08-13] MEDS: ARFORMOTEROL 15 MCG/2 ML NEBU IH SCH ×2 (07:55→20:17)
[2020-08-13] MEDS: BUDESONIDE 0.5 MG/2 ML NEBU IH SCH ×2 (07:55→20:17)
[2020-08-13] MEDS: methylPREDNISolone Sod Succinate 125 MG/2 ML INJ IV SCH ×3 (11:15→21:48)
[2020-08-13] MEDS: ALPRAZolam 0.25 MG TAB PO PRN ×2 (11:15→21:47)
--- NOTE | 2020-08-13 11:37 | Progress Note ---
Assessment and Plan Assessment and plan: Acute hypoxic respiratory failure COPD exacerbation Tobacco use disorder Adult failure to thrive severe protein calorie malnutrition Non compliance Plan BiPAP as needed. Wean as tolerated Increase steroids Continue supportive care Tobacco use counselling for 35 mins Cellar Hand Consult Pulmonary input noted and continue management with steroids, nebs Discussed in IDT rounds with Case management History Interval history: 64-year-old female with known history of COPD and hypertension brought into the emergency room today for evaluation of shortness of breath which has been ongoing for the past 2 days. Patient has been using her nebulizer treatment wi thout any significant improvement and she also indicates she has been wheezing. Patient is on oxygen at home 3 L. She received nebulizing treatment with DuoNeb, magnesium sulfate and Solu-Medrol via EMS with some improvement. She denies any fever or chills, no chest pain, no nausea vomiting, no abdominal pain, no headache or dizziness, no diaphoresis. She has had some mild cough which is nonproductive. Patient denies any sick contacts and no recent travel. Denies any contact with anyone with COVID-19. Upon arrival in the emergency room she was quite tachycardic, tachypneic and hypoxic and subsequently placed on BiPAP. Work-up in the emergency room today chest x-ray did not reveal any acute abnormality. Patient admitted with COPD exacerbation. Hospital course 08/13. Patient seen and examined at bedside this morning. Has diminished breath sounds on examination with minimal wheeze. Placed on BiPAP overnight for worsening shortness of breath. Complains of having panic attack. Patient started on low-dose Xanax. Increase steroids. Continue to monitor for now Hospitalist Physical - Physical exam Narrative exam: VITAL SIGNS: Reviewed. GENERAL: Awake HEAD: No signs of head trauma. EYES: Pupils are equal. Extraocular motions intact. MOUTH: Oropharynx is normal. NECK: No adenopathy, no JVD. CHEST: Diminished breath sounds bilaterally CARDIAC: normal S1 and S2, without murmurs, gallops, or rubs. ABDOMEN: Soft, non tender and non distended. No rebound or guarding, and no masses palpated. Bowel Sounds normal. MUSCULOSKELETAL: No edema NEUROLOGIC EXAM: Alert and oriented x3. No focal neurologic deficits SKIN: No obvious lesions - Constitutional Vitals: Temp Pulse Resp BP Pulse Ox 98.3 F 78 18 153/103 99 08/13/20 08:32 08/13/20 08:32 08/13/20 08:32 08/13/20 08:32 08/13/20 08:32 HEART Score - HEART Score Troponin: Troponin T < 0.010 ng/mL (0.00-0.029) 08/10/20 22:47 Results - Labs CBC & Chem 7: 08/12/20 06:01 08/12/20 06:01 Labs: Laboratory Last Values WBC 6.9 K/mm3 (4.5-11.0) 08/12/20 06:01 RBC 4.02 M/mm3 (3.65-5.03) 08/12/20 06:01 Hgb 11.4 gm/dl (10.1-14.3) 08/12/20 06:01 Hct 34.4 % (30.3-42.9) D 08/12/20 06:01 MCV 86 fl (79-97) 08/12/20 06:01 MCH 28 pg (28-32) 08/12/20 06:01 MCHC 33 % (30-34) 08/12/20 06:01 RDW 13.7 % (13.2-15.2) 08/12/20 06:01 Plt Count 243 K/mm3 (140-440) 08/12/20 06:01 Lymph % (Auto) 12.2 % (13.4-35.0) L 08/12/20 06:01 [place] % (Auto) 7.1 % (0.0-7.3) 08/12/20 06:01 Eos % (Auto) 0.0 % (0.0-4.3) 08/12/20 06:01 Baso % (Auto) 0.1 % (0.0-1.8) 08/12/20 06:01 Lymph # (Auto) 0.8 K/mm3 (1.2-5.4) L 08/12/20 06:01 [place] # (Auto) 0.5 K/mm3 (0.0-0.8) 08/12/20 06:01 Eos # (Auto) 0.0 K/mm3 (0.0-0.4) 08/12/20 06:01 Baso # (Auto) 0.0 K/mm3 (0.0-0.1) 08/12/20 06:01 Seg Neutrophils % 80.6 % (40.0-70.0) H 08/12/20 06:01 Seg Neutrophils # 5.6 K/mm3 (1.8-7.7) 08/12/20 06:01 PT 13.3 Sec. (12.2-14.9) 08/12/20 06:01 INR 1.02 (0.87-1.13) 08/12/20 06:01 APTT 26.0 Sec. (24.2-36.6) 08/10/20 22:47 ABG pH 7.440 (7.320-7.450) 08/13/20 11:00 POC ABG pCO2 38.0 mmHg (32.0-48.0) 08/13/20 11:00 POC ABG pO2 60.7 mmHg (83-108) L 08/13/20 11:00 POC ABG HCO3 25.2 08/13/20 11:00 ABG O2 Saturation 92.1 (0-100) 08/13/20 11:00 POC ABG Base Excess 1.2 08/13/20 11:00 ABG Hemoglobin 12.0 (12.0-17.5) 08/13/20 11:00 ABG Oxyhemoglobin 91.4 (94-98) L 08/13/20 11:00 ABG Methemoglobin 0.3 (0.0-1.5) 08/13/20 11:00 ABG Sodium 139.0 mmol/L (136.0-145.0) 08/13/20 11:00 ABG Potassium 4.1 mmol/L (3.40-4.50) 08/13/20 11:00 ABG Chloride 105.0 mmol/L (98-107) 08/13/20 11:00 ABG Glucose 89 mg/dL (65-95) 08/13/20 11:00 Carboxyhemoglobin 0.5 (0.5-1.5) 08/13/20 11:00 FiO2 % 21.0 08/13/20 11:00 Sodium 139 mmol/L (137-145) 08/12/20 06:01 Potassium 4.3 mmol/L (3.6-5.0) 08/12/20 06:01 Chloride 102.2 mmol/L (98-107) 08/12/20 06:01 Carbon Dioxide 28 mmol/L (22-30) 08/12/20 06:01 Anion Gap 13 mmol/L 08/12/20 06:01 BUN 19 mg/dL (7-17) H 08/12/20 06:01 Creatinine 0.7 mg/dL (0.6-1.2) 08/12/20 06:01 Estimated GFR > 60 ml/min 08/12/20 06:01 BUN/Creatinine Ratio 27 % 08/12/20 06:01 Glucose 108 mg/dL (65-100) H 08/12/20 06:01 Lactic Acid 1.20 mmol/L (0.7-2.0) 08/10/20 22:47 Calcium 8.7 mg/dL (8.4-10.2) 08/12/20 06:01 Total Bilirubin 0.40 mg/dL (0.1-1.2) 08/10/20 22:47 Direct Bilirubin < 0.2 mg/dL (0-0.2) 08/10/20 22:47 Indirect Bilirubin 0.2 mg/dL 08/10/20 22:47 AST 25 units/L (5-40) 08/10/20 22:47 ALT 17 units/L (7-56) 08/10/20 22:47 Alkaline Phosphatase 90 units/L (35-129) 08/10/20 22:47 Troponin T < 0.010 ng/mL (0.00-0.029) 08/10/20 22:47 NT-Pro-B Natriuret Pep 94.21 pg/mL (0-900) 08/10/20 22:47 Total Protein 6.5 g/dL (6.3-8.2) 08/10/20 22:47 Albumin 4.5 g/dL (3.9-5) 08/10/20 22:47 Albumin/Globulin Ratio 2.3 % 08/10/20 22:47 Arterial Blood Glucose 89 mg/dL (65-95) 08/13/20 11:00 Arterial Blood Ionized Calcium 4.8 mg/dL (4.6-5.3) 08/13/20 11:00 Hoyt/IV: Voiding Method Toilet Active Medications - Current Medications Current Medications: Generic Name Dose Route Start Last Admin Trade Name Freq PRN Reason Stop Dose Admin Acetaminophen 650 mg 08/11/20 02:31 Acetaminophen 325 Mg Tab PO Q4H PRN Pain MILD(1-3)/Fever >100.5/MOTTA Albuterol 2.5 mg 08/11/20 15:58 08/12/20 15:30 Albuterol 2.5 Mg/3 Ml Nebu IH 2.5 mg Q4H PRN Administration Shortness Of Breath Alprazolam 0.25 mg 08/13/20 10:00 Alprazolam 0.25 Mg Tab PO Q8H PRN Anxiety Arformoterol Tartrate 15 mcg 08/11/20 20:00 08/13/20 07:55 Arformoterol 15 Mcg/2 Ml Nebu IH 15 mcg Q12HRT KIMBERLY Administration Budesonide 0.5 mg 08/11/20 20:00 08/13/20 07:55 Budesonide 0.5 Mg/2 Ml Nebu IH 0.5 mg Q12HRT KIMBERLY Administration Famotidine 20 mg 08/11/20 22:00 08/12/20 21:59 Famotidine 20 Mg Tab PO 20 mg QHS KIMBERLY Administration Heparin Sodium (Porcine) 5,000 unit 08/11/20 14:00 08/13/20 06:27 Heparin 5,000 Unit/1 Ml Vial SUB-Q 5,000 unit Q8HR KIMBERLY Administration Magnesium Hydroxide 30 ml 08/11/20 02:31 Magnesium Hydroxide (Mom) Oral Liqd Udc PO Q4H PRN Constipation Methylprednisolone Sodium Succinate 60 mg 08/13/20 12:00 Methylprednisolone Sod Succinate 125 Mg/2 Ml Inj IV Q6HR KIMBERLY Morphine Sulfate 2 mg 08/11/20 02:31 Morphine 2 Mg/1 Ml Inj IV Q4H PRN Pain, Moderate (4-6) Ondansetron HCl 4 mg 08/11/20 02:31 Ondansetron 4 Mg/2 Ml Inj IV Q8H PRN Nausea And Vomiting Sodium Chloride 10 ml 08/11/20 10:00 08/12/20 21:59 Sodium Chloride 0.9% 10 Ml Flush Syringe IV 10 ml BID KIMBERLY Administration Sodium Chloride 10 ml 08/11/20 02:31 Sodium Chloride 0.9% 10 Ml Flush Syringe IV PRN PRN LINE FLUSH Nutrition/Malnutrition Assess - Dietary Evaluation Nutrition/Malnutrition Findings: Nutrition Notes Start: 08/12/20 15:44 Freq: Status: Active Protocol: Document 08/12/20 15:44 LOKI (Rec: 08/12/20 15:52 LOKI [id number]) Nutrition Notes Need for Assessment generated from: MD Order Initial or Follow up Assessment Current Diagnosis COPD,Hypertension Other Pertinent Diagnosis COPD exacerbation, adult FTT Current Diet Regular Labs/Tests Reviewed Pertinent Medications Solumedrol Height 5 ft 1 in Weight 43.8 kg Usual Body Weight 54.5 kg [place] Body Weight (kg) 47.72 BMI 18.2 Weight change and time frame Pt reports wt of 120# ~3 yrs ago (before she "got sick") Weight Status Underweight Subjective/Other Information RD consulted for malnutrition. Pt reports good appetite, but finds it difficult to eat when she has breathing problems. Reports no chewing or swallowing difficulties. She request ONS. Burn Absent Trauma Absent Minimum of two criteria Yes Interpretation of Weight Loss (severe) > 20% in 1 year Body Fat Depletion Moderate depletion (severe) Muscle Mass Moderate Depletion (severe) Protein-Calorie Malnutrition Severe #1 Nutrition Diagnosis Malnutrition Etiology hx of COPD, inadequate oral intake at times As Evidenced by Signs and Symptoms BMI 18.2, subcutaneous fat loss, muscle loss, unintentional wt loss Is patient on ventilator? No Is Patient Ambulatory and/or Out of Bed No REE-([facility]-confined to bed) 1127.880 Kcal/Kg value to use for calculation 35 Approximate Energy Requirements Using 1533 kcal/Kg Calculation Used for Recommendations Kcal/kg Additional Notes Pro needs 1.2-1.5g/k-66g/ day Fluid needs 1ml/kcal Nutrition Intervention Change Diet Order: Continue current diet order Add Supplement/Snack (indicate name/kcal Ensure Enlive TID (strawberry) /protein ) Provides kCal: 1,050 Provides Protein (gm) 60 Goal #1 PO intake of meals plus ONS to meet 100% energy and pro needs Goal #2 Wt maintenance and/or gain Anticipated Discharge Needs: Continue ONS 2-3 times daily for wt maintenance Follow-Up By: 08/14/20 Additional Comments F/U: intakes (meals/ONS)
[2020-08-13] MEDS ORDERED: methylPREDNISolone Sod Succinate 40 MG/1 ML INJ IV SCH (12:00)
[2020-08-13] MEDS: ALBUTEROL 2.5 MG/3 ML NEBU IH PRN (13:12)
--- NOTE | 2020-08-13 17:46 | Electrocardiograph Report ---
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
[2020-08-13] MEDS: FAMOTIDINE 20 MG TAB PO SCH (21:47)
--- NOTE | 2020-08-13 22:01 | Progress Note ---
Assessment and Plan 64-year-old female with known history of COPD and hypertension brought into the emergency room for evaluation of shortness of breath which has been ongoing for the past 2 days. Patient has been using her nebulizer treatment without any si gnificant improvement and she also indicates she has been wheezing. Patient is on oxygen at home 3 L. She received nebulizing treatment with DuoNeb, magnesium sulfate and Solu-Medrol via EMS with some improvement. She denies any fever or chills, no chest pain, no nausea vomiting, no abdominal pain, no headache or dizziness, no diaphoresis. She has had some mild cough which is nonproductive. Patient denies any sick contacts and no recent travel. Denies any contact with anyone with COVID-19. Upon arrival in the emergency room she was quite tachycardic, tachypneic and hypoxic and subsequently placed on BiPAP. Patient admitted for COPD exacerbation. Patient is alert and awake and anxious. Patient resting on 4L O2. O2 saturation running 97%. BiPAP 14/8, rate 20, FiO2 40% STANDBY in room. ABG on room air ABG pH 7.440 (7.320-7.450) 08/13/20 11:00 POC ABG pCO2 38.0 mmHg (32.0-48.0) 08/13/20 11:00 POC ABG pO2 60.7 mmHg (83-108) L 08/13/20 11:00 POC ABG HCO3 25.2 08/13/20 11:00 ABG O2 Saturation 92.1 (0-100) 08/13/20 11:00 Patient is afebrile and has no leukocytosis. Chest x-ray done on 08/10/20 shows no acute abnormality of the chest. Patient is on solumedrol, s/c heparin, famotidine, albuterol aerosol treatment.Brovanna/Budesonide aerosol treatments. - Patient Problems (1) Acute and chronic respiratory failure Current Visit: Yes Status: Acute Plan to address problem: O2 4L via nasal cannula. BIPAP 12/8, FIO2 40%, rate 20 stand by in the room. Continue brovana and budenoside q12 hours. Albuterol aerosol treatments q6 hours PRN for SOB. Continue IV solumedrol. Continue s/c heparin. Continue famotidine. (2) Acute exacerbation of COPD with asthma Current Visit: Yes Status: Acute Plan to address problem: O2 4L via nasal cannula. BIPAP 12/8, FIO2 40%, rate 20 stand by in the room. Continue brovana and budenoside q12 hours. Albuterol aerosol treatments q6 hours PRN for SOB. Continue IV solumedrol. Continue s/c heparin. Continue famotidine. PFT's as outpatient. (3) ISAC (acute kidney injury) Current Visit: No Status: Acute Plan to address problem: Management as per nephrology. (4) Acute chest pain Current Visit: No Status: Acute Plan to address problem: Management as per primary care. (5) Hypertension Current Visit: No Status: Chronic Qualifiers: Plan to address problem: Management as per primary care. Subjective Date of service: 08/13/20 Interval history: 64-year-old female with known history of COPD and hypertension brought into the emergency room for evaluation of shortness of breath which has been ongoing for the past 2 days. Patient has been using her nebulizer treatment without any significant improvement and she also indicates she has been wheezing. Patient is on oxygen at home 3 L. She received nebulizing treatment with DuoNeb, magnesium sulfate and Solu-Medrol via EMS with some improvement. She denies any fever or chills, no chest pain, no nausea vomiting, no abdominal pain, no headache or dizziness, no diaphoresis. She has had some mild cough which is nonproductive. Patient denies any sick contacts and no recent travel. Denies any contact with anyone with COVID-19. Upon arrival in the emergency room she was quite tachycardic, tachypneic and hypoxic and subsequently placed on BiPAP. Patient admitted for COPD exacerbation. Patient is alert and awake and anxious. Patient resting on 4L O2. O2 saturation running 97%. BiPAP 14/8, rate 20, FiO2 40% STANDBY in room. ABG on room air ABG pH 7.440 (7.320-7.450) 08/13/20 11:00 POC ABG pCO2 38.0 mmHg (32.0-48.0) 08/13/20 11:00 POC ABG pO2 60.7 mmHg (83-108) L 08/13/20 11:00 POC ABG HCO3 25.2 08/13/20 11:00 ABG O2 Saturation 92.1 (0-100) 08/13/20 11:00 Patient is afebrile and has no leukocytosis. Chest x-ray done on 08/10/20 shows no acute abnormality of the chest. Patient is on solumedrol, s/c heparin, famotidine, albuterol aerosol treatment.Brovanna/Budesonide aerosol treatments. Objective Vital Signs - 12hr 08/13/20 08/13/20 08/13/20 07:55 08:00 08:05 Temperature Pulse Rate Pulse Rate [ 95 H Bilateral Throughout] Respiratory 28 H Rate Respiratory 22 Rate [Bilateral Throughout] Blood Pressure Blood Pressure [Left] O2 Sat by Pulse 93 98 Oximetry 08/13/20 08/13/20 08/13/20 08:08 08:32 11:15 Temperature 98.3 F 98.6 F Pulse Rate 88 78 82 Pulse Rate [ Bilateral Throughout] Respiratory 34 H 18 20 Rate Respiratory Rate [Bilateral Throughout] Blood Pressure 153/103 Blood Pressure 157/96 [Left] O2 Sat by Pulse 100 99 Oximetry 08/13/20 08/13/20 08/13/20 13:12 13:22 14:00 Temperature Pulse Rate 92 H 96 H Pulse Rate [ 85 Bilateral Throughout] Respiratory 30 H Rate Respiratory 20 Rate [Bilateral Throughout] Blood Pressure Blood Pressure [Left] O2 Sat by Pulse 99 Oximetry 08/13/20 16:20 Temperature 98.3 F Pulse Rate 96 H Pulse Rate [ Bilateral Throughout] Respiratory 20 Rate Respiratory Rate [Bilateral Throughout] Blood Pressure Blood Pressure 167/99 [Left] O2 Sat by Pulse Oximetry Constitutional: no acute distress, alert, other (anxious) Eyes: non-icteric ENT: oropharynx moist Neck: supple Effort: normal Ascultation: Bilateral: other (prolonged expiratory phase) Cardiovascular: regular rate and rhythm Gastrointestinal: normoactive bowel sounds, non-distended Integumentary: normal Extremities: no cyanosis Neurologic: normal mental status, non-focal exam Psychiatric: mood appropriate, affect normal, anxious CBC and BMP: 08/12/20 06:01 08/12/20 06:01 ABG, PT/INR, D-dimer: ABG ABG pH 7.440 (7.320-7.450) 08/13/20 11:00 POC ABG pCO2 38.0 mmHg (32.0-48.0) 08/13/20 11:00 POC ABG pO2 60.7 mmHg (83-108) L 08/13/20 11:00 POC ABG HCO3 25.2 08/13/20 11:00 ABG O2 Saturation 92.1 (0-100) 08/13/20 11:00 PT/INR, D-dimer PT 13.3 Sec. (12.2-14.9) 08/12/20 06:01 INR 1.02 (0.87-1.13) 08/12/20 06:01 Abnormal lab findings: Abnormal Labs 08/10/20 08/10/20 08/12/20 22:47 22:47 06:01 Hct 43.5 H Lymph % (Auto) 12.2 L Lymph # (Auto) 0.8 L Seg Neutrophils % 80.6 H POC ABG pO2 ABG Oxyhemoglobin BUN Glucose 102 H 08/12/20 08/13/20 06:01 11:00 Hct Lymph % (Auto) Lymph # (Auto) Seg Neutrophils % POC ABG pO2 60.7 L ABG Oxyhemoglobin 91.4 L BUN 19 H Glucose 108 H
[2020-08-14] MEDS: methylPREDNISolone Sod Succinate 125 MG/2 ML INJ IV SCH ×5 (02:59→21:31)
[2020-08-14] MEDS: HEPARIN 5,000 UNIT/1 ML VIAL SUB-Q SCH ×3 (05:09→21:31)
[2020-08-14] MEDS: BUDESONIDE 0.5 MG/2 ML NEBU IH SCH ×2 (09:47→20:49)
[2020-08-14] MEDS: ARFORMOTEROL 15 MCG/2 ML NEBU IH SCH ×2 (09:47→20:49)
--- NOTE | 2020-08-14 11:16 | Progress Note ---
Assessment and Plan Assessment and plan: Acute hypoxic respiratory failure COPD exacerbation Tobacco use disorder Adult failure to thrive severe protein calorie malnutrition Non compliance Plan Continue oxygen supplementation. Now on 5 L of oxygen. Uses 3 L of oxygen at home Continue Solu-Medrol Check COVID-19 due to hypoxia Continue supportive care Tobacco use counselling for 35 mins [employer] Operator evaluation Pulmonary input noted and continue management with steroids, nebs Discussed in IDT rounds with Case management History Interval history: 64-year-old female with known history of COPD and hypertension brought into the emergency room today for evaluation of shortness of breath which has been ongoing for the past 2 days. Patient has been using her nebulizer treatment without any significant improvement and she also indicates she has been wheezing. Patient is on oxygen at home 3 L. She received nebulizing treatment with DuoNeb, magnesium sulfate and Solu-Medrol via EMS with some improvement. She denies any fever or chills, no chest pain, no nausea vomiting, no abdominal pain, no headache or dizziness, no diaphoresis. She has had some mild cough which is nonproductive. Patient denies any sick contacts and no recent travel. Denies any contact with anyone with COVID-19. Upon arrival in the emergency room she was quite tachycardic, tachypneic and hypoxic and subsequently placed on BiPAP. Work-up in the emergency room today chest x-ray did not reveal any acute abnormality. Patient admitted with COPD exacerbation. Hospital course 08/13. Patient seen and examined at bedside this morning. Has diminished breath sounds on examination with minimal wheeze. Placed on BiPAP overnight for worsening shortness of breath. Complains of having panic attack. Patient started on low-dose Xanax. Increase steroids. Continue to monitor for now 08/14. Breathing is better today. Now off BiPAP. Continue steroids. Pulmonology following closely Hospitalist Physical - Physical exam Narrative exam: VITAL SIGNS: Reviewed. GENERAL: Awake HEAD: No signs of head trauma. EYES: Pupils are equal. Extraocular motions intact. MOUTH: Oropharynx is normal. NECK: No adenopathy, no JVD. CHEST: Diminished breath sounds bilaterally CARDIAC: normal S1 and S2, without murmurs, gallops, or rubs. ABDOMEN: Soft, non tender and non distended. No rebound or guarding, and no masses palpated. Bowel Sounds normal. MUSCULOSKELETAL: No edema NEUROLOGIC EXAM: Alert and oriented x3. No focal neurologic deficits SKIN: No obvious lesions - Constitutional Vitals: Temp Pulse Resp BP Pulse Ox 98.5 F 97 H 20 184/102 99 08/14/20 04:42 08/14/20 09:47 08/14/20 09:47 08/14/20 04:42 08/14/20 06:01 HEART Score - HEART Score Troponin: Troponin T < 0.010 ng/mL (0.00-0.029) 08/10/20 22:47 Results - Labs CBC & Chem 7: 08/12/20 06:01 08/12/20 06:01 Labs: Laboratory Last Values WBC 6.9 K/mm3 (4.5-11.0) 08/12/20 06:01 RBC 4.02 M/mm3 (3.65-5.03) 08/12/20 06:01 Hgb 11.4 gm/dl (10.1-14.3) 08/12/20 06:01 Hct 34.4 % (30.3-42.9) D 08/12/20 06:01 MCV 86 fl (79-97) 08/12/20 06:01 MCH 28 pg (28-32) 08/12/20 06:01 MCHC 33 % (30-34) 08/12/20 06:01 RDW 13.7 % (13.2-15.2) 08/12/20 06:01 Plt Count 243 K/mm3 (140-440) 08/12/20 06:01 Lymph % (Auto) 12.2 % (13.4-35.0) L 08/12/20 06:01 [place] % (Auto) 7.1 % (0.0-7.3) 08/12/20 06:01 Eos % (Auto) 0.0 % (0.0-4.3) 08/12/20 06:01 Baso % (Auto) 0.1 % (0.0-1.8) 08/12/20 06:01 Lymph # (Auto) 0.8 K/mm3 (1.2-5.4) L 08/12/20 06:01 [place] # (Auto) 0.5 K/mm3 (0.0-0.8) 08/12/20 06:01 Eos # (Auto) 0.0 K/mm3 (0.0-0.4) 08/12/20 06:01 Baso # (Auto) 0.0 K/mm3 (0.0-0.1) 08/12/20 06:01 Seg Neutrophils % 80.6 % (40.0-70.0) H 08/12/20 06:01 Seg Neutrophils # 5.6 K/mm3 (1.8-7.7) 08/12/20 06:01 PT 13.3 Sec. (12.2-14.9) 08/12/20 06:01 INR 1.02 (0.87-1.13) 08/12/20 06:01 APTT 26.0 Sec. (24.2-36.6) 08/10/20 22:47 ABG pH 7.440 (7.320-7.450) 08/13/20 11:00 POC ABG pCO2 38.0 mmHg (32.0-48.0) 08/13/20 11:00 POC ABG pO2 60.7 mmHg (83-108) L 08/13/20 11:00 POC ABG HCO3 25.2 08/13/20 11:00 ABG O2 Saturation 92.1 (0-100) 08/13/20 11:00 POC ABG Base Excess 1.2 08/13/20 11:00 ABG Hemoglobin 12.0 (12.0-17.5) 08/13/20 11:00 ABG Oxyhemoglobin 91.4 (94-98) L 08/13/20 11:00 ABG Methemoglobin 0.3 (0.0-1.5) 08/13/20 11:00 ABG Sodium 139.0 mmol/L (136.0-145.0) 08/13/20 11:00 ABG Potassium 4.1 mmol/L (3.40-4.50) 08/13/20 11:00 ABG Chloride 105.0 mmol/L (98-107) 08/13/20 11:00 ABG Glucose 89 mg/dL (65-95) 08/13/20 11:00 Carboxyhemoglobin 0.5 (0.5-1.5) 08/13/20 11:00 FiO2 % 21.0 08/13/20 11:00 Sodium 139 mmol/L (137-145) 08/12/20 06:01 Potassium 4.3 mmol/L (3.6-5.0) 08/12/20 06:01 Chloride 102.2 mmol/L (98-107) 08/12/20 06:01 Carbon Dioxide 28 mmol/L (22-30) 08/12/20 06:01 Anion Gap 13 mmol/L 08/12/20 06:01 BUN 19 mg/dL (7-17) H 08/12/20 06:01 Creatinine 0.7 mg/dL (0.6-1.2) 08/12/20 06:01 Estimated GFR > 60 ml/min 08/12/20 06:01 BUN/Creatinine Ratio 27 % 08/12/20 06:01 Glucose 108 mg/dL (65-100) H 08/12/20 06:01 Lactic Acid 1.20 mmol/L (0.7-2.0) 08/10/20 22:47 Calcium 8.7 mg/dL (8.4-10.2) 08/12/20 06:01 Total Bilirubin 0.40 mg/dL (0.1-1.2) 08/10/20 22:47 Direct Bilirubin < 0.2 mg/dL (0-0.2) 08/10/20 22:47 Indirect Bilirubin 0.2 mg/dL 08/10/20 22:47 AST 25 units/L (5-40) 08/10/20 22:47 ALT 17 units/L (7-56) 08/10/20 22:47 Alkaline Phosphatase 90 units/L (35-129) 08/10/20 22:47 Troponin T < 0.010 ng/mL (0.00-0.029) 08/10/20 22:47 NT-Pro-B Natriuret Pep 94.21 pg/mL (0-900) 08/10/20 22:47 Total Protein 6.5 g/dL (6.3-8.2) 08/10/20 22:47 Albumin 4.5 g/dL (3.9-5) 08/10/20 22:47 Albumin/Globulin Ratio 2.3 % 08/10/20 22:47 Arterial Blood Glucose 89 mg/dL (65-95) 08/13/20 11:00 Arterial Blood Ionized Calcium 4.8 mg/dL (4.6-5.3) 08/13/20 11:00 Hoyt/IV: Voiding Method Toilet Active Medications - Current Medications Current Medications: Generic Name Dose Route Start Last Admin Trade Name Freq PRN Reason Stop Dose Admin Acetaminophen 650 mg 08/11/20 02:31 Acetaminophen 325 Mg Tab PO Q4H PRN Pain MILD(1-3)/Fever >100.5/MOTTA Albuterol 2.5 mg 08/11/20 15:58 08/13/20 13:12 Albuterol 2.5 Mg/3 Ml Nebu IH 2.5 mg Q4H PRN Administration Shortness Of Breath Alprazolam 0.25 mg 08/13/20 10:00 08/13/20 21:47 Alprazolam 0.25 Mg Tab PO 0.25 mg Q8H PRN Administration Anxiety Arformoterol Tartrate 15 mcg 08/11/20 20:00 08/14/20 09:47 Arformoterol 15 Mcg/2 Ml Nebu IH 15 mcg Q12HRT KIMBERLY Administration Budesonide 0.5 mg 08/11/20 20:00 08/14/20 09:47 Budesonide 0.5 Mg/2 Ml Nebu IH 0.5 mg Q12HRT KIMBERLY Administration Famotidine 20 mg 08/11/20 22:00 08/13/20 21:47 Famotidine 20 Mg Tab PO 20 mg QHS KIMBERLY Administration Heparin Sodium (Porcine) 5,000 unit 08/11/20 14:00 08/14/20 05:09 Heparin 5,000 Unit/1 Ml Vial SUB-Q 5,000 unit Q8HR KIMBERLY Administration Magnesium Hydroxide 30 ml 08/11/20 02:31 Magnesium Hydroxide (Mom) Oral Liqd Udc PO Q4H PRN Constipation Methylprednisolone Sodium Succinate 60 mg 08/13/20 12:00 08/14/20 05:09 Methylprednisolone Sod Succinate 125 Mg/2 Ml Inj IV 60 mg Q6HR KIMBERLY Administration Morphine Sulfate 2 mg 08/11/20 02:31 Morphine 2 Mg/1 Ml Inj IV Q4H PRN Pain, Moderate (4-6) Nifedipine 60 mg 08/14/20 10:00 Nifedipine Xl 60 Mg Tab PO Q12HR KIMBERLY Ondansetron HCl 4 mg 08/11/20 02:31 Ondansetron 4 Mg/2 Ml Inj IV Q8H PRN Nausea And Vomiting Sodium Chloride 10 ml 08/11/20 10:00 08/13/20 21:48 Sodium Chloride 0.9% 10 Ml Flush Syringe IV 10 ml BID KIMBERLY Administration Sodium Chloride 10 ml 08/11/20 02:31 Sodium Chloride 0.9% 10 Ml Flush Syringe IV PRN PRN LINE FLUSH Valsartan 80 mg 08/14/20 10:00 Valsartan 40 Mg Tab PO QDAY KIMBERLY Nutrition/Malnutrition Assess - Dietary Evaluation Nutrition/Malnutrition Findings: Nutrition Notes Start: 08/12/20 15:44 Freq: Status: Active Protocol: Document 08/12/20 15:44 LOKI (Rec: 08/12/20 15:52 NHALL [id number]) Nutrition Notes Need for Assessment generated from: MD Order Initial or Follow up Assessment Current Diagnosis COPD,Hypertension Other Pertinent Diagnosis COPD exacerbation, adult FTT Current Diet Regular Labs/Tests Reviewed Pertinent Medications Solumedrol Height 5 ft 1 in Weight 43.8 kg Usual Body Weight 54.5 kg [place] Body Weight (kg) 47.72 BMI 18.2 Weight change and time frame Pt reports wt of 120# ~3 yrs ago (before she "got sick") Weight Status Underweight Subjective/Other Information RD consulted for malnutrition. Pt reports good appetite, but finds it difficult to eat when she has breathing problems. Reports no chewing or swallowing difficulties. She request ONS. Burn Absent Trauma Absent Minimum of two criteria Yes Interpretation of Weight Loss (severe) > 20% in 1 year Body Fat Depletion Moderate depletion (severe) Muscle Mass Moderate Depletion (severe) Protein-Calorie Malnutrition Severe #1 Nutrition Diagnosis Malnutrition Etiology hx of COPD, inadequate oral intake at times As Evidenced by Signs and Symptoms BMI 18.2, subcutaneous fat loss, muscle loss, unintentional wt loss Is patient on ventilator? No Is Patient Ambulatory and/or Out of Bed No REE-([place]-confined to bed) 1127.880 Kcal/Kg value to use for calculation 35 Approximate Energy Requirements Using 1533 kcal/Kg Calculation Used for Recommendations Kcal/kg Additional Notes Pro needs 1.2-1.5g/k-66g/ day Fluid needs 1ml/kcal Nutrition Intervention Change Diet Order: Continue current diet order Add Supplement/Snack (indicate name/kcal Ensure Enlive TID (strawberry) /protein ) Provides kCal: 1,050 Provides Protein (gm) 60 Goal #1 PO intake of meals plus ONS to meet 100% energy and pro needs Goal #2 Wt maintenance and/or gain Anticipated Discharge Needs: Continue ONS 2-3 times daily for wt maintenance Follow-Up By: 08/14/20 Additional Comments F/U: intakes (meals/ONS)
[2020-08-14] MEDS: VALSARTAN 40 MG TAB PO SCH (11:23)
[2020-08-14] MEDS: ALPRAZolam 0.25 MG TAB PO PRN (11:23)
[2020-08-14] MEDS: NIFEdipine XL 60 MG TAB PO SCH ×2 (11:23→21:32)
[2020-08-14] MEDS: FAMOTIDINE 20 MG TAB PO SCH (21:31)
--- NOTE | 2020-08-15 00:25 | Progress Note ---
Assessment and Plan 64-year-old female with known history of COPD and hypertension brought into the emergency room for evaluation of shortness of breath which has been ongoing for the past 2 days. Patient has been using her nebulizer treatment without any si gnificant improvement and she also indicates she has been wheezing. Patient is on oxygen at home 3 L. She received nebulizing treatment with DuoNeb, magnesium sulfate and Solu-Medrol via EMS with some improvement. She denies any fever or chills, no chest pain, no nausea vomiting, no abdominal pain, no headache or dizziness, no diaphoresis. She has had some mild cough which is nonproductive. Patient denies any sick contacts and no recent travel. Denies any contact with anyone with COVID-19. Upon arrival in the emergency room she was quite tachycardic, tachypneic and hypoxic and subsequently placed on BiPAP. Patient admitted for COPD exacerbation. Patient is sleeping at this time. Patient resting on 5L O2. O2 saturation running 99%. BiPAP 14/8, rate 20, FiO2 40% STANDBY in room. ABG on room air ABG pH 7.440 (7.320-7.450) 08/13/20 11:00 POC ABG pCO2 38.0 mmHg (32.0-48.0) 08/13/20 11:00 POC ABG pO2 60.7 mmHg (83-108) L 08/13/20 11:00 POC ABG HCO3 25.2 08/13/20 11:00 ABG O2 Saturation 92.1 (0-100) 08/13/20 11:00 Patient is afebrile and has no leukocytosis. Chest x-ray done on 08/10/20 shows no acute abnormality of the chest. Patient is on solumedrol, s/c heparin, famotidine, albuterol aerosol treatment.Brovanna/Budesonide aerosol treatments. - Patient Problems (1) Acute and chronic respiratory failure Current Visit: Yes Status: Acute Plan to address problem: O2 5L via nasal cannula. BIPAP 12/8, FIO2 40%, rate 20 stand by in the room. Continue brovana and budenoside q12 hours. Albuterol aerosol treatments q6 hours PRN for SOB. Continue IV solumedrol. Continue s/c heparin. Continue famotidine. (2) Acute exacerbation of COPD with asthma Current Visit: Yes Status: Acute Plan to address problem: O2 5L via nasal cannula. BIPAP 12/8, FIO2 40%, rate 20 stand by in the room. Continue brovana and budenoside q12 hours. Albuterol aerosol treatments q6 hours PRN for SOB. Continue IV solumedrol. Continue s/c heparin. Continue famotidine. PFT's as outpatient. (3) ISAC (acute kidney injury) Current Visit: No Status: Acute Plan to address problem: Management as per nephrology. (4) Acute chest pain Current Visit: No Status: Acute Plan to address problem: Management as per primary care. (5) Hypertension Current Visit: No Status: Chronic Qualifiers: Plan to address problem: Management as per primary care. Subjective Date of service: 08/14/20 Interval history: 64-year-old female with known history of COPD and hypertension brought into the emergency room for evaluation of shortness of breath which has been ongoing for the past 2 days. Patient has been using her nebulizer treatment without any significant improvement and she also indicates she has been wheezing. Patient is on oxygen at home 3 L. She received nebulizing treatment with DuoNeb, magnesium sulfate and Solu-Medrol via EMS with some improvement. She denies any fever or chills, no chest pain, no nausea vomiting, no abdominal pain, no headache or dizziness, no diaphoresis. She has had some mild cough which is nonproductive. Patient denies any sick contacts and no recent travel. Denies any contact with anyone with COVID-19. Upon arrival in the emergency room she was quite tachycardic, tachypneic and hypoxic and subsequently placed on BiPAP. Patient admitted for COPD exacerbation. Patient is sleeping at this time. Patient resting on 5L O2. O2 saturation running 99%. BiPAP 14/8, rate 20, FiO2 40% STANDBY in room. ABG on room air ABG pH 7.440 (7.320-7.450) 08/13/20 11:00 POC ABG pCO2 38.0 mmHg (32.0-48.0) 08/13/20 11:00 POC ABG pO2 60.7 mmHg (83-108) L 08/13/20 11:00 POC ABG HCO3 25.2 08/13/20 11:00 ABG O2 Saturation 92.1 (0-100) 08/13/20 11:00 Patient is afebrile and has no leukocytosis. Chest x-ray done on 08/10/20 shows no acute abnormality of the chest. Patient is on solumedrol, s/c heparin, famotidine, albuterol aerosol treatment.B rovanna/Budesonide aerosol treatments. Objective Vital Signs - 12hr 08/14/20 08/14/20 08/14/20 04:42 06:01 09:47 Temperature 98.5 F Pulse Rate 82 Pulse Rate [ 97 H Bilateral Throughout] Respiratory 19 Rate Respiratory 20 Rate [Bilateral Throughout] Blood Pressure 184/102 Blood Pressure [Left] O2 Sat by Pulse 99 99 Oximetry 08/14/20 12:26 Temperature 98.4 F Pulse Rate 85 Pulse Rate [ Bilateral Throughout] Respiratory 20 Rate Respiratory Rate [Bilateral Throughout] Blood Pressure Blood Pressure 160/101 [Left] O2 Sat by Pulse Oximetry Constitutional: no acute distress, asleep Eyes: non-icteric ENT: oropharynx moist Neck: supple Effort: normal Ascultation: Bilateral: other (prolonged expiratory phase) Cardiovascular: regular rate and rhythm Gastrointestinal: normoactive bowel sounds, non-distended Integumentary: normal Extremities: no cyanosis Neurologic: normal mental status, non-focal exam Psychiatric: mood appropriate, affect normal, anxious CBC and BMP: 08/12/20 06:01 08/12/20 06:01 ABG, PT/INR, D-dimer: ABG ABG pH 7.440 (7.320-7.450) 08/13/20 11:00 POC ABG pCO2 38.0 mmHg (32.0-48.0) 08/13/20 11:00 POC ABG pO2 60.7 mmHg (83-108) L 08/13/20 11:00 POC ABG HCO3 25.2 08/13/20 11:00 ABG O2 Saturation 92.1 (0-100) 08/13/20 11:00 PT/INR, D-dimer PT 13.3 Sec. (12.2-14.9) 08/12/20 06:01 INR 1.02 (0.87-1.13) 08/12/20 06:01 Abnormal lab findings: Abnormal Labs 05/15/21 05/15/21 05/17/21 22:47 22:47 06:01 Hct 43.5 H Lymph % (Auto) 12.2 L Lymph # (Auto) 0.8 L Seg Neutrophils % 80.6 H POC ABG pO2 ABG Oxyhemoglobin BUN Glucose 102 H 08/12/20 08/13/20 06:01 11:00 Hct Lymph % (Auto) Lymph # (Auto) Seg Neutrophils % POC ABG pO2 60.7 L ABG Oxyhemoglobin 91.4 L BUN 19 H Glucose 108 H
[2020-08-15] MEDS: methylPREDNISolone Sod Succinate 125 MG/2 ML INJ IV SCH ×2 (02:38→05:17)
[2020-08-15] MEDS: HEPARIN 5,000 UNIT/1 ML VIAL SUB-Q SCH (05:17)
[2020-08-15] MEDS: BUDESONIDE 0.5 MG/2 ML NEBU IH SCH (08:58)
[2020-08-15] MEDS: ARFORMOTEROL 15 MCG/2 ML NEBU IH SCH (08:58)
[2020-08-15] MEDS: VALSARTAN 40 MG TAB PO SCH (10:29)
[2020-08-15] MEDS: NIFEdipine XL 60 MG TAB PO SCH (10:30)
--- NOTE | 2020-08-15 12:06 | Discharge Summary ---
Providers - Providers Date of Admission: 08/11/20 00:27 Date of discharge: 08/15/20 Attending physician: KARLEY CROUCH 08/11/20 02:31 Consult to Physician [CONS] Routine Comment: Consulting Provider: ABBI LOYD Physician Instructions: Reason For Exam: COPD EXAC. RESP. FAILURE 08/12/20 11:33 Consult to Dietitian/Nutrition [CONS] Routine Physician Instructions: Reason For Exam: Reason for Consult: Malnutrition 08/13/20 12:53 Physical Therapy Evaluation and Treat [CONS] Routine Comment: Please evaluate for DME needs Reason For Exam: Debility Primary care physician: POMOLOGY TEACHER Hospitalization Condition: Stable Hospital course: 64-year-old female with known history of COPD and hypertension brought into the emergency room today for evaluation of shortness of breath which has been ongoing for the past 2 days. Patient has been using her nebulizer treatment without any significant improvement and she also indicates she has been wheezing. Patient is on oxygen at home 3 L. She received nebulizing treatment with DuoNeb, magnesium sulfate and Solu-Medrol via EMS with some improvement. She denies any fever or chills, no chest pain, no nausea vomiting, no abdominal pain, no headache or dizziness, no diaphoresis. She has had some mild cough which is nonproductive. Patient denies any sick contacts and no recent travel. Denies any contact with anyone with COVID-19. Upon arrival in the emergency room she was quite tachycardic, tachypneic and hypoxic and subsequently placed on BiPAP. Work-up in the emergency room today chest x-ray did not reveal any acute abnormality. Patient admitted with COPD exacerbation. Hospital course 08/13. Patient seen and examined at bedside this morning. Has diminished breath sounds on examination with minimal wheeze. Placed on BiPAP overnight for worsening shortness of breath. Complains of having panic attack. Patient started on low-dose Xanax. Increase steroids. Continue to monitor for now 08/14. Breathing is better today. Now off BiPAP. Continue steroids. Pulmonology following closely 08/15. Has no complaints. Now on 3 L of oxygen. Should discharge on tapering dose of steroids. She will follow-up with pulmonology. She agrees with treatment Disposition: TO HOME OR SELFCARE Final Discharge Diagnosis (Prints w/discharge instructions): Acute on chronic hypoxic respiratory failure secondary to COPD Time spent for discharge: 35 minutes Core Measure Documentation - Palliative Care Palliative Care/ Comfort Measures: Not Applicable - Core Measures Any of the following diagnoses?: none Exam - Physical Exam Narrative exam: VITAL SIGNS: Reviewed. GENERAL: Awake HEAD: No signs of head trauma. EYES: Pupils are equal. Extraocular motions intact. MOUTH: Oropharynx is normal. NECK: No adenopathy, no JVD. CHEST: Diminished breath sounds bilaterally CARDIAC: normal S1 and S2, without murmurs, gallops, or rubs. ABDOMEN: Soft, non tender and non distended. No rebound or guarding, and no masses palpated. Bowel Sounds normal. MUSCULOSKELETAL: No edema NEUROLOGIC EXAM: Alert and oriented x3. No focal neurologic deficits SKIN: No obvious lesions - Constitutional Vitals: Temp Pulse Resp BP Pulse Ox 98.6 F 87 22 137/90 94 08/15/20 08:28 08/15/20 10:29 08/15/20 08:58 08/15/20 08:28 08/15/20 09:01 Plan Diet: low fat, low cholesterol, low salt Additional Instructions: Continue steroids taper. Follow up with pulmonology in the office in 1-2 weeks Follow up with: PRIMARY CARE, [Primary Care Provider] - 3-5 Days Prescriptions: predniSONE [Deltasone] 40 mg PO BID 3 Days #12 tab predniSONE [Deltasone] 20 mg PO BID 3 Days #6 tab Valsartan [Diovan] 80 mg PO QDAY #60 tablet predniSONE 20 mg PO BID 3 Days #12 tab
[2020-08-15 17:04] VITALS: BP 112/72
== END 2020-08-15 17:30 | disposition home health service (06) | DRG 189 ==
LOC: ED 22:22 → 4A 08-11 00:27
PROVIDERS: ADMIT Internal Medicine Geriatric Medicine; ATTEND Internal Medicine
PROC: 5A09457 Assistance with Respiratory Ventilation, 24-96 Consecutive Hours, Continuous Positive Airway Pressure (ICD-10-PCS; principal; 2020-08-11)
PROC: 4A033R1 Measurement of Arterial Saturation, Peripheral, Percutaneous Approach (ICD-10-PCS; 2020-08-11)
DX: J96.21 Acute and chronic respiratory failure with hypoxia (principal); J44.1 Chronic obstructive pulmonary disease with (acute) exacerbation; J45.909 Unspecified asthma, uncomplicated; E43 Unspecified severe protein-calorie malnutrition; N17.9 Acute kidney failure, unspecified; R64 Cachexia; F17.210 Nicotine dependence, cigarettes, uncomplicated; Z20.822 Contact with and (suspected) exposure to COVID-19; I10 Essential (primary) hypertension; Z79.899 Other long term (current) drug therapy; Z79.891 Long term (current) use of opiate analgesic; Z79.01 Long term (current) use of anticoagulants; Z99.81 Dependence on supplemental oxygen; Z91.19 Patient's noncompliance with other medical treatment and regimen; Z68.1 Body mass index [BMI] 19.9 or less, adult
CPT/HCPCS: 36415; 36600; 71045; 80048; 80076; 82140; 82805; 83880; 84484; 85025; 85610; 85730; 93005; 94640; 94644; 94660; 96374; G0378; J1644; J2270; J2920; J2930; U0003

== ENCOUNTER 2020-11-03 22:31 | Inpatient (IN) | payer MEDICAID ==
[2020-11-03] MEDS ORDERED: MAGNESIUM SULFATE 2 GM/50 ML BAG IV ONE (22:37)
--- NOTE | 2020-11-03 22:53 | Emergency Department Report ---
HPI - General Time Seen by Provider: 11/03/20 22:35 - HPI HPI: This is a 65-year-old -Citizen Of [place] female presents to the emergency department via EMS from home with complaint of a 2-day history of progressively worsening shortness of breath, wheezing, mixed dry and productive cough. The patient has a history of COPD on 4 L oxygen via nasal cannula, as well as hypertension. When EMS arrived, patient was found to have a pulse ox of 78% and she was tripoding. They were able to get the oxygen saturation up and improve her work of breathing with a CPAP. She was also given albuterol and Solu-Medrol. She denies any fever, chest pain, lower extremity swelling. No recent travel or sick contacts at home. The patient is not vaccinated against COVID-19. No known exposure to anyone with COVID-19. ED Past Medical Hx - Past Medical History Hx Hypertension: Yes Hx CVA: No Hx Heart Attack/AMI: No Hx Congestive Heart Failure: No Hx Diabetes: No Hx Deep Vein Thrombosis: No Hx Pulmonary Embolism: No Hx GERD: No Hx Liver Disease: No Hx Renal Disease: No Hx Sickle Cell Disease: No Hx Arthritis: No Hx Headaches / Migraines: No Hx Seizures: No Hx Kidney Stones: No Hx Psychiatric Treatment: No Hx Asthma: Yes Hx COPD: Yes Hx Tuberculosis: No Hx Dementia: No Hx HIV: No - Surgical History Hx Coronary Stent: No Hx Open Heart Surgery: No Hx Pacemaker: No Hx Internal Defibrillator: No Hx Cholecystectomy: No Hx Appendectomy: No Hx Breast Surgery: No - Social History Smoking Status: Unknown if ever smoked - Medications Home Medications: Home Medications Medication Instructions Recorded Confirmed Last Taken Type Budesonide [Pulmicort Respules] 0.5 mg IH Q12HRT #60 nebu 10/22/18 03/23/19 Unknown Rx Tiotropium [Spiriva] 18 mcg IH QDAY #30 cap 10/22/18 03/23/19 Unknown Rx Loratadine 10 mg PO DAILY 03/23/19 03/23/19 Unknown History Montelukast Sodium 10 mg PO DAILY 03/23/19 03/23/19 Unknown History Pantoprazole 40 mg PO HS 03/23/19 03/23/19 Unknown History Potassium Chloride 10 meq PO DAILY 03/23/19 03/23/19 Unknown History hydroCHLOROthiazide [HCTZ] 12.5 mg PO DAILY 03/23/19 03/23/19 Unknown History ALBUTEROL NEB's [Proventil 0.083% 2.5 mg IH TID PRN #1 box 07/02/20 Unknown Rx NEBS] Albuterol Mdi (or & Nicu Only) 2 puff IH QID PRN #1 inhalation 07/02/20 Unknown Rx [ProAir HFA Inhaler] ALPRAZolam [Xanax TAB] 0.25 mg PO TID PRN #15 tab 08/15/20 Unknown Rx Valsartan [Diovan] 80 mg PO QDAY #60 tablet 08/15/20 Unknown Rx predniSONE 20 mg PO BID 3 Days #12 tab 08/15/20 Unknown Rx predniSONE [Deltasone] 20 mg PO BID 3 Days #6 tab 08/15/20 Unknown Rx predniSONE [Deltasone] 40 mg PO BID 3 Days #12 tab 08/15/20 Unknown Rx ED Review of Systems ROS: Stated complaint: JERMAINE Other details as noted in HPI Comment: All other systems reviewed and negative Constitutional: denies: chills, fever Eyes: denies: eye pain, vision change ENT: denies: ear pain, throat pain Respiratory: cough, shortness of breath, wheezing Cardiovascular: denies: chest pain, palpitations Gastrointestinal: denies: abdominal pain, vomiting Genitourinary: denies: dysuria, discharge Musculoskeletal: denies: back pain, arthralgia Skin: denies: rash, lesions Neurological: denies: headache, weakness Physical Exam - Physical Exam Physical Exam: GENERAL: The patient is ill-appearing. HENT: Normocephalic. Atraumatic. Patient has moist mucous membranes. EYES: Extraocular motions are intact. NECK: Supple. Trachea is midline. CHEST/LUNGS: Decreased breath sounds with some mild wheezing heard. There is tachypnea, accessory muscle use and conversational dyspnea. HEART/CARDIOVASCULAR: Regular. There is mild tachycardia. There is no murmur. ABDOMEN: Abdomen is soft, nontender. Patient has normal bowel sounds. There is no abdominal distention. SKIN: Skin is warm and dry. NEURO: The patient is awake, alert, and oriented. The patient is cooperative. The patient has no focal neurologic deficits. MUSCULOSKELETAL: There is no tenderness or deformity. There is no limitation range of motion. ED Medical Decision Making - Lab Data Result diagrams: 11/03/20 22:45 11/03/20 22:45 Lab Results 11/03/20 11/03/20 11/03/20 Range/Units 22:45 22:45 22:45 WBC 9.6 (4.5-11.0) K/mm3 RBC 5.08 H (3.65-5.03) M/mm3 Hgb 14.6 H (10.1-14.3) gm/dl Hct 43.0 H (30.3-42.9) % MCV 85 (79-97) fl MCH 29 (28-32) pg MCHC 34 (30-34) % RDW 13.8 (13.2-15.2) % Plt Count 270 (140-440) K/mm3 Lymph % (Auto) 13.0 L (13.4-35.0) % [place] % (Auto) 8.6 H (0.0-7.3) % Eos % (Auto) 1.3 (0.0-4.3) % Baso % (Auto) 1.8 (0.0-1.8) % Lymph # (Auto) 1.2 (1.2-5.4) K/mm3 [place] # (Auto) 0.8 (0.0-0.8) K/mm3 Eos # (Auto) 0.1 (0.0-0.4) K/mm3 Baso # (Auto) 0.2 H (0.0-0.1) K/mm3 Seg Neutrophils % 75.3 H (40.0-70.0) % Seg Neutrophils # 7.2 (1.8-7.7) K/mm3 D-Dimer 711.54 H (0-234) ng/mlDDU Sodium 142 (137-145) mmol/L Potassium 4.1 (3.6-5.0) mmol/L Chloride 104.9 (98-107) mmol/L Carbon Dioxide 26 (22-30) mmol/L Anion Gap 15 mmol/L BUN 14 (7-17) mg/dL Creatinine 0.8 (0.6-1.2) mg/dL Estimated GFR > 60 ml/min BUN/Creatinine Ratio 18 % Glucose 101 H (65-100) mg/dL Calcium 9.0 (8.4-10.2) mg/dL Total Bilirubin 0.50 (0.1-1.2) mg/dL AST 16 (5-40) units/L ALT 13 (7-56) units/L Alkaline Phosphatase 85 (35-129) units/L Troponin T < 0.010 (0.00-0.029) ng/mL NT-Pro-B Natriuret Pep 125.2 (0-900) pg/mL Total Protein 6.9 (6.3-8.2) g/dL Albumin 4.4 (3.9-5) g/dL Albumin/Globulin Ratio 1.8 % - EKG Data -: EKG Interpreted by Me EKG shows normal: sinus rhythm, axis, intervals, QRS complexes (LVH), ST-T waves Rate: normal - EKG Data When compared to previous EKG there are: no significant change Interpretation: unchanged when compared t (08/10/20) - Radiology Data Radiology results: report reviewed, image reviewed interpreted by me: Chest x-ray does not show any acute process. There are no pleural effusions, obvious pneumonia and there is no pneumothorax. No widened mediastinum. CTA chest with contrast INDICATION : SOB, elevated dimer. TECHNIQUE: Axial imaging performed through the chest, with contrast bolus timing set to maximize opacification of the pulmonary arteries. 3-plane MIP reformatted images were obtained. All CT scans at this location are performed using CT dose reduction for ALARA by means of automated exposure control. 100 mL of intravenous contrast administered. COMPARISON: CTA chest from 07/01/2020 FINDINGS: Bolus/PTE: Contrast bolus timing is adequate. No filling defect is present to suggest PTE. Mediastinum: Heart and great vessels appear normal. No pathologic mediastinal adenopathy. Lungs: There is moderate emphysema with stable 6 mm nodule in the right upper lobe. Lungs are otherwise clear. Upper abdomen: Limited imaging of the upper abdomen shows nothing acute. Bones: Degenerative changes in the spine with nothing acute. IMPRESSION: 1. Negative for PTE. 2. Stable spiculated nodule in the right upper lobe in this patient with moderate emphysema. Please see below recommendations. - Medical Decision Making This patient presents with a 2-day history of progressively worsening shortness of breath, wheezing and cough. EMS found the patient to be in respiratory distress with tripoding, hypoxia, and she was placed on CPAP and given albuterol and Solu-Medrol. The patient still appears in respiratory distress upon arrival to the emergency department. The patient was placed on BiPAP and given magnesium and then began appearing more comfortable. Chest x-ray does not show any pneumonia, pleural effusions, pneumothorax, widened mediastinum, or any other acute process. The patient's labs have been mostly unremarkable thus far including CBC, metabolic panel, negative troponin, normal proBNP, but the patient did have an elevated and equivocal D-dimer level. For this reason she had a CT angiography of the chest that did not show any pulmonary embolism and shows a stable spiculated nodule of the left upper lobe. The patient will be admitted to the hospital for further evaluation and treatment and was accepted for admission by the hospitalist, Dr. Platt. Critical Care Time: Yes Critical care time in (mins) excluding proc time.: 35 Critical care attestation.: If time is entered above; I have spent that time in minutes in the direct care of this critically ill patient, excluding procedure time. Critical care time was spent on this patient in doing her initial evaluation, multiple reevaluations, ordering and interpretation of labs and imaging, BiPAP management for the patient's respiratory distress and hypoxia, IV magnesium for the COPD exacerbation, IV antihypertensive medication, and multiple discussions with the patient. Critical Care Time: 35 minutes ED Disposition Clinical Impression: COPD exacerbation, Pulmonary nodule, Acute respiratory failure with hypoxia Hypertension Qualifiers: Hypertension type: primary hypertension Qualified Code(s): I10 - Essential (primary) hypertension Disposition: OP ADMIT IP TO THIS HOSP Is pt being admited?: Yes Condition: Serious Instructions: Chronic Bronchitis (ED), Hypertension (ED) Time of Disposition: 00:42
--- NOTE | 2020-11-03 23:06 | XRay Report ---
CHEST 1 VIEW INDICATION: SOB. COMPARISON: 08/12/2020 FINDINGS: SUPPORT DEVICES: None. HEART: Within normal limits. LUNGS/PLEURA: No acute air space or interstitial disease. ADDITIONAL FINDINGS: None. IMPRESSION: 1. No acute findings. Signer Name: Sanjeev Arango MD Signed: 11/03/2020 11:02 PM Workstation Name: [id number]
[2020-11-03 23:09] LABS: Basophils # (Auto) 0.2 K/mm3 (0.0-0.1); Basophils % (Auto) 1.8 % (0.0-1.8); Eosinophils # (Auto) 0.1 K/mm3 (0.0-0.4); Eosinophils % (Auto) 1.3 % (0.0-4.3); Hemoglobin 14.6 gm/dl (10.1-14.3); Lymphocytes # (Auto) 1.2 K/mm3 (1.2-5.4); Mean Corpuscular HGB Conc 34 % (30-34); Mean Corpuscular Volume 85 fl (79-97); Monocytes # (Auto) 0.8 K/mm3 (0.0-0.8); Monocytes % (Auto) 8.6 % (0.0-7.3); Platelet Count 270 K/mm3 (140-440); Red Blood Count 5.08 M/mm3 (3.65-5.03); Red Cell Distribution Width 13.8 % (13.2-15.2)
[2020-11-03 23:30] LABS: Alanine Aminotransferase 13 units/L (7-56); Albumin 4.4 g/dL (3.9-5); BUN/Creatinine Ratio 18; Blood Urea Nitrogen 14 mg/dL (7-17); Hemolysis Index 4
[2020-11-04] MEDS ORDERED: hydrALAZINE 20 MG/1 ML INJ IV ONE (00:29)
--- NOTE | 2020-11-04 00:31 | Cat Scan Report ---
CTA chest with contrast INDICATION : SOB, elevated dimer. TECHNIQUE: Axial imaging performed through the chest, with contrast bolus timing set to maximize opa cification of the pulmonary arteries. 3-plane MIP reformatted images were obtained. All CT scans at this location are performed using CT dose reduction for ALARA by means of automated exposure control. 100 mL of intravenous contrast administered. COMPARISON: CTA chest from 07/01/2020 FINDINGS: Bolus/PTE: Contrast bolus timing is adequate. No filling defect is present to suggest PTE. Mediastinum: Heart and great vessels appear normal. No pathologic mediastinal adenopathy. Lungs: There is moderate emphysema with stable 6 mm nodule in the right upper lobe. Lungs are otherw ise clear. Upper abdomen: Limited imaging of the upper abdomen shows nothing acute. Bones: Degenerative changes in the spine with nothing acute. IMPRESSION: 1. Negative for PTE. 2. Stable spiculated nodule in the right upper lobe in this patient with moderate emphysema. Please s ee below recommendations. INCIDENTAL PULMONARY NODULE RECOMMENDATION RECOMMENDATION: Solid Nodule size 6-8 mm -- Single - Low Risk Patient: CT at 6-12 months, then consider CT at 18-24 months - High Risk Patient: CT at 6-12 months, then CT at 18-24 months Note These recommendations do not apply to lung cancer screening, patients with immunosuppression, o r patients with known primary cancer. Note Newly detected indeterminate nodule in persons 35 years of age or older. Persons under the age of 35 should not receive follow-up unless there is a known primary cancer. Note A Perifissural Nodule is a fissure-attached/subpleural, homogeneous, solid nodule that had smoo th margins and an oval, lentiform, or triangular shape. They represent about 20% of nodules detected in lung cancer screening, are invariably benign, and do not require follow-up. Nodules 10 mm or large r (or those with suspicious features) will continue to be managed based on the size criteria. Low Risk Patient -- minimal or absent history of smoking and of other known risk factors. High Risk Patient -- history of smoking or of other known risk factors. Nodule dimensions are average of long and short axes, rounded to the nearest millimeter. Based on 2017 Fleischner Society Guidelines found in Radiology 2017 284:228-243. https://doi.org/10.1148/radiol.[email or web address] https://www.ncbi.nlm.nih.gov/pmc/articles/UMY3116888/ Signer Name: Sanjeev Arango MD Signed: 11/04/2020 12:27 AM Workstation Name: [id number]
[2020-11-04] MEDS ORDERED: ONDANSETRON 4 MG/2 ML INJ IV PRN (01:06)
[2020-11-04] MEDS ORDERED: MAGNESIUM HYDROXIDE (MOM) ORAL LIQD UDC PO PRN (01:06)
[2020-11-04] MEDS ORDERED: MORPHINE 2 MG/1 ML INJ IV PRN (01:06)
[2020-11-04] MEDS ORDERED: ACETAMINOPHEN 325 MG TAB PO PRN (01:06)
[2020-11-04] MEDS ORDERED: MORPHINE 4 MG/1 ML INJ IV PRN (01:06)
--- NOTE | 2020-11-04 01:15 | History and Physical Report ---
History of Present Illness Date of examination: 11/04/20 Date of admission: 11/04/2020 Chief complaint: Shortness of breath Wheezing History of present illness: 64-year-old female with known history of COPD and hypertension brought into the emergency room today for evaluation of shortness of breath which has been ongoing for the past 2 days. She has had intermittent cough which is slightly productive of whitish sputum. Patient has been using her nebulizer treatment without any significant improvement and she also indicates she has been wheezing. Patient is on oxygen at home 4 L. She received nebulizing treatment with DuoNeb, magnesium sulfate and Solu-Medrol via EMS with some improvement. She denies any fever or chills, no chest pain, no nausea vomiting, no abdominal pain, no headache or dizziness, no diaphoresis. She has had some mild cough which is productive of some whitish sputum. Patient denies any sick contacts and no recent travel. Denies any contact with anyone with COVID-19. Upon arrival in the emergency room she was quite tachycardic, tachypneic and hypoxic and subsequently placed on BiPAP. Work-up in the emergency room today chest x-ray did not reveal any acute abnormality. She had an elevated D-dimer and subsequently a CT angiogram of the chest was done. CT angiogram was negative for pulmonary embolism however there is a stab le 6 mm spiculated nodule in the right upper lobe with moderate emphysema. Patient admitted with COPD exacerbation. Past History Past Medical History: hypertension, other (Asthma) Social history: smoking (Current daily smoker) Family history: no significant family history Medications and Allergies Allergies Allergy/AdvReac Type Severity Reaction Status Date / Time No Known Allergies Allergy Unverified 06/07/13 12:53 Home Medications Medication Instructions Recorded Confirmed Last Taken Type Budesonide [Pulmicort Respules] 0.5 mg IH Q12HRT #60 nebu 10/22/18 03/23/19 Unknown Rx Tiotropium [Spiriva] 18 mcg IH QDAY #30 cap 10/22/18 03/23/19 Unknown Rx Loratadine 10 mg PO DAILY 03/23/19 03/23/19 Unknown History Montelukast Sodium 10 mg PO DAILY 03/23/19 03/23/19 Unknown History Pantoprazole 40 mg PO HS 03/23/19 03/23/19 Unknown History Potassium Chloride 10 meq PO DAILY 03/23/19 03/23/19 Unknown History hydroCHLOROthiazide [HCTZ] 12.5 mg PO DAILY 03/23/19 03/23/19 Unknown History ALBUTEROL NEB's [Proventil 0.083% 2.5 mg IH TID PRN #1 box 07/02/20 Unknown Rx NEBS] Albuterol Mdi (or & Nicu Only) 2 puff IH QID PRN #1 inhalation 07/02/20 Unknown Rx [ProAir HFA Inhaler] ALPRAZolam [Xanax TAB] 0.25 mg PO TID PRN #15 tab 08/15/20 Unknown Rx Valsartan [Diovan] 80 mg PO QDAY #60 tablet 08/15/20 Unknown Rx predniSONE 20 mg PO BID 3 Days #12 tab 08/15/20 Unknown Rx predniSONE [Deltasone] 20 mg PO BID 3 Days #6 tab 08/15/20 Unknown Rx predniSONE [Deltasone] 40 mg PO BID 3 Days #12 tab 08/15/20 Unknown Rx Active Meds: Active Medications Acetaminophen (Acetaminophen 325 Mg Tab) 650 mg PO Q6H PRN PRN Reason: Pain MILD(1-3)/Fever >100.5/MOTTA Albuterol/Ipratropium (Ipratropium/Albuterol Sulfate 3 Ml Ampul.Neb) 1 ampul IH Q4HRT KIMBERLY Magnesium Hydroxide (Magnesium Hydroxide (Mom) Oral Liqd Udc) 30 ml PO Q4H PRN PRN Reason: Constipation Morphine Sulfate (Morphine 2 Mg/1 Ml Inj) 2 mg IV Q4H PRN PRN Reason: Pain, Moderate (4-6) Morphine Sulfate (Morphine 4 Mg/1 Ml Inj) 4 mg IV Q4H PRN PRN Reason: Pain , Severe (7-10) Ondansetron HCl (Ondansetron 4 Mg/2 Ml Inj) 4 mg IV Q8H PRN PRN Reason: Nausea And Vomiting Sodium Chloride (Sodium Chloride 0.9% 10 Ml Flush Syringe) 10 ml IV BID KIMBERLY Sodium Chloride (Sodium Chloride 0.9% 10 Ml Flush Syringe) 10 ml IV PRN PRN PRN Reason: LINE FLUSH Review of Systems Constitutional: no fever, no chills Ears, nose, mouth and throat: no nasal congestion, no sore throat Cardiovascular: no chest pain, no palpitations Respiratory: cough, shortness of breath, wheezing Gastrointestinal: no abdominal pain, no nausea, no vomiting, no diarrhea Genitourinary Female: no pelvic pain, no dysuria, no hematuria Musculoskeletal: no neck pain, no low back pain Integumentary: no rash, no pruritis Neurological: no headaches, no confusion Psychiatric: no anxiety, no depression Endocrine: no polydipsia, no polyuria, no nocturia Exam - Constitutional Vitals: Temp Pulse Resp BP Pulse Ox 98.6 F 107 H 27 H 175/109 100 11/03/20 22:32 11/04/20 00:55 11/03/20 22:49 11/04/20 00:55 11/04/20 00:00 General appearance: Present: mild distress, well-nourished - EENT Eyes: Present: PERRL, EOM intact. Absent: scleral icterus ENT: hearing intact, clear oral mucosa, dentition normal - Neck Neck: Present: supple, normal ROM - Respiratory Respiratory effort: normal Respiratory: bilateral: wheezing - Cardiovascular Rhythm: regular Heart Sounds: Present: S1 & S2. Absent: gallop, systolic murmur, diastolic murmur, rub, click - Extremities Extremities: no ischemia, pulses intact, pulses symmetrical, No edema, normal temperature, Full ROM Peripheral Pulses: within normal limits - Abdominal General gastrointestinal: Present: soft, non-tender, non-distended, normal bowel sounds. Absent: mass - Integumentary Integumentary: Present: clear, warm, dry. Absent: rash - Musculoskeletal Musculoskeletal: strength equal bilaterally - Psychiatric Psychiatric: appropriate mood/affect, intact judgment & insight, memory intact, cooperative - Neurologic Neurologic: CNII-XII intact, moves all extremities HEART Score - HEART Score Troponin: Troponin T < 0.010 ng/mL (0.00-0.029) 11/03/20 22:45 Results - Labs CBC & Chem 7: 11/03/20 22:45 11/03/20 22:45 Labs: Abnormal lab results 11/03/20 11/03/20 11/03/20 Range/Units 22:45 22:45 22:45 RBC 5.08 H (3.65-5.03) M/mm3 Hgb 14.6 H (10.1-14.3) gm/dl Hct 43.0 H (30.3-42.9) % Lymph % (Auto) 13.0 L (13.4-35.0) % [place] % (Auto) 8.6 H (0.0-7.3) % Baso # (Auto) 0.2 H (0.0-0.1) K/mm3 Seg Neutrophils % 75.3 H (40.0-70.0) % D-Dimer 711.54 H (0-234) ng/mlDDU Glucose 101 H (65-100) mg/dL Assessment and Plan - Patient Problems (1) COPD exacerbation Current Visit: Yes Status: Acute Plan to address problem: Patient placed on nebulizing treatments and IV steroid. We will keep O2 saturation greater or equal to 94%. (2) Acute respiratory failure with hypoxia Current Visit: Yes Status: Acute Plan to address problem: Secondary to the COPD exacerbation. Patient currently on BiPAP. Consult placed to pulmonology for evaluation and recommendation. (3) Hypoxia Current Visit: No Status: Acute Plan to address problem: Secondary to the COPD exacerbation. Patient has been placed on BiPAP. We will keep O2 saturation greater or equal to 94%. (4) DVT prophylaxis Current Visit: No Status: Acute Plan to address problem: We will place patient on subcutaneous heparin. (5) Full code status Current Visit: No Status: Acute Plan to address problem: Patient is full code.
[2020-11-04] MEDS ORDERED: LORazepam 2 MG/ML VIAL ONE (01:35)
[2020-11-04] MEDS ORDERED: LORazepam 2 MG/ML VIAL IV ONE (01:42)
[2020-11-04] MEDS: IPRATROPIUM/ALBUTEROL SULFATE 3 ML AMPUL.NEB IH SCH ×5 (05:13→20:57)
[2020-11-04] MEDS: HEPARIN 5,000 UNIT/1 ML VIAL SUB-Q SCH ×3 (06:13→22:01)
[2020-11-04] MEDS: methylPREDNISolone Sod Succinate 40 MG/1 ML INJ IV SCH ×3 (06:13→22:00)
[2020-11-04] MEDS ORDERED: ALPRAZolam 0.25 MG TAB PO PRN (08:00)
[2020-11-04] MEDS ORDERED: ALBUTEROL 2.5 MG/3 ML NEBU IH PRN (08:02)
[2020-11-04] MEDS: BUDESONIDE 0.5 MG/2 ML NEBU IH SCH ×2 (08:08→20:56)
--- NOTE | 2020-11-04 08:17 | Progress Note ---
Assessment and Plan Assessment and plan: --Acute exacerbation of COPD ; Current Visit: Yes Status: Acute Patient placed on nebulizing treatments and IV steroid. We will keep O2 saturation greater or equal to 94%. -- Acute respiratory failure with hypoxia on BiPAP Current Visit: Yes Status: Acute Secondary to the COPD exacerbation. Titrate O2 sats to more than 90% Follow coronary evaluation and recommendations Home oxygen evaluation at discharge --Spiculated right lung nodule on CTA chest Current Visit: No Status: Chronic Pulmonary consulted --Hypertension/moderate control Current Visit: No Status: Chronic Resume home antihypertensives As needed hydralazine closely monitor blood pressures and adjust as needed --Elevated D-dimers; Current Visit: No Status: Acute CTA negative for PE Venous Doppler to rule out DVT --DVT prophylaxis Current Visit: No Status: Acute We will place patient on subcutaneous heparin. --Full code status Current Visit: No Status: Acute Patient is full code. We will closely monitor the patient and adjust the management as needed Plan of care reviewed with the patient and her nurse Advance care planning 35 minutes History Interval history: Patient not vaccinated for COVID-19 No known exposures Have seen and examined the patient at the bedside Patient's chart and medications reviewed Patient feels slightly better still has some shortness of breath Vital signs noted Hospitalist Physical - Constitutional Vitals: Temp Pulse Resp BP Pulse Ox 98.6 F 107 H 32 H 154/97 99 11/03/20 22:32 11/04/20 00:55 11/04/20 01:02 11/04/20 07:42 11/04/20 07:42 General appearance: Present: mild distress, well-nourished - EENT Eyes: Present: PERRL, EOM intact - Neck Neck: Present: supple, normal ROM - Respiratory Respiratory effort: normal Respiratory: bilateral: diminished, rhonchi, negative: rales, wheezing - Cardiovascular Rhythm: regular Heart Sounds: Present: S1 & S2 - Extremities Extremities: no ischemia, pulses intact - Abdominal General gastrointestinal: soft, non-tender, non-distended, normal bowel sounds - Integumentary Integumentary: Present: clear, warm - Psychiatric Psychiatric: appropriate mood/affect, cooperative - Neurologic Neurologic: CNII-XII intact, moves all extremities HEART Score - HEART Score Troponin: Troponin T < 0.010 ng/mL (0.00-0.029) 11/03/20 22:45 Results - Labs CBC & Chem 7: 11/03/20 22:45 11/03/20 22:45 Labs: Laboratory Last Values WBC 9.6 K/mm3 (4.5-11.0) 11/03/20 22:45 RBC 5.08 M/mm3 (3.65-5.03) H 11/03/20 22:45 Hgb 14.6 gm/dl (10.1-14.3) H 11/03/20 22:45 Hct 43.0 % (30.3-42.9) H 11/03/20 22:45 MCV 85 fl (79-97) 11/03/20 22:45 MCH 29 pg (28-32) 11/03/20 22:45 MCHC 34 % (30-34) 11/03/20 22:45 RDW 13.8 % (13.2-15.2) 11/03/20 22:45 Plt Count 270 K/mm3 (140-440) 11/03/20 22:45 Lymph % (Auto) 13.0 % (13.4-35.0) L 11/03/20 22:45 [place] % (Auto) 8.6 % (0.0-7.3) H 11/03/20 22:45 Eos % (Auto) 1.3 % (0.0-4.3) 11/03/20 22:45 Baso % (Auto) 1.8 % (0.0-1.8) 11/03/20 22:45 Lymph # (Auto) 1.2 K/mm3 (1.2-5.4) 11/03/20 22:45 [place] # (Auto) 0.8 K/mm3 (0.0-0.8) 11/03/20 22:45 Eos # (Auto) 0.1 K/mm3 (0.0-0.4) 11/03/20 22:45 Baso # (Auto) 0.2 K/mm3 (0.0-0.1) H 11/03/20 22:45 Seg Neutrophils % 75.3 % (40.0-70.0) H 11/03/20 22:45 Seg Neutrophils # 7.2 K/mm3 (1.8-7.7) 11/03/20 22:45 D-Dimer 711.54 ng/mlDDU (0-234) H 11/03/20 22:45 Sodium 142 mmol/L (137-145) 11/03/20 22:45 Potassium 4.1 mmol/L (3.6-5.0) 11/03/20 22:45 Chloride 104.9 mmol/L (98-107) 11/03/20 22:45 Carbon Dioxide 26 mmol/L (22-30) 11/03/20 22:45 Anion Gap 15 mmol/L 11/03/20 22:45 BUN 14 mg/dL (7-17) 11/03/20 22:45 Creatinine 0.8 mg/dL (0.6-1.2) 11/03/20 22:45 Estimated GFR > 60 ml/min 11/03/20 22:45 BUN/Creatinine Ratio 18 % 11/03/20 22:45 Glucose 101 mg/dL (65-100) H 11/03/20 22:45 Calcium 9.0 mg/dL (8.4-10.2) 11/03/20 22:45 Total Bilirubin 0.50 mg/dL (0.1-1.2) 11/03/20 22:45 AST 16 units/L (5-40) 11/03/20 22:45 ALT 13 units/L (7-56) 11/03/20 22:45 Alkaline Phosphatase 85 units/L (35-129) 11/03/20 22:45 Troponin T < 0.010 ng/mL (0.00-0.029) 11/03/20 22:45 NT-Pro-B Natriuret Pep 125.2 pg/mL (0-900) 11/03/20 22:45 Total Protein 6.9 g/dL (6.3-8.2) 11/03/20 22:45 Albumin 4.4 g/dL (3.9-5) 11/03/20 22:45 Albumin/Globulin Ratio 1.8 % 11/03/20 22:45 Active Medications - Current Medications Current Medications: Generic Name Dose Route Start Last Admin Trade Name Freq PRN Reason Stop Dose Admin Acetaminophen 650 mg 11/04/20 01:06 Acetaminophen 325 Mg Tab PO Q6H PRN Pain MILD(1-3)/Fever >100.5/MOTTA Albuterol 2.5 mg 11/04/20 08:02 Albuterol 2.5 Mg/3 Ml Nebu IH Q4HRT PRN Shortness Of Breath Albuterol/Ipratropium 1 ampul 11/04/20 04:00 11/04/20 08:08 Ipratropium/Albuterol Sulfate 3 Ml Ampul.Neb IH 1 ampul Q4HRT KIMBERLY Administration Alprazolam 0.25 mg 11/04/20 08:00 Alprazolam 0.25 Mg Tab PO TID PRN Anxiety Budesonide 0.5 mg 11/04/20 08:00 11/04/20 08:08 Budesonide 0.5 Mg/2 Ml Nebu IH 0.5 mg Q12HRT KIMBERLY Administration Heparin Sodium (Porcine) 5,000 unit 11/04/20 06:00 11/04/20 06:13 Heparin 5,000 Unit/1 Ml Vial SUB-Q 5,000 unit Q8HR KIMBERLY Administration Hydralazine HCl 10 mg 11/04/20 08:10 Hydralazine 20 Mg/1 Ml Inj IV Q4HR PRN Hypertension Hydrochlorothiazide 12.5 mg 11/04/20 10:00 Hydrochlorothiazide 12.5 Mg Cap PO DAILY KIMBERLY Magnesium Hydroxide 30 ml 11/04/20 01:06 Magnesium Hydroxide (Mom) Oral Liqd Udc PO Q4H PRN Constipation Methylprednisolone Sodium Succinate 40 mg 11/04/20 06:00 11/04/20 06:13 Methylprednisolone Sod Succinate 40 Mg/1 Ml Inj IV 40 mg Q8HR KIMBRELY Administration Montelukast Sodium 10 mg 11/04/20 22:00 Montelukast 10 Mg Tab PO QHS KIMBERLY Morphine Sulfate 2 mg 11/04/20 01:06 Morphine 2 Mg/1 Ml Inj IV Q4H PRN Pain, Moderate (4-6) Morphine Sulfate 4 mg 11/04/20 01:06 Morphine 4 Mg/1 Ml Inj IV Q4H PRN Pain , Severe (7-10) Ondansetron HCl 4 mg 11/04/20 01:06 Ondansetron 4 Mg/2 Ml Inj IV Q8H PRN Nausea And Vomiting Sodium Chloride 10 ml 11/04/20 10:00 Sodium Chloride 0.9% 10 Ml Flush Syringe IV BID KIMBERLY Sodium Chloride 10 ml 11/04/20 01:06 Sodium Chloride 0.9% 10 Ml Flush Syringe IV PRN PRN LINE FLUSH Valsartan 80 mg 11/04/20 10:00 Valsartan 40 Mg Tab PO QDAY KIMBERLY
[2020-11-04] MEDS ORDERED: hydrALAZINE 20 MG/1 ML INJ IV PRN (08:30)
[2020-11-04] MEDS ORDERED: TIOTROPIUM 18 MCG CAP INHALATION IH SCH (10:00)
[2020-11-04] MEDS: VALSARTAN 40 MG TAB PO SCH (12:04)
[2020-11-04] MEDS: hydroCHLOROthiazide 12.5 MG CAP PO SCH (12:04)
--- NOTE | 2020-11-04 13:33 | Consultation ---
History of Present Illness Consult date: 11/04/20 Reason for consult: dyspnea, cough, COPD, hypoxemia History of present illness: 64-year-old female with known history of COPD and hypertension brought into the emergency room today for evaluation of shortness of breath which has been ongoing for the past 2 days. She has had intermittent cough which is slightly productive of whitish sputum. Patient has been using her nebulizer treatment without any significant improvement and she also indicates she has been wheezing. Patient is on oxygen at home 4 L. She received nebulizing treatment with DuoNeb, magnesium sulfate and Solu-Medrol via EMS with some improvement. She denies any fever or chills, no chest pain, no nausea vomiting, no abdominal pain, no headache or dizziness, no diaphoresis. She has had some mild cough which is productive of some whitish sputum. Patient denies any sick contacts and no recent travel. Denies any contact with anyone with COVID-19. Upon arrival in the emergency room she was quite tachycardic, tachypneic and hypoxic and subsequently placed on BiPAP. Work-up in the emergency room today chest x-ray did not reveal any acute abnormality. She had an elevated D-dimer and subsequently a CT angiogram of the chest was done. CT angiogram was negative for pulmonary embolism however there is a stable 6 mm spiculated nodule in the right upper lobe with moderate emphysema. Patient has history of smoking 1/2 a pack a day for 13 years. Says stopped smoking 3 months ago. Denies alcohol or drug abuse. 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 No Known drug allergies. Patient admitted with COPD exacerbation. Patient presently on high flow o2 5 litres via nasal canula. O2 saturation 97%. BIPAP 16/8, Rate 18, FIO2 40% stand by in the room. Patient afebrile, No Leukocytosis Patient presently on I/V solumedrol, Albuterol/atrovent aerosol treatment, S/C Heparin. CTA of chest 11/03/20 reported stable 6 mm spiculated nodule in the right upper lobe with moderate emphysema. Strongly recommend to follow as out patient in my office. Past History Past Medical History: hypertension, other (Asthma) Social history: smoking (Current daily smoker) Family history: no significant family history Medications and Allergies Allergies Allergy/AdvReac Type Severity Reaction Status Date / Time No Known Allergies Allergy Unverified 06/07/13 12:53 Home Medications Medication Instructions Recorded Confirmed Last Taken Type Budesonide [Pulmicort Respules] 0.5 mg IH Q12HRT #60 nebu 10/22/18 03/23/19 Unknown Rx Tiotropium [Spiriva] 18 mcg IH QDAY #30 cap 10/22/18 03/23/19 Unknown Rx Loratadine 10 mg PO DAILY 03/23/19 03/23/19 Unknown History Montelukast Sodium 10 mg PO DAILY 03/23/19 03/23/19 Unknown History Pantoprazole 40 mg PO HS 03/23/19 03/23/19 Unknown History Potassium Chloride 10 meq PO DAILY 03/23/19 03/23/19 Unknown History hydroCHLOROthiazide [HCTZ] 12.5 mg PO DAILY 03/23/19 03/23/19 Unknown History ALBUTEROL NEB's [Proventil 0.083% 2.5 mg IH TID PRN #1 box 07/02/20 Unknown Rx NEBS] Albuterol Mdi (or & Nicu Only) 2 puff IH QID PRN #1 inhalation 07/02/20 Unknown Rx [ProAir HFA Inhaler] ALPRAZolam [Xanax TAB] 0.25 mg PO TID PRN #15 tab 08/15/20 Unknown Rx Valsartan [Diovan] 80 mg PO QDAY #60 tablet 08/15/20 Unknown Rx predniSONE 20 mg PO BID 3 Days #12 tab 08/15/20 Unknown Rx predniSONE [Deltasone] 20 mg PO BID 3 Days #6 tab 08/15/20 Unknown Rx predniSONE [Deltasone] 40 mg PO BID 3 Days #12 tab 08/15/20 Unknown Rx Active Meds: Active Medications Acetaminophen (Acetaminophen 325 Mg Tab) 650 mg PO Q6H PRN PRN Reason: Pain MILD(1-3)/Fever >100.5/MOTTA Albuterol (Albuterol 2.5 Mg/3 Ml Nebu) 2.5 mg IH Q4HRT PRN PRN Reason: Shortness Of Breath Albuterol/Ipratropium (Ipratropium/Albuterol Sulfate 3 Ml Ampul.Neb) 1 ampul IH Q4HRT KIMBERLY Last Admin: 11/04/20 11:52 Dose: 1 ampul Documented by: Alprazolam (Alprazolam 0.25 Mg Tab) 0.25 mg PO TID PRN PRN Reason: Anxiety Budesonide (Budesonide 0.5 Mg/2 Ml Nebu) 0.5 mg IH Q12HRT [facility] Last Admin: 11/04/20 08:08 Dose: 0.5 mg Documented by: Heparin Sodium (Porcine) (Heparin 5,000 Unit/1 Ml Vial) 5,000 unit SUB-Q Q8HR [facility] Last Admin: 11/04/20 06:13 Dose: 5,000 unit Documented by: Hydralazine HCl (Hydralazine 20 Mg/1 Ml Inj) 10 mg IV Q4H PRN PRN Reason: Hypertension Last Admin: 11/04/20 12:06 Dose: 10 mg Documented by: Hydrochlorothiazide (Hydrochlorothiazide 12.5 Mg Cap) 12.5 mg PO DAILY [facility] Last Admin: 11/04/20 12:04 Dose: 12.5 mg Documented by: Magnesium Hydroxide (Magnesium Hydroxide (Mom) Oral Liqd Udc) 30 ml PO Q4H PRN PRN Reason: Constipation Methylprednisolone Sodium Succinate (Methylprednisolone Sod Succinate 40 Mg/1 Ml Inj) 40 mg IV Q8HR [facility] Last Admin: 11/04/20 06:13 Dose: 40 mg Documented by: Montelukast Sodium (Montelukast 10 Mg Tab) 10 mg PO QHS [facility] Morphine Sulfate (Morphine 2 Mg/1 Ml Inj) 2 mg IV Q4H PRN PRN Reason: Pain, Moderate (4-6) Morphine Sulfate (Morphine 4 Mg/1 Ml Inj) 4 mg IV Q4H PRN PRN Reason: Pain , Severe (7-10) Ondansetron HCl (Ondansetron 4 Mg/2 Ml Inj) 4 mg IV Q8H PRN PRN Reason: Nausea And Vomiting Sodium Chloride (Sodium Chloride 0.9% 10 Ml Flush Syringe) 10 ml IV BID [facility] Last Admin: 11/04/20 12:10 Dose: 10 ml Documented by: Sodium Chloride (Sodium Chloride 0.9% 10 Ml Flush Syringe) 10 ml IV PRN PRN PRN Reason: LINE FLUSH Valsartan (Valsartan 40 Mg Tab) 80 mg PO QDAY [facility] Last Admin: 11/04/20 12:04 Dose: 80 mg Documented by: Review of Systems All systems: negative Physical Examination Vital signs: Vital Signs Temp Pulse Resp BP Pulse Ox 98.6 F 110 H 28 H 171/104 96 11/03/20 22:32 11/03/20 22:32 11/03/20 22:32 11/03/20 22:32 11/03/20 22:32 General appearance: no acute distress, alert Eyes: non-icteric ENT: oropharynx moist Neck: supple, no lymphadenopathy, no JVD Effort: mildly labored Ascultation: Bilateral: diminished breath sounds, other (Prolonged expiratory phase.) Cardiovascular: regular rate and rhythm Gastrointestinal: normoactive bowel sounds, soft, non-tender Integumentary: normal Extremities: no cyanosis, no edema Musculoskeletal: no deformities Gait: other (Patient resting in bed at this time.) normal mental status, non-focal exam mood appropriate, affect normal Results - Laboratory Findings CBC and BMP: 11/03/20 22:45 11/03/20 22:45 PT/INR, D-dimer D-Dimer 711.54 ng/mlDDU (0-234) H 11/03/20 22:45 Abnormal lab findings: Abnormal Labs 11/03/20 11/03/20 11/03/20 22:45 22:45 22:45 RBC 5.08 H Hgb 14.6 H Hct 43.0 H Lymph % (Auto) 13.0 L [place] % (Auto) 8.6 H Baso # (Auto) 0.2 H Seg Neutrophils % 75.3 H D-Dimer 711.54 H Glucose 101 H - Diagnostic Findings Chest x-ray: report reviewed, image reviewed Additional studies: CHEST 1 VIEW 11/03/20 INDICATION: SOB. COMPARISON: 08/12/2020 FINDINGS: SUPPORT DEVICES: None. HEART: Within normal limits. LUNGS/PLEURA: No acute air space or interstitial disease. ADDITIONAL FINDINGS: None. IMPRESSION: 1. No acute findings. CTA chest with contrast 11/03/20 INDICATION : SOB, elevated dimer. TECHNIQUE: Axial imaging performed through the chest, with contrast bolus timing set to maximize opacification of the pulmonary arteries. 3-plane MIP reformatted images were obtained. All CT scans at this location are performed using CT dose reduction for ALARA by means of automated exposure control. 100 mL of intravenous contrast administered. COMPARISON: CTA chest from 07/01/2020 FINDINGS: Bolus/PTE: Contrast bolus timing is adequate. No filling defect is present to suggest PTE. Mediastinum: Heart and great vessels appear normal. No pathologic mediastinal adenopathy. Lungs: There is moderate emphysema with stable 6 mm nodule in the right upper lobe. Lungs are otherwise clear. Upper abdomen: Limited imaging of the upper abdomen shows nothing acute. Bones: Degenerative changes in the spine with nothing acute. IMPRESSION: 1. Negative for PTE. 2. Stable spiculated nodule in the right upper lobe in this patient with moderate emphysema. Please see below recommendations. INCIDENTAL PULMONARY NODULE RECOMMENDATION RECOMMENDATION: Solid Nodule size 6-8 mm -- Single - Low Risk Patient: CT at 6-12 months, then consider CT at 18-24 months - High Risk Patient: CT at 6-12 months, then CT at 18-24 months Note These recommendations do not apply to lung cancer screening, patients with immunosuppression, or patients with known primary cancer. Note Newly detected indeterminate nodule in persons 35 years of age or older. Persons under the age of 35 should not receive follow-up unless there is a known primary cancer. Note A Perifissural Nodule is a fissure-attached/subpleural, homogeneous, solid nodule that had smooth margins and an oval, lentiform, or triangular shape. They represent about 20% of nodules detected in lung cancer screening, are invariably benign, and do not require follow-up. Nodules 10 mm or larger (or those with suspicious features) will continue to be managed based on the size criteria. Low Risk Patient -- minimal or absent history of smoking and of other known risk factors. High Risk Patient -- history of smoking or of other known risk factors. Nodule dimensions are average of long and short axes, rounded to the nearest millimeter. Based on 2017 Fleischner Society Guidelines found in Radiology 2017 284:228- 243. https://doi.org/10.1148/radiol.5181819078 https://www.ncbi.nlm.nih.gov/pmc/articles/ZEJ0611574/ Assessment and Plan 64-year-old female with known history of COPD and hypertension brought into the emergency room today for evaluation of shortness of breath which has been ongoing for the past 2 days. She has had intermittent cough which is slightly productive of whitish sputum. Patient has been using her nebulizer treatment without any significant improvement and she also indicates she has been wheezing. Patient is on oxygen at home 4 L. She received nebulizing treatment with DuoNeb, magnesium sulfate and Solu-Medrol via EMS with some improvement. She denies any fever or chills, no chest pain, no nausea vomiting, no abdominal pain, no headache or dizziness, no diaphoresis. She has had some mild cough which is productive of some whitish sputum. Patient denies any sick contacts and no recent travel. Denies any contact with anyone with COVID-19. Upon arrival in the emergency room she was quite tachycardic, tachypneic and hypoxic and subsequently placed on BiPAP. Work-up in the emergency room today chest x-ray did not reveal any acute abnormality. She had an elevated D-dimer and subsequently a CT angiogram of the chest was d one. CT angiogram was negative for pulmonary embolism however there is a stable 6 mm spiculated nodule in the right upper lobe with moderate emphysema. Patient has history of smoking 1/2 a pack a day for 13 years. Says stopped smoking 3 months ago. Denies alcohol or drug abuse. 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 No Known drug allergies. Patient admitted with COPD exacerbation. Patient presently on high flow o2 5 litres via nasal canula. O2 saturation 97%. BIPAP 16/8, Rate 18, FIO2 40% stand by in the room. Patient afebrile, No Leukocytosis Patient presently on I/V solumedrol, Albuterol/atrovent aerosol treatment, S/C Heparin. CTA of chest 11/03/20 reported stable 6 mm spiculated nodule in the right upper lobe with moderate emphysema. Strongly recommend to follow as out patient in my office. Patient was seen in the emergency room. I spent critical care time of 45 minutes obtaining history, review the chart, examine the patient, examine xrays , lab results, talking to the nursing and respiratory therapy and work out plan of treatment in this critically ill Patient. - Patient Problems (1) Acute respiratory failure with hypoxia Current Visit: Yes Status: Acute Plan to address problem: High flow O2 5 litres via nasal canula BIPAP 16/8, Rate 18, FIO2 40% stand by in the room. Continue I/V solumedrol, Albuterol/atrovent aerosol treatments. Continue S/C heparin. ABGs on O2. (2) COPD exacerbation Current Visit: Yes Status: Acute Plan to address problem: High flow O2 5 litres via nasal canula BIPAP 16/8, Rate 18, FIO2 40% stand by in the room. Continue I/V solumedrol, Albuterol/atrovent aerosol treatments. Continue S/C heparin Recommend to add zithromax. (3) Pulmonary nodule Current Visit: Yes Status: Acute Plan to address problem: Stable spiculated nodule right upper lobe. Repeat CAT scan of chest 3 to 6 months. Stressed importance of follow up as out patient. (4) Hypertension Current Visit: Yes Status: Chronic Qualifiers: Hypertension type: primary hypertension Qualified Code(s): I10 - Essential (primary) hypertension Plan to address problem: Management as per primary care. (5) Elevated d-dimer Current Visit: No Status: Acute Plan to address problem: Angio CT Reported No PE. Patient is on S/C heparin. Denies leg swelling or pain. (6) Passive smoke exposure Current Visit: No Status: Chronic Plan to address problem: Conseled to stop smoking. Take precautions to prevent second hand smoking exposure.
--- NOTE | 2020-11-04 14:34 | Electrocardiograph Report ---
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
[2020-11-04] MEDS: MONTELUKAST 10 MG TAB PO SCH (22:30)
[2020-11-05] MEDS: IPRATROPIUM/ALBUTEROL SULFATE 3 ML AMPUL.NEB IH SCH ×4 (00:16→20:37)
[2020-11-05] MEDS ORDERED: IPRATROPIUM/ALBUTEROL SULFATE 3 ML AMPUL.NEB IH ONE (02:33)
[2020-11-05 05:24] LABS: Hematocrit 40.4 % (30.3-42.9); Hemoglobin 13.2 gm/dl (10.1-14.3); Mean Corpuscular HGB Conc 33 % (30-34); Mean Corpuscular Volume 86 fl (79-97); Platelet Count 283 K/mm3 (140-440); Red Blood Count 4.72 M/mm3 (3.65-5.03); Red Cell Distribution Width 13.8 % (13.2-15.2)
[2020-11-05 05:31] LABS: BUN/Creatinine Ratio 27; Blood Urea Nitrogen 24 mg/dL (7-17); Calcium 9.6 mg/dL (8.4-10.2); Hemolysis Index 3; INR 0.95 (0.87-1.13)
[2020-11-05] MEDS: HEPARIN 5,000 UNIT/1 ML VIAL SUB-Q SCH ×3 (06:01→21:47)
[2020-11-05] MEDS: methylPREDNISolone Sod Succinate 40 MG/1 ML INJ IV SCH ×3 (06:01→21:47)
[2020-11-05 06:35] LABS: Platelet Estimate Consistent w Auto; RBC Morphology Normal; Total Cells Counted 100
--- NOTE | 2020-11-05 08:58 | Progress Note ---
Assessment and Plan Assessment and plan: --Acute exacerbation of COPD ; Current Visit: Yes Status: Acute Patient placed on nebulizing treatments and IV steroid. We will keep O2 saturation greater or equal to 94%. -- Acute on chronic respiratory failure with hypoxia on BiPAP Current Visit: Yes Status: Acute Secondary to the COPD exacerbation. Titrate O2 sats to more than 90% Follow coronary evaluation and recommendations Patient has home oxygen Pulmonary following --Spiculated right lung nodule on CTA chest Current Visit: No Status: Chronic Pulmonary following --Hypertension/moderate control Current Visit: No Status: Chronic Resume home antihypertensives As needed hydralazine closely monitor blood pressures and adjust as needed --Elevated D-dimers; Current Visit: No Status: Acute CTA negative for PE Venous Doppler to rule out DVT --DVT prophylaxis Current Visit: No Status: Acute We will place patient on subcutaneous heparin. --Full code status Current Visit: No Status: Acute Patient is full code. We will closely monitor the patient and adjust the management as needed Plan of care reviewed with the patient and her nurse Hospitalist Physical - Constitutional Vitals: Temp Pulse Resp BP Pulse Ox 98.6 F 109 H 18 156/86 100 11/03/20 22:32 11/05/20 00:15 11/05/20 00:15 11/05/20 07:23 11/05/20 07:23 General appearance: Present: mild distress, well-nourished HEART Score - HEART Score Troponin: Troponin T < 0.010 ng/mL (0.00-0.029) 11/03/20 22:45 Results - Labs CBC & Chem 7: 11/05/20 04:23 11/05/20 04:23 Labs: Laboratory Last Values WBC 13.3 K/mm3 (4.5-11.0) H 11/05/20 04:23 RBC 4.72 M/mm3 (3.65-5.03) 11/05/20 04:23 Hgb 13.2 gm/dl (10.1-14.3) 11/05/20 04:23 Hct 40.4 % (30.3-42.9) 11/05/20 04:23 MCV 86 fl (79-97) 11/05/20 04:23 MCH 28 pg (28-32) 11/05/20 04:23 MCHC 33 % (30-34) 11/05/20 04:23 RDW 13.8 % (13.2-15.2) 11/05/20 04:23 Plt Count 283 K/mm3 (140-440) 11/05/20 04:23 Lymph % (Auto) 13.0 % (13.4-35.0) L 11/03/20 22:45 [place] % (Auto) 8.6 % (0.0-7.3) H 11/03/20 22:45 Eos % (Auto) 1.3 % (0.0-4.3) 11/03/20 22:45 Baso % (Auto) 1.8 % (0.0-1.8) 11/03/20 22:45 Lymph # (Auto) 1.2 K/mm3 (1.2-5.4) 11/03/20 22:45 [place] # (Auto) 0.8 K/mm3 (0.0-0.8) 11/03/20 22:45 Eos # (Auto) 0.1 K/mm3 (0.0-0.4) 11/03/20 22:45 Baso # (Auto) 0.2 K/mm3 (0.0-0.1) H 11/03/20 22:45 Add Manual Diff Complete 11/05/20 04:23 Total Counted 100 11/05/20 04:23 Seg Neutrophils % Table Lever Operator 11/05/20 04:23 Seg Neuts % (Manual) 91.0 % (40.0-70.0) H 11/05/20 04:23 Lymphocytes % (Manual) 5.0 % (13.4-35.0) L 11/05/20 04:23 Monocytes % (Manual) 4.0 % (0.0-7.3) 11/05/20 04:23 Nucleated RBC % Not Reportable 11/05/20 04:23 Seg Neutrophils # 7.2 K/mm3 (1.8-7.7) 11/03/20 22:45 Seg Neutrophils # Man 12.1 K/mm3 (1.8-7.7) H 11/05/20 04:23 Band Neutrophils # 0.0 K/mm3 11/05/20 04:23 Lymphocytes # (Manual) 0.7 K/mm3 (1.2-5.4) L 11/05/20 04:23 Abs React Lymphs (Man) 0.0 K/mm3 11/05/20 04:23 Monocytes # (Manual) 0.5 K/mm3 (0.0-0.8) 11/05/20 04:23 Eosinophils # (Manual) 0.0 K/mm3 (0.0-0.4) 11/05/20 04:23 Basophils # (Manual) 0.0 K/mm3 (0.0-0.1) 11/05/20 04:23 Metamyelocytes # 0.0 K/mm3 11/05/20 04:23 Myelocytes # 0.0 K/mm3 11/05/20 04:23 Promyelocytes # 0.0 K/mm3 11/05/20 04:23 Blast Cells # 0.0 K/mm3 11/05/20 04:23 WBC Morphology Not Reportable 11/05/20 04:23 Hypersegmented Neuts Not Reportable 11/05/20 04:23 Hyposegmented Neuts Not Reportable 11/05/20 04:23 Hypogranular Neuts Not Reportable 11/05/20 04:23 Smudge Cells Not Reportable 11/05/20 04:23 Toxic Granulation Not Reportable 11/05/20 04:23 Toxic Vacuolation Not Reportable 11/05/20 04:23 Dohle Bodies Not Reportable 11/05/20 04:23 Pelger-Huet Anomaly Not Reportable 11/05/20 04:23 [place] Rods Not Reportable 11/05/20 04:23 Platelet Estimate Consistent w auto 11/05/20 04:23 Clumped Platelets Not Reportable 11/05/20 04:23 Plt Clumps, EDTA Not Reportable 11/05/20 04:23 Large Platelets Not Reportable 11/05/20 04:23 Giant Platelets Not Reportable 11/05/20 04:23 Platelet Satelliting Not Reportable 11/05/20 04:23 Plt Morphology Comment Not Reportable 11/05/20 04:23 RBC Morphology Normal 11/05/20 04:23 Dimorphic RBCs Not Reportable 11/05/20 04:23 Polychromasia Not Reportable 11/05/20 04:23 Hypochromasia Not Reportable 11/05/20 04:23 Poikilocytosis Not Reportable 11/05/20 04:23 Anisocytosis Not Reportable 11/05/20 04:23 Microcytosis Not Reportable 11/05/20 04:23 Macrocytosis Not Reportable 11/05/20 04:23 Spherocytes Not Reportable 11/05/20 04:23 Pappenheimer Bodies Not Reportable 11/05/20 04:23 Sickle Cells Not Reportable 11/05/20 04:23 Target Cells Not Reportable 11/05/20 04:23 Tear Drop Cells Not Reportable 11/05/20 04:23 Ovalocytes Not Reportable 11/05/20 04:23 Helmet Cells Not Reportable 11/05/20 04:23 Roach-[place] Bodies Not Reportable 11/05/20 04:23 [place] Rings Not Reportable 11/05/20 04:23 [place] Cells Not Reportable 11/05/20 04:23 Bite Cells Not Reportable 11/05/20 04:23 Crenated Cell Not Reportable 11/05/20 04:23 Elliptocytes Not Reportable 11/05/20 04:23 Acanthocytes (Spur) Not Reportable 11/05/20 04:23 Rouleaux Not Reportable 11/05/20 04:23 Hemoglobin C Crystals Not Reportable 11/05/20 04:23 Schistocytes Not Reportable 11/05/20 04:23 Malaria parasites Not Reportable 11/05/20 04:23 Charlie Bodies Not Reportable 11/05/20 04:23 Hem Pathologist Commnt No 11/05/20 04:23 PT 13.2 Sec. (12.2-14.9) 11/05/20 04:23 INR 0.95 (0.87-1.13) 11/05/20 04:23 D-Dimer 711.54 ng/mlDDU (0-234) H 11/03/20 22:45 Sodium 138 mmol/L (137-145) 11/05/20 04:23 Potassium 4.3 mmol/L (3.6-5.0) 11/05/20 04:23 Chloride 98.6 mmol/L (98-107) 11/05/20 04:23 Carbon Dioxide 28 mmol/L (22-30) 11/05/20 04:23 Anion Gap 16 mmol/L 11/05/20 04:23 BUN 24 mg/dL (7-17) H 11/05/20 04:23 Creatinine 0.9 mg/dL (0.6-1.2) 11/05/20 04:23 Estimated GFR > 60 ml/min 11/05/20 04:23 BUN/Creatinine Ratio 27 % 11/05/20 04:23 Glucose 207 mg/dL (65-100) H 11/05/20 04:23 Calcium 9.6 mg/dL (8.4-10.2) 11/05/20 04:23 Total Bilirubin 0.50 mg/dL (0.1-1.2) 11/03/20 22:45 AST 16 units/L (5-40) 11/03/20 22:45 ALT 13 units/L (7-56) 11/03/20 22:45 Alkaline Phosphatase 85 units/L (35-129) 11/03/20 22:45 Troponin T < 0.010 ng/mL (0.00-0.029) 11/03/20 22:45 NT-Pro-B Natriuret Pep 125.2 pg/mL (0-900) 11/03/20 22:45 Total Protein 6.9 g/dL (6.3-8.2) 11/03/20 22:45 Albumin 4.4 g/dL (3.9-5) 11/03/20 22:45 Albumin/Globulin Ratio 1.8 % 11/03/20 22:45 Active Medications - Current Medications Current Medications: Generic Name Dose Route Start Last Admin Trade Name Freq PRN Reason Stop Dose Admin Acetaminophen 650 mg 11/04/20 01:06 Acetaminophen 325 Mg Tab PO Q6H PRN Pain MILD(1-3)/Fever >100.5/MOTTA Albuterol 2.5 mg 11/04/20 08:02 Albuterol 2.5 Mg/3 Ml Nebu IH Q4HRT PRN Shortness Of Breath Albuterol/Ipratropium 1 ampul 11/05/20 08:00 Ipratropium/Albuterol Sulfate 3 Ml Ampul.Neb IH Q6HRT KIMBERLY Alprazolam 0.25 mg 11/04/20 08:00 Alprazolam 0.25 Mg Tab PO TID PRN Anxiety Budesonide 0.5 mg 11/04/20 08:00 11/04/20 20:56 Budesonide 0.5 Mg/2 Ml Nebu IH 0.5 mg Q12HRT KIMBERLY Administration Heparin Sodium (Porcine) 5,000 unit 11/04/20 06:00 11/05/20 06:01 Heparin 5,000 Unit/1 Ml Vial SUB-Q 5,000 unit Q8HR KIMBERLY Administration Hydralazine HCl 10 mg 11/04/20 08:30 11/04/20 12:06 Hydralazine 20 Mg/1 Ml Inj IV 10 mg Q4H PRN Administration Hypertension Hydrochlorothiazide 12.5 mg 11/04/20 10:00 11/04/20 12:04 Hydrochlorothiazide 12.5 Mg Cap PO 12.5 mg DAILY KIMBERLY Administration Magnesium Hydroxide 30 ml 11/04/20 01:06 Magnesium Hydroxide (Mom) Oral Liqd Udc PO Q4H PRN Constipation Methylprednisolone Sodium Succinate 40 mg 11/04/20 06:00 11/05/20 06:01 Methylprednisolone Sod Succinate 40 Mg/1 Ml Inj IV 40 mg Q8HR KIMBERLY Administration Montelukast Sodium 10 mg 11/04/20 22:00 11/04/20 22:30 Montelukast 10 Mg Tab PO 10 mg QHS KIMBERLY Administration Morphine Sulfate 2 mg 11/04/20 01:06 Morphine 2 Mg/1 Ml Inj IV Q4H PRN Pain, Moderate (4-6) Morphine Sulfate 4 mg 11/04/20 01:06 Morphine 4 Mg/1 Ml Inj IV Q4H PRN Pain , Severe (7-10) Ondansetron HCl 4 mg 11/04/20 01:06 Ondansetron 4 Mg/2 Ml Inj IV Q8H PRN Nausea And Vomiting Sodium Chloride 10 ml 11/04/20 10:00 11/04/20 22:00 Sodium Chloride 0.9% 10 Ml Flush Syringe IV 10 ml BID KIMBERLY Administration Sodium Chloride 10 ml 11/04/20 01:06 Sodium Chloride 0.9% 10 Ml Flush Syringe IV PRN PRN LINE FLUSH Valsartan 80 mg 11/04/20 10:00 11/04/20 12:04 Valsartan 40 Mg Tab PO 80 mg QDAY KIMBERLY Administration
[2020-11-05] MEDS: hydroCHLOROthiazide 12.5 MG CAP PO SCH (10:27)
[2020-11-05] MEDS: VALSARTAN 40 MG TAB PO SCH (10:29)
[2020-11-05] MEDS: BUDESONIDE 0.5 MG/2 ML NEBU IH SCH ×2 (10:55→20:37)
[2020-11-05 11:37] LABS: ABG HCO3 24.4 mmol/L (20.0-26.0); ABG Methemoglobin 0.5 % (0.0-1.5); ABG Oxygen Saturation 97.9 % (95.0-99.0); ABG PCO2 38.8 mm Hg; ABG PH 7.416 pH Units (7.350-7.450); ABG PO2 108.8 mm Hg (80.0-90.0)
--- NOTE | 2020-11-05 15:00 | Progress Note ---
Assessment and Plan Assessment and plan: --Acute exacerbation of COPD ; Current Visit: Yes Status: Acute Patient placed on nebulizing treatments and IV steroid. 6 L of nasal cannula oxygen. symptoms slightly improved -- Acute respiratory failure with hypoxia on BiPAP Current Visit: Yes Status: Acute Secondary to the COPD exacerbation. Titrate O2 sats to more than 90% Today patient is tolerating 6 L of nasal cannula oxygen Pulmonary following Home oxygen evaluation at discharge --Spiculated right lung nodule on CTA chest Current Visit: No Status: Chronic Pulmonary consulted --Hypertension/moderate control Current Visit: No Status: Chronic Resume home antihypertensives As needed hydralazine closely monitor blood pressures and adjust as needed --Elevated D-dimers; Current Visit: No Status: Acute CTA negative for PE Venous Doppler to rule out DVT --DVT prophylaxis Current Visit: No Status: Acute We will place patient on subcutaneous heparin. --Full code status Current Visit: No Status: Acute Patient is full code. We will closely monitor the patient and adjust the management as needed Plan of care reviewed with the patient and her nurse Pulmonary evaluation recommendation noted and appreciated Closely monitor the patient and adjust management as needed History Interval history: Seen and examined the patient at the bedside Patient's chart and medications reviewed Patient feels better no new complaints Vital signs noted Hospitalist Physical - Constitutional Vitals: Temp Pulse Resp BP Pulse Ox 98.6 F 100 H 18 128/80 99 11/03/20 22:32 11/05/20 11:17 11/05/20 11:17 11/05/20 14:41 11/05/20 14:41 General appearance: Present: mild distress, well-nourished - EENT Eyes: Present: PERRL, EOM intact - Neck Neck: Present: supple, normal ROM - Respiratory Respiratory effort: normal Respiratory: bilateral: diminished, rhonchi, negative: rales, wheezing - Cardiovascular Rhythm: regular Heart Sounds: Present: S1 & S2 - Extremities Extremities: no ischemia, No edema - Abdominal General gastrointestinal: soft, non-tender, non-distended, normal bowel sounds - Integumentary Integumentary: Present: clear, warm - Psychiatric Psychiatric: appropriate mood/affect, cooperative - Neurologic Neurologic: CNII-XII intact, moves all extremities HEART Score - HEART Score Troponin: Troponin T < 0.010 ng/mL (0.00-0.029) 11/03/20 22:45 Results - Labs CBC & Chem 7: 11/05/20 04:23 11/05/20 04:23 Labs: Laboratory Last Values WBC 13.3 K/mm3 (4.5-11.0) H 11/05/20 04:23 RBC 4.72 M/mm3 (3.65-5.03) 11/05/20 04:23 Hgb 13.2 gm/dl (10.1-14.3) 11/05/20 04:23 Hct 40.4 % (30.3-42.9) 11/05/20 04:23 MCV 86 fl (79-97) 11/05/20 04:23 MCH 28 pg (28-32) 11/05/20 04:23 MCHC 33 % (30-34) 11/05/20 04:23 RDW 13.8 % (13.2-15.2) 11/05/20 04:23 Plt Count 283 K/mm3 (140-440) 11/05/20 04:23 Lymph % (Auto) 13.0 % (13.4-35.0) L 11/03/20 22:45 [place] % (Auto) 8.6 % (0.0-7.3) H 11/03/20 22:45 Eos % (Auto) 1.3 % (0.0-4.3) 11/03/20 22:45 Baso % (Auto) 1.8 % (0.0-1.8) 11/03/20 22:45 Lymph # (Auto) 1.2 K/mm3 (1.2-5.4) 11/03/20 22:45 [place] # (Auto) 0.8 K/mm3 (0.0-0.8) 11/03/20 22:45 Eos # (Auto) 0.1 K/mm3 (0.0-0.4) 11/03/20 22:45 Baso # (Auto) 0.2 K/mm3 (0.0-0.1) H 11/03/20 22:45 Add Manual Diff Complete 11/05/20 04:23 Total Counted 100 11/05/20 04:23 Seg Neutrophils % Card [place] 11/05/20 04:23 Seg Neuts % (Manual) 91.0 % (40.0-70.0) H 11/05/20 04:23 Lymphocytes % (Manual) 5.0 % (13.4-35.0) L 11/05/20 04:23 Monocytes % (Manual) 4.0 % (0.0-7.3) 11/05/20 04:23 Nucleated RBC % Not Reportable 11/05/20 04:23 Seg Neutrophils # 7.2 K/mm3 (1.8-7.7) 11/03/20 22:45 Seg Neutrophils # Man 12.1 K/mm3 (1.8-7.7) H 11/05/20 04:23 Band Neutrophils # 0.0 K/mm3 11/05/20 04:23 Lymphocytes # (Manual) 0.7 K/mm3 (1.2-5.4) L 11/05/20 04:23 Abs React Lymphs (Man) 0.0 K/mm3 11/05/20 04:23 Monocytes # (Manual) 0.5 K/mm3 (0.0-0.8) 11/05/20 04:23 Eosinophils # (Manual) 0.0 K/mm3 (0.0-0.4) 11/05/20 04:23 Basophils # (Manual) 0.0 K/mm3 (0.0-0.1) 11/05/20 04:23 Metamyelocytes # 0.0 K/mm3 11/05/20 04:23 Myelocytes # 0.0 K/mm3 11/05/20 04:23 Promyelocytes # 0.0 K/mm3 11/05/20 04:23 Blast Cells # 0.0 K/mm3 11/05/20 04:23 WBC Morphology Not Reportable 11/05/20 04:23 Hypersegmented Neuts Not Reportable 11/05/20 04:23 Hyposegmented Neuts Not Reportable 11/05/20 04:23 Hypogranular Neuts Not Reportable 11/05/20 04:23 Smudge Cells Not Reportable 11/05/20 04:23 Toxic Granulation Not Reportable 11/05/20 04:23 Toxic Vacuolation Not Reportable 11/05/20 04:23 Dohle Bodies Not Reportable 11/05/20 04:23 Pelger-Huet Anomaly Not Reportable 11/05/20 04:23 [place] Rods Not Reportable 11/05/20 04:23 Platelet Estimate Consistent w auto 11/05/20 04:23 Clumped Platelets Not Reportable 11/05/20 04:23 Plt Clumps, EDTA Not Reportable 11/05/20 04:23 Large Platelets Not Reportable 11/05/20 04:23 Giant Platelets Not Reportable 11/05/20 04:23 Platelet Satelliting Not Reportable 11/05/20 04:23 Plt Morphology Comment Not Reportable 11/05/20 04:23 RBC Morphology Normal 11/05/20 04:23 Dimorphic RBCs Not Reportable 11/05/20 04:23 Polychromasia Not Reportable 11/05/20 04:23 Hypochromasia Not Reportable 11/05/20 04:23 Poikilocytosis Not Reportable 11/05/20 04:23 Anisocytosis Not Reportable 11/05/20 04:23 Microcytosis Not Reportable 11/05/20 04:23 Macrocytosis Not Reportable 11/05/20 04:23 Spherocytes Not Reportable 11/05/20 04:23 Pappenheimer Bodies Not Reportable 11/05/20 04:23 Sickle Cells Not Reportable 11/05/20 04:23 Target Cells Not Reportable 11/05/20 04:23 Tear Drop Cells Not Reportable 11/05/20 04:23 Ovalocytes Not Reportable 11/05/20 04:23 Helmet Cells Not Reportable 11/05/20 04:23 Roach-Welsh Bodies Not Reportable 11/05/20 04:23 [place] Rings Not Reportable 11/05/20 04:23 [place] Cells Not Reportable 11/05/20 04:23 Bite Cells Not Reportable 11/05/20 04:23 Crenated Cell Not Reportable 11/05/20 04:23 Elliptocytes Not Reportable 11/05/20 04:23 Acanthocytes (Spur) Not Reportable 11/05/20 04:23 Rouleaux Not Reportable 11/05/20 04:23 Hemoglobin C Crystals Not Reportable 11/05/20 04:23 Schistocytes Not Reportable 11/05/20 04:23 Malaria parasites Not Reportable 11/05/20 04:23 Charlie Bodies Not Reportable 11/05/20 04:23 Hem Pathologist Commnt No 11/05/20 04:23 PT 13.2 Sec. (12.2-14.9) 08/10/21 04:23 INR 0.95 (0.87-1.13) 11/05/20 04:23 D-Dimer 711.54 ng/mlDDU (0-234) H 11/03/20 22:45 ABG pH 7.416 pH Units (7.350-7.450) 11/05/20 11:30 ABG pCO2 38.8 mm Hg 11/05/20 11:30 ABG pO2 108.8 mm Hg (80.0-90.0) H 11/05/20 11:30 ABG HCO3 24.4 mmol/L (20.0-26.0) 11/05/20 11:30 ABG O2 Saturation 97.9 % (95.0-99.0) 11/05/20 11:30 ABG O2 Content 19.4 (0.0-44) 11/05/20 11:30 ABG Base Excess 0.0 mmol/L (-2.0-3.0) 11/05/20 11:30 ABG Hemoglobin 14.2 gm/dl (12.0-16.0) 11/05/20 11:30 ABG Carboxyhemoglobin 0.6 % (0.0-5.0) 11/05/20 11:30 ABG Methemoglobin 0.5 % (0.0-1.5) 11/05/20 11:30 Oxyhemoglobin 96.8 % (95.0-99.0) 11/05/20 11:30 FiO2 35 % 11/05/20 11:30 Sodium 138 mmol/L (137-145) 11/05/20 04:23 Potassium 4.3 mmol/L (3.6-5.0) 11/05/20 04:23 Chloride 98.6 mmol/L (98-107) 11/05/20 04:23 Carbon Dioxide 28 mmol/L (22-30) 11/05/20 04:23 Anion Gap 16 mmol/L 11/05/20 04:23 BUN 24 mg/dL (7-17) H 11/05/20 04:23 Creatinine 0.9 mg/dL (0.6-1.2) 11/05/20 04:23 Estimated GFR > 60 ml/min 11/05/20 04:23 BUN/Creatinine Ratio 27 % 11/05/20 04:23 Glucose 207 mg/dL (65-100) H 11/05/20 04:23 Calcium 9.6 mg/dL (8.4-10.2) 11/05/20 04:23 Total Bilirubin 0.50 mg/dL (0.1-1.2) 11/03/20 22:45 AST 16 units/L (5-40) 11/03/20 22:45 ALT 13 units/L (7-56) 11/03/20 22:45 Alkaline Phosphatase 85 units/L (35-129) 11/03/20 22:45 Troponin T < 0.010 ng/mL (0.00-0.029) 11/03/20 22:45 NT-Pro-B Natriuret Pep 125.2 pg/mL (0-900) 11/03/20 22:45 Total Protein 6.9 g/dL (6.3-8.2) 11/03/20 22:45 Albumin 4.4 g/dL (3.9-5) 11/03/20 22:45 Albumin/Globulin Ratio 1.8 % 11/03/20 22:45 Active Medications - Current Medications Current Medications: Generic Name Dose Route Start Last Admin Trade Name Freq PRN Reason Stop Dose Admin Acetaminophen 650 mg 11/04/20 01:06 Acetaminophen 325 Mg Tab PO Q6H PRN Pain MILD(1-3)/Fever >100.5/MOTTA Albuterol 2.5 mg 11/04/20 08:02 Albuterol 2.5 Mg/3 Ml Nebu IH Q4HRT PRN Shortness Of Breath Albuterol/Ipratropium 1 ampul 11/05/20 08:00 11/05/20 10:55 Ipratropium/Albuterol Sulfate 3 Ml Ampul.Neb IH 1 ampul Q6HRT KIMBERLY Administration Alprazolam 0.25 mg 11/04/20 08:00 Alprazolam 0.25 Mg Tab PO TID PRN Anxiety Budesonide 0.5 mg 11/04/20 08:00 11/05/20 10:55 Budesonide 0.5 Mg/2 Ml Nebu IH 0.5 mg Q12HRT KIMBERLY Administration Heparin Sodium (Porcine) 5,000 unit 11/04/20 06:00 11/05/20 06:01 Heparin 5,000 Unit/1 Ml Vial SUB-Q 5,000 unit Q8HR KIMBERLY Administration Hydralazine HCl 10 mg 11/04/20 08:30 11/04/20 12:06 Hydralazine 20 Mg/1 Ml Inj IV 10 mg Q4H PRN Administration Hypertension Hydrochlorothiazide 12.5 mg 11/04/20 10:00 11/05/20 10:27 Hydrochlorothiazide 12.5 Mg Cap PO 12.5 mg DAILY KIMBERLY Administration Magnesium Hydroxide 30 ml 11/04/20 01:06 Magnesium Hydroxide (Mom) Oral Liqd Udc PO Q4H PRN Constipation Methylprednisolone Sodium Succinate 40 mg 11/04/20 06:00 11/05/20 06:01 Methylprednisolone Sod Succinate 40 Mg/1 Ml Inj IV 40 mg Q8HR KIMBERLY Administration Montelukast Sodium 10 mg 11/04/20 22:00 11/04/20 22:30 Montelukast 10 Mg Tab PO 10 mg QHS KIMBERLY Administration Morphine Sulfate 2 mg 11/04/20 01:06 Morphine 2 Mg/1 Ml Inj IV Q4H PRN Pain, Moderate (4-6) Morphine Sulfate 4 mg 11/04/20 01:06 Morphine 4 Mg/1 Ml Inj IV Q4H PRN Pain , Severe (7-10) Ondansetron HCl 4 mg 11/04/20 01:06 Ondansetron 4 Mg/2 Ml Inj IV Q8H PRN Nausea And Vomiting Sodium Chloride 10 ml 11/04/20 10:00 11/05/20 10:27 Sodium Chloride 0.9% 10 Ml Flush Syringe IV 10 ml BID KIMBERLY Administration Sodium Chloride 10 ml 11/04/20 01:06 Sodium Chloride 0.9% 10 Ml Flush Syringe IV PRN PRN LINE FLUSH Valsartan 80 mg 11/04/20 10:00 11/05/20 10:29 Valsartan 40 Mg Tab PO 80 mg QDAY KIMBERLY Administration
--- NOTE | 2020-11-05 20:10 | Progress Note ---
Assessment and Plan 64-year-old female with known history of COPD and hypertension brought into the emergency room today for evaluation of shortness of breath which has been ongoing for the past 2 days. She has had intermittent cough which is slightly productive of whitish sputum. Patient has been using her nebulizer treatment without any significant improvement and she also indicates she has been wheezing. Patient is on oxygen at home 4 L. She received nebulizing treatment with DuoNeb, magnesium sulfate and Solu-Medrol via EMS with some improvement. She denies any fever or chills, no chest pain, no nausea vomiting, no abdominal pain, no headache or dizziness, no diaphoresis. She has had some mild cough which is productive of some whitish sputum. Patient denies any sick contacts and no recent travel. Denies any contact with anyone with COVID-19. Upon arrival in the emergency room she was quite tachycardic, tachypneic and hypoxic and subsequently placed on BiPAP. Work-up in the emergency room today chest x-ray did not reveal any acute ab normality. She had an elevated D-dimer and subsequently a CT angiogram of the chest was done. CT angiogram was negative for pulmonary embolism however there is a stable 6 mm spiculated nodule in the right upper lobe with moderate emphysema. Patient has history of smoking 1/2 a pack a day for 13 years. Says stopped smoking 3 months ago. Denies alcohol or drug abuse. 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 No Known drug allergies. Patient admitted with COPD exacerbation. Patient is alert , awake, and presently on high flow o2 4 litres via nasal canula. O2 saturation 98%. BIPAP 16/8, Rate 18, FIO2 40% stand by in the room.She seem better and breathing better. She denies chest pain, shortness of breath, and cough. Patient afebrile, Leukocytosis present. D-Dimer: 711.54 ABG: ABG pH 7.416 pH Units (7.350-7.450) 11/05/20 11:30 ABG pCO2 38.8 mm Hg 11/05/20 11:30 ABG pO2 108.8 mm Hg (80.0-90.0) H 11/05/20 11:30 ABG O2 Saturation 97.9 % (95.0-99.0) 11/05/20 11:30 CXRay (11/03/20) reported: No acute findings. Patient presently on I/V solumedrol, Albuterol/atrovent aerosol treatment, S/C Heparin, Singulair, Pulmicort, Proventil. CTA of chest 11/03/20 reported stable 6 mm spiculated nodule in the right upper lobe with moderate emphysema. Strongly recommend to follow as out patient in my office. Patient was seen in the emergency room. I spent critical care time of 35 minutes obtaining history, review the chart, examine the patient, examine xrays , lab results, talking to the nursing and respiratory therapy and work out plan of treatment in this critically ill Patient. - Patient Problems (1) Acute respiratory failure with hypoxia Current Visit: Yes Status: Acute Plan to address problem: High flow O2 5 litres via nasal canula BIPAP 16/8, Rate 18, FIO2 40% stand by in the room. Continue I/V solumedrol, Albuterol/atrovent aerosol treatments. Continue S/C heparin. ABGs on O2. (2) COPD exacerbation Current Visit: Yes Status: Acute Plan to address problem: High flow O2 5 litres via nasal canula BIPAP 16/8, Rate 18, FIO2 40% stand by in the room. Continue I/V solumedrol, Albuterol/atrovent aerosol treatments. Continue S/C heparin Recommend to add zithromax. (3) Pulmonary nodule Current Visit: Yes Status: Acute Plan to address problem: Stable spiculated nodule right upper lobe. Repeat CAT scan of chest 3 to 6 months. Stressed importance of follow up as out patient. (4) Hypertension Current Visit: Yes Status: Chronic Qualifiers: Hypertension type: primary hypertension Qualified Code(s): I10 - Essential (primary) hypertension Plan to address problem: Management as per primary care. (5) Elevated d-dimer Current Visit: No Status: Acute Plan to address problem: Angio CT Reported No PE. Patient is on S/C heparin. Denies leg swelling or pain. (6) Passive smoke exposure Current Visit: No Status: Chronic Plan to address problem: Conseled to stop smoking. Take precautions to prevent second hand smoking exposure. Subjective Date of service: 11/05/20 Interval history: 64-year-old female with known history of COPD and hypertension brought into the emergency room today for evaluation of shortness of breath which has been ongoing for the past 2 days. She has had intermittent cough which is slightly productive of whitish sputum. Patient has been using her nebulizer treatment without any significant improvement and she also indicates she has been wheezing. Patient is on oxygen at home 4 L. She received nebulizing treatment with DuoNeb, magnesium sulfate and Solu-Medrol via EMS with some improvement. She denies any fever or chills, no chest pain, no nausea vomiting, no abdominal pain, no headache or dizziness, no diaphoresis. She has had some mild cough which is productive of some whitish sputum. Patient denies any sick contacts and no recent travel. Denies any contact with anyone with COVID-19. Upon arrival in the emergency room she was quite tachycardic, tachypneic and hypoxic and subsequently placed on BiPAP. Work-up in the emergency room today chest x-ray did not reveal any acute abnormality. She had an elevated D-dimer and subsequently a CT angiogram of the chest was done. CT angiogram was negative for pulmonary embolism however there is a stable 6 mm spiculated nodule in the right upper lobe with moderate emphysema. Patient has history of smoking 1/2 a pack a day for 13 years. Says stopped smoking 3 months ago. Denies alcohol or drug abuse. 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 No Known drug allergies. Patient admitted with COPD exacerbation. Patient is alert , awake, and presently on high flow o2 4 litres via nasal canula. O2 saturation 98%. BIPAP 16/8, Rate 18, FIO2 40% stand by in the room.She seem better and breathing better. She denies chest pain, shortness of breath, and cough. Patient afebrile, Leukocytosis present. D-Dimer: 711.54 ABG: ABG pH 7.416 pH Units (7.350-7.450) 11/05/20 11:30 ABG pCO2 38.8 mm Hg 11/05/20 11:30 ABG pO2 108.8 mm Hg (80.0-90.0) H 11/05/20 11:30 ABG O2 Saturation 97.9 % (95.0-99.0) 11/05/20 11:30 CXRay (11/03/20) reported: No acute findings. Patient presently on I/V solumedrol, Albuterol/atrovent aerosol treatment, S/C Heparin, Singulair, Pulmicort, Proventil. CTA of chest 11/03/20 reported stable 6 mm spiculated nodule in the right upper lobe with moderate emphysema. Strongly recommend to follow as out patient in my office. Objective Vital Signs - 12hr 11/05/20 11/05/20 11/05/20 08:41 09:01 09:13 Pulse Rate Pulse Rate [ Posterior Bilateral Throughout] Respiratory Rate Respiratory Rate [Posterior Bilateral Throughout] Blood Pressure 129/83 139/85 Blood Pressure 139/85 [Right] O2 Sat by Pulse 99 98 98 Oximetry 11/05/20 11/05/20 11/05/20 09:21 09:41 10:00 Pulse Rate Pulse Rate [ Posterior Bilateral Throughout] Respiratory Rate Respiratory Rate [Posterior Bilateral Throughout] Blood Pressure 139/85 114/69 Blood Pressure [Right] O2 Sat by Pulse 100 100 98 Oximetry 11/05/20 11/05/20 11/05/20 10:01 10:21 10:29 Pulse Rate 106 H Pulse Rate [ Posterior Bilateral Throughout] Respiratory Rate Respiratory Rate [Posterior Bilateral Throughout] Blood Pressure 117/79 117/79 122/80 Blood Pressure [Right] O2 Sat by Pulse 98 98 Oximetry 11/05/20 11/05/20 11/05/20 10:41 11:01 11:03 Pulse Rate Pulse Rate [ 100 H Posterior Bilateral Throughout] Respiratory Rate Respiratory 18 Rate [Posterior Bilateral Throughout] Blood Pressure 122/80 126/84 Blood Pressure [Right] O2 Sat by Pulse 98 100 Oximetry 11/05/20 11/05/20 11/05/20 11:17 11:21 11:41 Pulse Rate 100 H Pulse Rate [ Posterior Bilateral Throughout] Respiratory 18 Rate Respiratory Rate [Posterior Bilateral Throughout] Blood Pressure 126/84 131/90 Blood Pressure 126/84 [Right] O2 Sat by Pulse 100 98 99 Oximetry 11/05/20 11/05/20 11/05/20 12:01 12:14 12:21 Pulse Rate Pulse Rate [ Posterior Bilateral Throughout] Respiratory Rate Respiratory Rate [Posterior Bilateral Throughout] Blood Pressure 127/87 127/87 Blood Pressure 127/87 [Right] O2 Sat by Pulse 97 97 97 Oximetry 11/05/20 11/05/20 11/05/20 12:41 13:41 14:41 Pulse Rate Pulse Rate [ Posterior Bilateral Throughout] Respiratory Rate Respiratory Rate [Posterior Bilateral Throughout] Blood Pressure 118/91 118/91 128/80 Blood Pressure [Right] O2 Sat by Pulse 97 99 99 Oximetry 11/05/20 11/05/20 11/05/20 14:59 15:21 15:41 Pulse Rate Pulse Rate [ Posterior Bilateral Throughout] Respiratory Rate Respiratory Rate [Posterior Bilateral Throughout] Blood Pressure 115/83 127/82 Blood Pressure 128/80 [Right] O2 Sat by Pulse 99 100 100 Oximetry 11/05/20 11/05/20 11/05/20 16:01 16:21 16:30 Pulse Rate Pulse Rate [ Posterior Bilateral Throughout] Respiratory Rate Respiratory Rate [Posterior Bilateral Throughout] Blood Pressure 121/76 121/76 Blood Pressure 121/76 [Right] O2 Sat by Pulse 99 96 96 Oximetry 11/05/20 11/05/20 11/05/20 16:41 17:21 17:41 Pulse Rate Pulse Rate [ Posterior Bilateral Throughout] Respiratory Rate Respiratory Rate [Posterior Bilateral Throughout] Blood Pressure 139/89 139/89 144/98 Blood Pressure [Right] O2 Sat by Pulse 99 96 97 Oximetry 11/05/20 11/05/20 11/05/20 17:59 18:01 18:11 Pulse Rate Pulse Rate [ Posterior Bilateral Throughout] Respiratory Rate Respiratory Rate [Posterior Bilateral Throughout] Blood Pressure 145/90 145/90 Blood Pressure 144/98 [Right] O2 Sat by Pulse 97 98 98 Oximetry 11/05/20 11/05/20 18:31 18:34 Pulse Rate Pulse Rate [ Posterior Bilateral Throughout] Respiratory Rate Respiratory Rate [Posterior Bilateral Throughout] Blood Pressure 140/92 Blood Pressure [Right] O2 Sat by Pulse 98 98 Oximetry Constitutional: no acute distress, alert Eyes: non-icteric ENT: oropharynx moist Neck: supple, no lymphadenopathy, no JVD Effort: mildly labored Ascultation: Bilateral: diminished breath sounds, other (Prolonged expiratory phase.) Cardiovascular: regular rate and rhythm Gastrointestinal: normoactive bowel sounds, soft, non-tender Integumentary: normal Extremities: no cyanosis, no edema Neurologic: normal mental status, non-focal exam Psychiatric: mood appropriate, affect normal CBC and BMP: 11/05/20 04:23 11/05/20 04:23 ABG, PT/INR, D-dimer: ABG ABG pH 7.416 pH Units (7.350-7.450) 11/05/20 11:30 ABG pCO2 38.8 mm Hg 11/05/20 11:30 ABG pO2 108.8 mm Hg (80.0-90.0) H 11/05/20 11:30 ABG O2 Saturation 97.9 % (95.0-99.0) 11/05/20 11:30 PT/INR, D-dimer PT 13.2 Sec. (12.2-14.9) 11/05/20 04:23 INR 0.95 (0.87-1.13) 11/05/20 04:23 D-Dimer 711.54 ng/mlDDU (0-234) H 11/03/20 22:45 Abnormal lab findings: Abnormal Labs 11/03/20 11/03/20 11/03/20 22:45 22:45 22:45 WBC RBC 5.08 H Hgb 14.6 H Hct 43.0 H Lymph % (Auto) 13.0 L Lyon % (Auto) 8.6 H Baso # (Auto) 0.2 H Seg Neutrophils % 75.3 H Seg Neuts % (Manual) Lymphocytes % (Manual) Seg Neutrophils # Man Lymphocytes # (Manual) D-Dimer 711.54 H ABG pO2 BUN Glucose 101 H 11/05/20 11/05/20 11/05/20 04:23 04:23 11:30 WBC 13.3 H RBC Hgb Hct Lymph % (Auto) Lyon % (Auto) Baso # (Auto) Seg Neutrophils % Seg Neuts % (Manual) 91.0 H Lymphocytes % (Manual) 5.0 L Seg Neutrophils # Man 12.1 H Lymphocytes # (Manual) 0.7 L D-Dimer ABG pO2 108.8 H BUN 24 H Glucose 207 H
[2020-11-05] MEDS: MONTELUKAST 10 MG TAB PO SCH (22:38)
[2020-11-06] MEDS: IPRATROPIUM/ALBUTEROL SULFATE 3 ML AMPUL.NEB IH SCH ×4 (02:23→15:25)
[2020-11-06] MEDS: methylPREDNISolone Sod Succinate 40 MG/1 ML INJ IV SCH ×2 (05:53→14:30)
[2020-11-06] MEDS: HEPARIN 5,000 UNIT/1 ML VIAL SUB-Q SCH ×2 (05:54→14:31)
[2020-11-06] MEDS: BUDESONIDE 0.5 MG/2 ML NEBU IH SCH (08:45)
[2020-11-06] MEDS: hydroCHLOROthiazide 12.5 MG CAP PO SCH (11:00)
[2020-11-06] MEDS: VALSARTAN 40 MG TAB PO SCH (11:37)
[2020-11-06 15:36] VITALS: BP 138/88
--- NOTE | 2020-11-06 15:39 | Discharge Summary ---
Providers - Providers Date of Admission: 11/04/20 15:33 Date of discharge: 11/06/20 Attending physician: JOON VIVAR 11/04/20 01:06 Consult to Physician [CONS] Routine Comment: Consulting Provider: ERICA ARENAS Physician Instructions: Reason For Exam: ACUTE ON CHRONIC RESP. FAILURE, COPD EXAC Primary care physician: [facility] Hospitalization Reason for admission: Worsening shortness of breath/acute exacerbation of COPD Condition: Stable Pertinent studies: CTA chest; negative for PE stable spiculated nodule in the right upper lobe with moderate emphysema Patient will follow with millwright supervisor per schedule Chest x-ray no acute abnormality Hospital course: 64-year-old female with known history of COPD and hypertension brought into the emergency room today for evaluation of shortness of breath which has been ongoing for the past 2 days. She has had intermittent cough which is slightly productive of whitish sputum. Patient has been using her nebulizer treatment without any significant improvement and she also indicates she has been wheezing. Patient is on oxygen at home 4 L. She received nebulizing treatment with DuoNeb, magnesium sulfate and Solu-Medrol via EMS with some improvement. Initial work-up is consistent with acute hypoxic respiratory failure, acute exacerbation of COPD Admitted to the hospital appropriately managed, evaluated by millwright supervisor, medications optimized Patient spiculated mass on CTA is chronic and stable Patient symptoms significantly improved Today patient is comfortable no new complaints vital signs stable Patient already has 3 to 6 L of nasal cannula oxygen at home Advised to use oxygen as needed Patient is hemodynamically and clinically stable at discharge Discharge diagnosis; --Acute exacerbation of COPD ; Current Visit: Yes Status: Acute -- Acute respiratory failure with hypoxia on BiPAP Current Visit: Yes Status: Acute Secondary to the COPD exacerbation. --Spiculated right lung nodule on CTA chest Current Visit: No Status: Chronic Chronic , stable , follow-up pulmonary upon discharge --Hypertension/moderate control Current Visit: No Status: Chronic --Elevated D-dimers; Current Visit: No Status: Acute CTA negative for PE Acute exacerbation of COPD Acute hypoxic respiratory failure Requiring BiPAP/on home oxygen Hypertension Elevated D-dimers, negative PE Disposition: [id number] HOME UNDER HOME [facility] Final Discharge Diagnosis (Prints w/discharge instructions): Acute hypoxic re spiratory failure. Requiring BiPAP/now on nasal cannula oxygen. Home oxygen dependent. Patient uses 3 to 6 L nasal cannula oxygen as needed. Acute exacerbation of COPD. Spiculated right lung nodule stable. Elevated D- dimers/negative for PE Time spent for discharge: 35 min Core Measure Documentation - Palliative Care Palliative Care/ Comfort Measures: Not Applicable - Core Measures Any of the following diagnoses?: none Exam - Constitutional Vitals: Temp Pulse Resp BP Pulse Ox 98.7 F 84 20 138/79 96 11/05/20 20:35 11/06/20 15:10 11/06/20 15:10 11/06/20 13:31 11/06/20 13:31 General appearance: Present: no acute distress, well-nourished - EENT Eyes: Present: PERRL, EOM intact - Neck Neck: Present: supple, normal ROM - Respiratory Respiratory effort: normal Respiratory: bilateral: diminished, negative: rales, rhonchi, wheezing - Cardiovascular Rhythm: regular Heart Sounds: Present: S1 & S2 - Extremities Extremities: no ischemia, No edema - Abdominal General gastrointestinal: Present: soft, non-tender, non-distended, normal bowel sounds - Integumentary Integumentary: Present: clear, warm - Musculoskeletal Musculoskeletal: strength equal bilaterally, generalized weakness - Psychiatric Psychiatric: appropriate mood/affect, cooperative - Neurologic Neurologic: CNII-XII intact, moves all extremities Plan Activity: advance as tolerated Diet: other (Cardiac diet) Additional Instructions: Patient already has home oxygen, advised to continue home oxygen as before. If you have worsening symptoms contact MD or go to the emergency room as needed. Advised to follow primary care physician, and millwright supervisor per schedule Follow up with: PRIMARY MD [facility] [Primary Care Provider] - 3-5 Days ABBI LOYD MD [Staff Physician] - 7 Days Prescriptions: Prednisone [predniSONE 10 mg (6-Day Pack, 21 Tabs)] 10 mg PO .TAPER #1 tab.ds.pk Albuterol Mdi (or & Nicu Only) [ProAir HFA Inhaler] 2 puff IH QID PRN #8.5 gram PRN Reason: Shortness Of Breath
== END 2020-11-06 16:31 | disposition home health service (06) | DRG 189 ==
LOC: ED 22:31 → IMCU 11-04 00:42 → OBSVTOIN 11-04 15:33 → CC1 11-06 00:25 → 4A 11-06 09:50 → 3A 11-06 15:44
PROVIDERS: ADMIT Internal Medicine Geriatric Medicine; ATTEND Internal Medicine
PROC: 5A09357 Assistance with Respiratory Ventilation, Less than 24 Consecutive Hours, Continuous Positive Airway Pressure (ICD-10-PCS; principal; 2020-11-03)
PROC: 4A033R1 Measurement of Arterial Saturation, Peripheral, Percutaneous Approach (ICD-10-PCS; 2020-11-03)
DX: J96.01 Acute respiratory failure with hypoxia (principal); J44.1 Chronic obstructive pulmonary disease with (acute) exacerbation; R91.1 Solitary pulmonary nodule; I10 Essential (primary) hypertension; Z79.899 Other long term (current) drug therapy; R79.1 Abnormal coagulation profile; Z99.81 Dependence on supplemental oxygen
CPT/HCPCS: 36415; 36600; 71045; 71275; 80048; 80053; 82803; 83880; 84484; 85007; 85025; 85379; 85610; 93005; 94640; 94644; G0378; J0360; J1644; J2060; J2920; J3475; Q9967

== ENCOUNTER 2021-10-14 11:40 | Emergency (ER) | payer MEDICAID ==
[~2021-10-14 11:40] MED LIST: AMIODARONE 150 MG/3 ML INJ IV ONE; ATROPINE 1 MG/ML VIAL ONE; CALCIUM CHLORIDE 1,000 MG/10 ML SYRINGE IV ONE; DOPamine DRIP 800 MG/D5W 250ML PreMix IV ONE; EPINEPHrine 1 MG/10 ML SYRINGE ONE; LIDOCAINE PF 100 MG/5 ML (CARDIAC SYRINGE) IV ONE; LIDOCAINE/D5W 2 GM/500 ML (0.4%) DRIP IV ONE; SODIUM BICARB 8.4% 50 MEQ/50 ML SYRINGE IV ONE
[2021-10-14] MEDS ORDERED: SODIUM CHLORIDE 0.9% 1000 ML 1,000 ML IV ONE (11:58)
[2021-10-14] MEDS ORDERED: SODIUM BICARBONATE 150 MEQ in DEXTROSE 5% IN WATER 1,000 ML IV SCH (12:00)
[2021-10-14] MEDS ORDERED: NORepinephrine/NS 8 MG-250 ML 8 MG/250 ML INFUS..BTL IV SCH (12:00)
[2021-10-14 12:08] LABS: ABG Base Excess -15.6 mmol/L (-2.0-3.0); ABG HCO3 14.9 mmol/L (20.0-26.0); ABG Methemoglobin 0.3 % (0.0-1.5); ABG Oxygen Saturation 99.4 % (95.0-99.0); ABG PCO2 59.5 mm Hg
[2021-10-14] MEDS ORDERED: methylPREDNISolone Sod Suc 500 MG in SODIUM CHLORIDE 0.9% 100 ML IV ONE (12:09)
[2021-10-14 12:22] LABS: ABG PH 7.018 pH Units (7.350-7.450); ABG PO2 306.6 mm Hg (80.0-90.0)
[2021-10-14] MEDS ORDERED: SODIUM BICARB 8.4% 50 MEQ/50 ML SYRINGE IV ONE (12:31)
--- NOTE | 2021-10-14 12:31 | XRay Report ---
CHEST 1 VIEW 10/14/2021 12:04 PM INDICATION / CLINICAL INFORMATION: Altered Mental Status. COMPARISON: 11/03/2020 FINDINGS: SUPPORT DEVICES: Endotracheal tube is in satisfactory position. Esophagogastric tube extends below th e diaphragm. HEART / MEDIASTINUM: No significant abnormality. LUNGS / PLEURA: There is mild airspace disease in the right lung base and somewhat diffusely in the r ight upper lobe. The left lung is clear. No pneumothorax. ADDITIONAL FINDINGS: No significant additional findings. IMPRESSION: 1. Mild right lung airspace disease. This could be due to pneumonia. Signer Name: Stevan Heath MD Signed: 10/14/2021 12:26 PM Workstation Name: [id number]
[2021-10-14] MEDS ORDERED: cefTRIAXone/NS 1 GM/50 ML 1 GM/50 ML BAG IV ONE (12:34)
[2021-10-14] MEDS ORDERED: DOPamine 800 MG/D5W 250ML 800 MG/250 ML BAG IV ONE (12:40)
--- NOTE | 2021-10-14 12:55 | Emergency Department Report ---
ED General Adult HPI - General Chief complaint: Cardiac Arrest/CPR Stated complaint: CARDIAC ARREST PUI?: No Time Seen by Provider: 10/14/21 11:58 Source: family, EMS Mode of arrival: Stretcher Limitations: Other - History of Present Illness Initial comments: pt was brought in intubated with IO for SOB and witnessed arrest by EMS, family reported she had sudden SOB and called EMS and arrested epi given before arrival with BS of 45 d 10 given too -: Sudden, minutes(s) Worsens with: none Associated Symptoms: denies: denies other symptoms, confusion, chest pain, cough Treatments Prior to Arrival: none - Related Data Home Medications Medication Instructions Recorded Confirmed Last Taken Loratadine 10 mg PO DAILY 03/23/19 03/23/19 Unknown Montelukast Sodium 10 mg PO DAILY 03/23/19 03/23/19 Unknown Pantoprazole 40 mg PO HS 03/23/19 03/23/19 Unknown Potassium Chloride 10 meq PO DAILY 03/23/19 03/23/19 Unknown hydroCHLOROthiazide [HCTZ] 12.5 mg PO DAILY 03/23/19 03/23/19 Unknown Previous Rx's Medication Instructions Recorded Last Taken Type Budesonide [Pulmicort Respules] 0.5 mg IH Q12HRT #60 nebu 10/22/18 Unknown Rx Tiotropium [Spiriva] 18 mcg IH QDAY #30 cap 10/22/18 Unknown Rx ALBUTEROL NEB's [Proventil 0.083% 2.5 mg IH TID PRN #1 box 07/02/20 Unknown Rx NEBS] Albuterol Mdi (or & Nicu Only) 2 puff IH QID PRN #1 inhalation 07/02/20 Unknown Rx [ProAir HFA Inhaler] ALPRAZolam [Xanax TAB] 0.25 mg PO TID PRN #15 tab 08/15/20 Unknown Rx Valsartan [Diovan] 80 mg PO QDAY #60 tablet 08/15/20 Unknown Rx Albuterol Mdi (or & Nicu Only) 2 puff IH QID PRN #8.5 gram 11/06/20 Unknown Rx [ProAir HFA Inhaler] Prednisone [predniSONE 10 mg 10 mg PO .TAPER #1 tab.ds.pk 11/06/20 Unknown Rx (6-Day Pack, 21 Tabs)] Allergies Allergy/AdvReac Type Severity Reaction Status Date / Time No Known Allergies Allergy Verified 10/14/21 12:09 ED Review of Systems ROS: Stated complaint: CARDIAC ARREST Other details as noted in HPI Comment: Unobtainable due to pts medical conditions ED Past Medical Hx - Past Medical History Hx Hypertension: Yes Hx CVA: No Hx Heart Attack/AMI: No Hx Congestive Heart Failure: No Hx Diabetes: No Hx Deep Vein Thrombosis: No Hx Pulmonary Embolism: No Hx GERD: No Hx Liver Disease: No Hx Renal Disease: No Hx Sickle Cell Disease: No Hx Arthritis: No Hx Headaches / Migraines: No Hx Seizures: No Hx Kidney Stones: No Hx Psychiatric Treatment: No Hx Asthma: Yes Hx COPD: Yes Hx Tuberculosis: No Hx Dementia: No Hx HIV: No - Surgical History Hx Coronary Stent: No Hx Open Heart Surgery: No Hx Pacemaker: No Hx Internal Defibrillator: No Hx Cholecystectomy: No Hx Appendectomy: No Hx Breast Surgery: No - Social History Smoking Status: Unknown if ever smoked - Medications Home Medications: Home Medications Medication Instructions Recorded Confirmed Last Taken Type Budesonide [Pulmicort Respules] 0.5 mg IH Q12HRT #60 nebu 10/22/18 03/23/19 Unknown Rx Tiotropium [Spiriva] 18 mcg IH QDAY #30 cap 10/22/18 03/23/19 Unknown Rx Loratadine 10 mg PO DAILY 03/23/19 03/23/19 Unknown History Montelukast Sodium 10 mg PO DAILY 03/23/19 03/23/19 Unknown History Pantoprazole 40 mg PO HS 03/23/19 03/23/19 Unknown History Potassium Chloride 10 meq PO DAILY 03/23/19 03/23/19 Unknown History hydroCHLOROthiazide [HCTZ] 12.5 mg PO DAILY 03/23/19 03/23/19 Unknown History ALBUTEROL NEB's [Proventil 0.083% 2.5 mg IH TID PRN #1 box 07/02/20 Unknown Rx NEBS] Albuterol Mdi (or & Nicu Only) 2 puff IH QID PRN #1 inhalation 07/02/20 Unknown Rx [ProAir HFA Inhaler] ALPRAZolam [Xanax TAB] 0.25 mg PO TID PRN #15 tab 08/15/20 Unknown Rx Valsartan [Diovan] 80 mg PO QDAY #60 tablet 08/15/20 Unknown Rx Albuterol Mdi (or & Nicu Only) 2 puff IH QID PRN #8.5 gram 11/06/20 Unknown Rx [ProAir HFA Inhaler] Prednisone [predniSONE 10 mg 10 mg PO .TAPER #1 tab.ds.pk 11/06/20 Unknown Rx (6-Day Pack, 21 Tabs)] ED Physical Exam - General Limitations: Other General appearance: other (unconsious) - Head Head exam: Present: atraumatic, normocephalic - Eye Eye exam: Present: other (fixed and dilated) - ENT ENT exam: Present: normal exam - Neck Neck exam: Present: normal inspection - Respiratory Respiratory exam: Present: other (no psonatnsous breath) - Cardiovascular Cardiovascular Exam: Present: other (no spontaneous ) - GI/Abdominal GI/Abdominal exam: Present: soft - Expanded Neurological Exam Expanded Best Eye Response (Miguel Angel): (1) no response Best Motor Response (Miguel Angel): (1) no motor response Best Verbal Response (Miguel Angel): (1) no verbal response Miguel Angel Total: 3 ED Course Vital Signs 10/14/21 10/14/21 10/14/21 11:38 11:45 12:01 Temperature Pulse Rate 150 H 140 H 187 H Respiratory 13 19 Rate Blood Pressure 99/66 99/66 Blood Pressure [Left] O2 Sat by Pulse 70 L 86 81 L Oximetry 10/14/21 10/14/21 10/14/21 12:04 12:15 12:22 Temperature 97.1 F L Pulse Rate 99 H 158 H 162 H Respiratory 44 H 18 Rate Blood Pressure 99/66 47/18 Blood Pressure 123/62 [Left] O2 Sat by Pulse 100 99 99 Oximetry 10/14/21 10/14/21 12:29 12:31 Temperature Pulse Rate 160 H 134 H Respiratory 25 H Rate Blood Pressure 123/75 123/75 Blood Pressure [Left] O2 Sat by Pulse 99 92 Oximetry ED Medical Decision Making - EKG Data -: EKG Interpreted by Me - EKG Data 10/14/21 12:47 afib with CVR multiple PVCs - Radiology Data Radiology results: report reviewed - Medical Decision Making intubated prior arrival , epi times 5 before coming in BS 45 d 10 , IO prior to arrival, on locus device on arrival Bicarb and calcium and pi gven , return of spont circulation, multiple arrests , pronounced at 12 44 Critical Care Time: Yes Critical care time in (mins) excluding proc time.: 100 Critical care attestation.: If time is entered above; I have spent that time in minutes in the direct care of this critically ill patient, excluding procedure time. ED Disposition Clinical Impression: Cardiac arrest Disposition: 20 Is pt being admited?: No Does the pt Need Aspirin: No Condition: Undetermined Referrals: PRIMARY CARE, [Primary Care Provider] - 3-5 Days
[2021-10-14 13:32] VITALS: BP 91/22
--- NOTE | 2021-10-14 14:22 | Procedure Note ---
Date of procedure: 10/14/21 Pre-op diagnosis: Acute respiratory failure, cardiogenic shock, cardiac arrest Post-op diagnosis: same Procedure: Right internal jugular vein triple-lumen catheter placement under ultrasound guidance. The patient was prepped and draped in the usual sterile fashion. Timeout was taken with the patient nurse at bedside to verify the correct patient, correct procedure, correct operative site. Local anesthesia obtained with 1% lidocaine. The Seldinger technique was utilized under ultrasound guidance to access the right internal jugular vein without difficulty. A seeker needle was inserted into the right internal jugular vein under ultrasound guidance. A guidewire was then advanced via the seeker needle into the right internal jugular vein without difficulty and the seeker needle subsequently removed. A scalpel was used to incise the skin at the insertion site. A dilator was then passed over the guidewire into the right internal jugular vein. A preflush triple-lumen catheter was then advanced into the right internal jugular vein without di fficulty. The guidewire was then subsequently removed. All 3 ports flush and drawl with ease. 3-0 silk suture was utilized to secure the line in place. A Biopatch was placed at the insertion site. And a sterile dressing was then applied to cover the triple-lumen catheter. Estimated blood loss minimal. Complications none. Specimens none. Anesthesia: local Surgeon: LISA HAN Estimated blood loss: minimal Pathology: none Condition: critical Disposition: ICU
--- NOTE | 2021-10-14 14:22 | History and Physical Report ---
History of Present Illness Chief complaint: Unresponsive History of present illness: 66 YO Female with COPD, hypertension, GERD, nicotine dependence, moderate asthma, vascular dementia, cerebral atherosclerosis presents to ED for evaluation. Patient is in bed in a ventilatory support at the time my evaluation is unable to provide history. Patient history provided by EMS staff, ED staff, as well as the patient's family was at bedside during exam and interview. As per family the patient became unresponsive while at her home. EMS was notified and upon arrival the patient was found to be in distress due to cardiac arrest. Patient initiated on ACLS protocol and subsequently transported to [facility] for further care and evaluation of the aforementioned symptoms with eventual return of perfusing cardiac rhythm. Upon arrival to [facility] emergency department the patient again experienced cardiac arrest and was again treated in a closed ACLS protocol with return of perfusing cardiac rhythm. Patient found to have acute hypoxemic respiratory failure, cardiogenic shock. Patient admitted to ICU and initiated on IV pressor support. No reports of fever, chills, chest pain, palpitation, productive cough, skin rash, recent contact, known exposure to COVID-19. Prior admission on 11/04/2020 reviewed. All medication listed at time of admission has been reconciled. Advanced care planning conducted in ED. Past History Past Medical History: COPD, GERD, hypertension Past Surgical History: No surgical history, Other (Reviewed) Social history: single, smoking Family history: hypertension Medications and Allergies Allergies Allergy/AdvReac Type Severity Reaction Status Date / Time No Known Allergies Allergy Verified 10/14/21 12:09 Home Medications Medication Instructions Recorded Confirmed Last Taken Type Budesonide [Pulmicort Respules] 0.5 mg IH Q12HRT #60 nebu 10/22/18 03/23/19 Unknown Rx Tiotropium [Spiriva] 18 mcg IH QDAY #30 cap 10/22/18 03/23/19 Unknown Rx Loratadine 10 mg PO DAILY 03/23/19 03/23/19 Unknown History Montelukast Sodium 10 mg PO DAILY 03/23/19 03/23/19 Unknown History Pantoprazole 40 mg PO HS 03/23/19 03/23/19 Unknown History Potassium Chloride 10 meq PO DAILY 03/23/19 03/23/19 Unknown History hydroCHLOROthiazide [HCTZ] 12.5 mg PO DAILY 03/23/19 03/23/19 Unknown History ALBUTEROL NEB's [Proventil 0.083% 2.5 mg IH TID PRN #1 box 07/02/20 Unknown Rx NEBS] Albuterol Mdi (or & Nicu Only) 2 puff IH QID PRN #1 inhalation 07/02/20 Unknown Rx [ProAir HFA Inhaler] ALPRAZolam [Xanax TAB] 0.25 mg PO TID PRN #15 tab 08/15/20 Unknown Rx Valsartan [Diovan] 80 mg PO QDAY #60 tablet 08/15/20 Unknown Rx Albuterol Mdi (or & Nicu Only) 2 puff IH QID PRN #8.5 gram 11/06/20 Unknown Rx [ProAir HFA Inhaler] Prednisone [predniSONE 10 mg 10 mg PO .TAPER #1 tab.ds.pk 11/06/20 Unknown Rx (6-Day Pack, 21 Tabs)] Review of Systems ROS unobtainable: due to endotracheal tube, due to mental status Exam - Constitutional Vitals: Temp Pulse Resp BP Pulse Ox 97.1 F L 134 H 18 91/22 0 L 10/14/21 12:22 10/14/21 12:31 10/14/21 12:45 10/14/21 12:45 10/14/21 13:39 General appearance: Present: severe distress - EENT Eyes: Present: mydriasis ENT: hearing decreased - Neck Neck: Present: supple, normal ROM - Respiratory Respiratory effort: labored Respiratory: bilateral: diminished - Cardiovascular Rhythm: other (Hypotensive, bradycardia) - Extremities Extremities: pulses symmetrical, No edema Peripheral Pulses: abnormal - Abdominal General gastrointestinal: Present: soft, non-tender, non-distended, normal bowel sounds Female genitourinary: Present: normal - Integumentary Integumentary: Present: clear, dry, clammy, decreased turgor - Musculoskeletal Musculoskeletal: generalized weakness - Psychiatric Psychiatric: no appropriate mood/affect, no intact judgment & insight, no memory intact - Neurologic Neurologic: CNII-XII intact, moves all extremities, no gait normal Results - Labs Labs: Abnormal lab results 10/14/21 Range/Units 11:44 ABG pH 7.018 L* (7.350-7.450) pH Units ABG pO2 306.6 H (80.0-90.0) mm Hg ABG HCO3 14.9 L (20.0-26.0) mmol/L ABG O2 Saturation 99.4 H (95.0-99.0) % ABG Base Excess -15.6 L (-2.0-3.0) mmol/L ABG Hemoglobin 9.3 L (12.0-16.0) gm/dl Assessment and Plan - Patient Problems (1) Cardiogenic shock Current Visit: Yes Status: Acute Plan to address problem: Patient treated" with ACLS protocol. Patient initiated on IV pressor support. Titrate pressors to maintain mean arterial pressure greater than equal to 65. The high probability of a clinically significant, sudden or life threatening deterioration of the [cardiac, pulmonary, renal, neuro,] system(s) required my full and direct attention, intervention and personal management. The aggregate critical care time was [95] minutes. This time is in addition to time spent performing reported procedures but includes the following: [x] Data Review and interpretation [x] Patient assessment and monitoring of vital signs [x] Documentation [x] Medication orders and management (2) Acute and chronic respiratory failure Current Visit: No Status: Acute Qualifiers: Respiratory failure complication: hypoxia Qualified Code(s): J96.21 - Acute and chronic respiratory failure with hypoxia Plan to address problem: Patient intubated and placed on ventilatory support. Patient found to have poor prognosis. Wean vent as tolerated, ABG, sedation holiday, daily spontaneous breathing trial. (3) Cardiac arrest Current Visit: Yes Status: Acute Plan to address problem: Patient treated" with ACLS protocol with eventual return of perfusing cardiac rhythm. Patient found to have poor prognosis. (4) Metabolic acidosis Current Visit: Yes Status: Acute Plan to address problem: BMP, IV fluid resuscitation therapy, IV bicarbonate therapy. Supportive care. (5) Anoxic encephalopathy Current Visit: Yes Status: Acute Plan to address problem: CT scan head when medically stable, neuro check, supportive care. (6) DVT prophylaxis Current Visit: Yes Status: Acute Plan to address problem: SCD to bilateral extremities while in bed (7) Advance care planning Current Visit: Yes Status: Acute Plan to address problem: Disease education done, care plan discussed, diagnoses discussed, poor prognosis discussed. Patient found to have symptoms consistent with multiple organ system failure s/p cardiac arrest. Patient family made aware patient prognosis. Patient family acknowledged understanding and agreement with care plan, +30 minutes. (8) Preventative health care Current Visit: Yes Status: Acute Plan to address problem: Patient family counseled regarding poor prognosis. Patient family informed of care plan. Patient family educated regarding risk factor reduction, and home safety. +30 minutes.
--- NOTE | 2021-10-14 14:22 | Event Note ---
Date: 10/14/21 A CODE EUNICE was called. The patient was found to be in asystolic arrest while I was standing at bedside. Patient initiated on ACLS protocol with eventual return of perfusing cardiac rhythm. The patient was found to again have developed asystolic arrest and the patient was then reinitiated on ACLS protocol. On physical exam the patient was found to have the following findings. Neurologic exam: The patient pupils are fixed and dilated absent brainstem reflexes. Pulmonary exam: The patient was found to have absent lung sounds. Cardiac exam: The patient was found to have asystole on the cardiac catheterization technologist. Patient pronounced at 1244 hrs. Patient family made aware. Bereavement counseling offered to family. The high probability of a clinically significant, sudden or life threatening deterioration of the [cardiac, pulmonary, renal, neuro] system(s) required my full and direct attention, intervention and personal management. The aggregate critical care time was [60] minutes. This time is in addition to time spent performing reported procedures but includes the following: [x] Data Review and interpretation [x] Patient assessment and monitoring of vital signs [x] Documentation [x] Medication orders and management
--- NOTE | 2021-10-14 14:22 | Death Note ---
Note Date of : 10/14/21 Time of : 12:44 Time Pronounced: 12:44 - Preliminary Cause of (problem) (1) Anoxic encephalopathy Preliminary cause of (2) Cardiac arrest Preliminary cause of (3) Cardiogenic shock Preliminary cause of (4) Acute and chronic respiratory failure Qualifiers: Respiratory failure complication: hypoxia Qualified Code(s): J96.21 - Acute and chronic respiratory failure with hypoxia Preliminary cause of
--- NOTE | 2021-10-14 19:02 | Electrocardiograph Report ---
[facility] Test Date: 2021-10-14 Test Time: 11:48:21 Pat Name: NASIR HOLDEN Department: Room: Gender: F Clinical Trials Data Coordinator: MARK : 1955 Requested By: ANNIKA GLOVER Order Number: [id number] Reading MD: Babs Wilder Measurements Intervals [place] Rate: 80 P: MN: QRS: 76 QRSD: 146 T: QT: 411 QTc: 474 Interpretive Statements Very poor quality ECG Rhythm is not interpretable Compared to ECG 11/03/2020 23:30:32 Current ECG is of very poor quality Electronically Signed On 10-14-2021 19:01:36 EDT by Babs Wilder
== END 2021-10-14 16:21 ==
LOC: ED 11:40
DX: I46.9 Cardiac arrest, cause unspecified (principal)
CPT/HCPCS: 71045; 82803; 93005; 96361; 96365; 96366; 96368; 96375; 99291; 99292; J0171; J0282; J0461; J1265; J2001; J2930; J3490; J7030; J7070; 94002